=== PATIENT | female | born 1955 | race Two or more races ===

== ENCOUNTER 2021-06-13 10:00 | Outpatient (REF) | payer MEDICARE, MEDICAID, SELFPAY ==
--- NOTE | 2021-06-19 13:30 | MHC.AU.HAS ---
Hearing Aid Evaluation Date of Visit: 06/13/21 Missile Inspector Preflight Used: Declined by Patient Historical Information: Description of Hearing: Borderline normal hearing thresholds at 250 Hz, dropping to a severe high frequency sensorineural hearing loss bilaterally. Current personal amplification information, if applicable: None Summary: Patient is scheduled for a Hearing Aid Evaluation and comes today with an audiogram and medical clearance from [facility]. Discussed the need for consistent every day use and realistic expectations for hearing aids. Patient would like to trial. Discussed appropriate styles of hearing aids and patient wants to try binaural MESFIN style hearing aids. Due to arthritis, patient would like rechargeable hearing aids. Hearing Aid Prescription: Based on the individual?s shared listening needs, communication environments, dexterity, desire for connectivity, and personal preferences, the following prescription for amplification has been made: Right ear: Job Service Consultant: Phonak Model: [place] P 70-R Battery Size: Rechargeable Color: Champagne Rehabilitation Physician: #2 M Type of Dome: Open Left ear:Left ear prescription to be same as Right Hearing Aid above: Job Service Consultant: Phonak Model: [place] P 70-R Battery Size: Rechargeable Color: Champagne Rehabilitation Physician: #2 M Type of Dome: Open Plan of Care: Patient wishes to purchase hearing aids as prescribed Action Taken/Action Needed: Hearing Instrument Fitting to be scheduled when materials arrive Primary Diagnosis: H90.3 Bilateral Sensorineural Hearing Loss Signature:Provider: Adelfo Ennis, CCC-A
== END 2021-06-13 10:01 | disposition home or self-care (01) ==
LOC: HO.HAP 10:00
PROVIDERS: Visit Provider Otolaryngology
DX: Z46.1 Encounter for fitting and adjustment of hearing aid (principal); H90.3 Sensorineural hearing loss, bilateral
CPT/HCPCS: 92591

== ENCOUNTER 2021-07-11 10:04 | Outpatient (REF) | payer MEDICARE, MEDICAID, SELFPAY | END 2021-07-11 10:05 | disposition home or self-care (01) | LOC: HO.HAP 10:04 | PROVIDERS: Visit Provider Otolaryngology | DX: Z46.1 Encounter for fitting and adjustment of hearing aid (principal); H90.3 Sensorineural hearing loss, bilateral | CPT/HCPCS: V5011; V5020; V5160; V5261 ==

== ENCOUNTER 2022-08-21 09:41 | Observation (INO) | payer MEDICARE, MEDICAID, SELFPAY ==
[2022-08-21] VITALS (9 sets, daily range): BP systolic 101–149; BP diastolic 51–88; PULSE 61–95; RESP 14–18; TEMP 36.7–37.3; O2SAT 96–100; BMI 30.4
--- NOTE | ~2022-08-21 | XR_ITS ---
EXAMINATION: XR chest 2V CLINICAL INFORMATION: Reason for Exam dizziness, r/o pna COMPARISON: No prior chest x-ray available in our system for comparison at the time of this dictation. TECHNIQUE: XR chest 2V Limited lateral view overexposed. Lungs and Aleena: No radiographic evidence of acute infiltrates or failure. Pleura: Normal. Costophrenic angles are sharp. No pneumothorax. Heart: The heart is normal in size. Mediastinum: The mediastinum is within normal limits.. Bones: Skeletal structures included are normal for patient's age. XR/XR chest 2V IMPRESSION: No radiographic evidence of acute cardiopulmonary disease.
--- NOTE | ~2022-08-21 | CT_ITS ---
EXAMINATION: CT HEAD WITHOUT CONTRAST CLINICAL INFORMATION: Dizziness COMPARISON: None available. TECHNIQUE: Contiguous axial imaging was performed from the skull base to vertex without intravenous administration of contrast. This CT examination was performed using dose optimization techniques as appropriate, variously including the following: *Automated exposure control *Adjustment of mA and/or kV according to patient size (this includes techniques or standardized protocols for targeted exams where dose is matched to indication/reason for exam; i.e. extremities or head) *Use of iterative reconstruction technique DLP: 608 mGy-cm FINDINGS: There is no evidence of an extra-axial collection. There is no evidence of intra or extra-axial hemorrhage. Ventricles and extra-axial CSF spaces are slightly prominent suggestive of mild generalized atrophy. Alvarado-white matter differentiation is normal. No mass, mass effect or infarct. Small polyp or cyst in the right maxillary sinus. Paranasal sinuses, mastoid air cells and middle ears are otherwise clear. CT/CT head/brain wo IV con IMPRESSION: No acute findings.
--- NOTE | 2022-08-21 10:49 | ED_ITS ---
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 States she feels as though the room is spinning. Denies worse with head movement. Denies feeling lightheaded, denies syncope. Denies headache. Denies blurred vision but states that she has difficulty concentrating on what she is looking at due to dizziness. States last night around 8pm she sat on the couch to eat some vegetables and became diaphoretic. States she has had similar symptoms in the past for which she has seen her PCP. States she was prescribed a medication for her dizziness, but is unsure the name. She took this for her current symptoms without improvement. Denies tinnitus. Reports difficulty with ambulation due to dizziness. She denies any chest pain or dyspnea. Denies fevers. Denies any abdominal pain. She does report nausea, but denies any vomiting. Denies diarrhea or constipation, reports some dark stools the past f ew days. Denies dysuria, hematuria, or other urinary symptoms. Denies back or flank pain. MD complaint: dizziness Onset (ago): day(s) Pain Consistency: constant Relieving factors: none Exacerbating factors: none Associated symptoms: nausea/vomiting (reports nausea, denies vomiting) Related Data Allergies Allergy/AdvReac Type Severity Reaction Status Date / Time No Known Allergies Allergy Verified 08/21/22 09:54 Review of Systems Review of Systems: As per HPI. Yes all other systems are reviewed and are negative Constitutional: Constitutional: Reports as per HPI Neurologic: Denies Abnormal speech present [facility] Social History Social History Advance Directives: No Advance Directives Information Provided: Yes Physical Exam ED Vital Signs: Vital Signs - 24 hr 08/21/22 09:56 08/21/22 12:20 08/21/22 14:10 Temperature 99.1 F 98.1 F Pulse Rate 65 61 64 Respiratory Rate 15 14 Blood Pressure 118/66 132/68 133/66 Pulse Oximetry 98 99 Oxygen Delivery Method Room Air Room Air 08/21/22 14:14 08/21/22 14:23 08/21/22 14:13 Temperature 98.9 F Pulse Rate 70 62 68 Respiratory Rate 18 Blood Pressure 149/79 H 149/79 H 149/79 H Pulse Oximetry 100 Oxygen Delivery Method Room Air BMI result Body Mass Index 30.0 Vital signs have been reviewed and appear to be correct. Blood pressure normal. Heart rate normal. Respiratory rate normal. Temperature normal. Oxygen saturation normal. Const General: cooperative, no acute distress and awake Orientation/consciousness: oriented to person, oriented to place, oriented to time and patient oriented x3 Limitations: no limitations HENMT Head: Yes normocephalic and Yes atraumatic Ears: external ears normal General nose exam: Normal external nose present Face and sinus: Yes face symmetric Mouth: oropharynx normal and moist mucous membranes Teeth and gingiva: edentulous Throat: Yes uvula midline Eyes Visual Cochran: normal visual cochran by confrontation Pupils: Equal, round and reactive pupils present EOM: EOMs intact bilaterally and No Nystagmus present Neck Neck: Yes normal visual inspection and Yes supple Resp Effort & Inspection: normal respiratory effort and able to speak in complete sentences Auscultation: clear to auscultation bilaterally Cardio Rate: regular rate Rhythm: regular rhythm Heart sounds: S1 normal heart sound present and S2 normal heart sound present GI Other: Rectal exam chaperoned by BEA Guthrie. Inspection: Yes normal to inspection Palpation (GI): Soft to palpation and nontender Auscultation: normoactive bowel sounds Rectal Exam - Female: normal sphincter tone and External hemorrhoid(s) present General: Yes no CVA tenderness Back/Spine/Pelvis Back: no CVA tenderness Skin General skin exam: elasticity normal and turgor normal Neuro General: oriented to person, oriented to place, oriented to time, patient oriented x3, tone normal, moves all extremities, no focal motor deficits, CN's II-XI intact bilaterally and deep tendon reflexes 2+ bilaterally Cranial nerves: Yes Equal, round and reactive pupils present and No Nystagmus present Cognition (Neuro): normal cognition Speech: No Abnormal speech present Motor exam (neuro): Pronator motor function not present, no tremor noted, Normal motor muscle tone present throughout and Abnormal motor strength present bila teral lower extremity flexion 4 / 5 and extension 4 / 5 Coordination: [id number] test normal and [id number] test normal Extrem General: Yes full ROM, Yes no pedal edema and Yes no calf tenderness Psych Mental Status: mental status grossly normal Affect: normal affect Thought process: Normal thought process present NIH Stroke Scale Internal: Initial- Upon Arrival Time: 11:14 Level of Consciousness: Alert Level of Consciousness Questions: Answers both questions correctly Level of Consciousness Commands: Performs both tasks correctly Best Gaze: Normal Visual: No visual loss Facial Palsy: Normal Motor Arm (Right): No drift Motor Arm (Left): No drift Motor Leg (Right): No drift Motor Leg (Left): No drift Limb Ataxia: Absent Sensory: Normal Best Language: No aphasia Dysarthia: Normal Extinction and Inattention: No abnormality Score: 0 Course Course Course Narrative: 13:40 UA positive for 2+ leukocytes, (+) nitrites, 6-10 WBCs. Ordered cephalexin. No evidence of sepsis at this time. No leukocytosis, H&H normal, lactic WNL. No acute findings on CXR or CT head. Awaiting remaining labs. 14:00 Mild elevation of LFTs, likely from dehydration. Patient denies any parisi ge in dizziness since meclizine, cannot rule out posterior stroke. Patient's daughter now at bedside, reports history of diet controlled DM, does not take any medications for this, anxiety, and depression. Normally goes to [facility]. Patient and daughter updated on all results and are agreeable with plan. [place] Text to Dr. Holloway for admission. Medications Administered Discontinued Medications Generic Name Dose Route Start Last Admin Trade Name Freq PRN Reason Stop Dose Admin Acetaminophen 650 mg 08/21/22 14:04 08/21/22 14:25 Acetaminophen 325 Mg Tablet PO 08/21/22 14:05 650 mg ONCE ONE Administration Cephalexin HCl 500 mg 08/21/22 13:54 08/21/22 14:26 Cephalexin 500 Mg Capsule PO 08/21/22 13:55 500 mg ONCE ONE Administration Meclizine HCl 25 mg 08/21/22 11:08 08/21/22 11:38 Meclizine Hcl 25 Mg Tablet PO 08/21/22 11:09 25 mg ONCE ONE Administration Medical Decision Making Medical Decision Making [facility] Narrative: Patient is a 67-year-old female, unable to report past medical history presenting to the emergency department with 2-3 days of constant dizziness and nausea. On exam patient is awake, A+Ox3, VS WNL, normal neurological exam without focal deficits, NIHSS 0, unable to assess Rhomberg/gait as patient states she is unable, LS CTA, abdomen is soft and nontender. Concern for ICH/posterior CVA, ACS, anemia, GI bleed, electrolyte abnormality, infection such as UTI or pneumonia, dehydration, BPPV. Unlikely carotid artery dissection. Do not suspect sepsis at this time but will obtain blood cultures and lactic. Plan: EKG, labs including blood cultures, CXR, CT head, UA, medicate with meclizine Please refer to course for remaining clinical decision making. Differential Diagnosis Differential Diagnoses: The differential diagnosis associated with the presentation includes As above. Admission/Observation Consideration of admission/observation: Escalation of care including admission/observation considered Lab Data MDM Lab Attestation statement: I reviewed the patient's lab results. 08/21/22 13:05 08/21/22 13:05 Labs: Lab Results 08/21/22 08/21/22 08/21/22 Range/Units 11:42 11:42 13:05 WBC 5.7 (4.8-10.8) X10*3/uL RBC 4.02 L (4.20-5.50) X10*6/uL Hgb 12.0 (12.0-16.0) g/dl Hct 37.4 (37.0-47.0) % MCV 93.0 (80.0-98.0) fL MCH 29.9 (27.0-33.0) pg MCHC 32.1 (31.0-35.0) g/dl RDW 13.0 (11.0-16.0) % Plt Count 224 (160-400) X10*3/uL MPV 10.5 (9.4-12.3) fL Immature Gran % (Auto) 0.2 (0.0-0.4) % Neut % (Auto) 53.8 (45-73) % Lymph % (Auto) 29.9 (20-40) % [place] % (Auto) 7.2 (2-11) % Eos % (Auto) 7.5 H (0-4) % Baso % (Auto) 1.4 (0-2) % Lymph # (Auto) 1.7 (1.2-4.9) X10*3/uL [place] # (Auto) 0.4 (0.1-1.2) X10*3/uL Eos # (Auto) 0.4 (0.0-0.4) X10*3/uL Baso # (Auto) 0.1 (0.0-0.2) X10*3/uL Abs Immat Gran (auto) 0.01 (0.00-0.03) X10*3/uL Absolute Neuts (auto) 3.1 (2.0-8.3) x10*3/uL Absolute Nucleated RBC 0.000 (0.0-0.012) X10*3/uL Nucleated RBC % (auto) 0.0 (0.0-0.2) /100WBC PT (10.0-13.1) SEC INR (0.9-1.1) Sodium (135-145) mmol/L Potassium (3.3-5.1) mmol/L Chloride (96-108) mmol/L Carbon Dioxide (22-29) mmol/L Anion Gap (12-20) BUN (9-16) mg/dL Creatinine (0.5-1.4) mg/dL Estim Creat Clear Calc Estimated GFR Random Glucose (60-115) mg/dL Lactic Acid (0.5-2.0) mmol/L Calcium (8.4-10.2) mg/dL Total Bilirubin (0.0-1.0) mg/dL AST (5-31) U/L ALT (0-31) U/L Alkaline Phosphatase (39-117) U/L Troponin I High Sens (<3.5-17.0) ng/L Total Protein (6.5-8.0) g/dL Albumin (3.5-5.0) g/dL Lipase (8-78) U/L Urine Color Yellow Urine Appearance Clear Urine pH 8.5 (5.0-9.0) Ur Specific [place] 1.010 (1.005-1.025) Urine Protein Negative (Neg-Trace) mg/dL Urine Glucose (UA) Negative (Negative) mg/dL Urine Ketones Negative (Negative) mg/dL Urine Blood Negative (Negative) Urine Nitrite Positive H (Negative) Ur Leukocyte Esterase Moderate (2+) H (Negative) Urine RBC 0-2 (0-2) /HPF Urine WBC 6-10 H (0-5) /HPF Ur Squamous Epith Cells 3-5 (0-2) /HPF Urine Bacteria Trace (None Seen) Hyaline Casts 0-2 (0-2) /LPF Stool Occult Blood NEGATIVE (NEGATIVE) Blood Type Antibody Screen 08/21/22 08/21/22 08/21/22 Range/Units 13:05 13:05 13:05 WBC (4.8-10.8) X10*3/uL RBC (4.20-5.50) X10*6/uL Hgb (12.0-16.0) g/dl Hct (37.0-47.0) % MCV (80.0-98.0) fL MCH (27.0-33.0) pg MCHC (31.0-35.0) g/dl RDW (11.0-16.0) % Plt Count (160-400) X10*3/uL MPV (9.4-12.3) fL Immature Gran % (Auto) (0.0-0.4) % Neut % (Auto) (45-73) % Lymph % (Auto) (20-40) % [place] % (Auto) (2-11) % Eos % (Auto) (0-4) % Baso % (Auto) (0-2) % Lymph # (Auto) (1.2-4.9) X10*3/uL [place] # (Auto) (0.1-1.2) X10*3/uL Eos # (Auto) (0.0-0.4) X10*3/uL Baso # (Auto) (0.0-0.2) X10*3/uL Abs Immat Gran (auto) (0.00-0.03) X10*3/uL Absolute Neuts (auto) (2.0-8.3) x10*3/uL Absolute Nucleated RBC (0.0-0.012) X10*3/uL Nucleated RBC % (auto) (0.0-0.2) /100WBC PT (10.0-13.1) SEC INR (0.9-1.1) Sodium 143 (135-145) mmol/L Potassium 3.8 (3.3-5.1) mmol/L Chloride 109 H (96-108) mmol/L Carbon Dioxide 25 (22-29) mmol/L Anion Gap 13 (12-20) BUN 18 H (9-16) mg/dL Creatinine 0.98 (0.5-1.4) mg/dL Estim Creat Clear Calc 49.8 Estimated GFR 56 Random Glucose 79 (60-115) mg/dL Lactic Acid 0.9 (0.5-2.0) mmol/L Calcium 9.7 (8.4-10.2) mg/dL Total Bilirubin 0.7 (0.0-1.0) mg/dL AST 56 H (5-31) U/L ALT 47 H (0-31) U/L Alkaline Phosphatase 111 (39-117) U/L Troponin I High Sens < 2.7 (<3.5-17.0) ng/L Total Protein 6.8 (6.5-8.0) g/dL Albumin 3.8 (3.5-5.0) g/dL Lipase 51 (8-78) U/L Urine Color Urine Appearance Urine pH (5.0-9.0) Ur Specific [place] (1.005-1.025) Urine Protein (Neg-Trace) mg/dL Urine Glucose (UA) (Negative) mg/dL Urine Ketones (Negative) mg/dL Urine Blood (Negative) Urine Nitrite (Negative) Ur Leukocyte Esterase (Negative) Urine RBC (0-2) /HPF Urine WBC (0-5) /HPF Ur Squamous Epith Cells (0-2) /HPF Urine Bacteria (None Seen) Hyaline Casts (0-2) /LPF Stool Occult Blood (NEGATIVE) Blood Type Antibody Screen 08/21/22 08/21/22 Range/Units 13:05 13:05 WBC (4.8-10.8) X10*3/uL RBC (4.20-5.50) X10*6/uL Hgb (12.0-16.0) g/dl Hct (37.0-47.0) % MCV (80.0-98.0) fL MCH (27.0-33.0) pg MCHC (31.0-35.0) g/dl RDW (11.0-16.0) % Plt Count (160-400) X10*3/uL MPV (9.4-12.3) fL Immature Gran % (Auto) (0.0-0.4) % Neut % (Auto) (45-73) % Lymph % (Auto) (20-40) % [place] % (Auto) (2-11) % Eos % (Auto) (0-4) % Baso % (Auto) (0-2) % Lymph # (Auto) (1.2-4.9) X10*3/uL [place] # (Auto) (0.1-1.2) X10*3/uL Eos # (Auto) (0.0-0.4) X10*3/uL Baso # (Auto) (0.0-0.2) X10*3/uL Abs Immat Gran (auto) (0.00-0.03) X10*3/uL Absolute Neuts (auto) (2.0-8.3) x10*3/uL Absolute Nucleated RBC (0.0-0.012) X10*3/uL Nucleated RBC % (auto) (0.0-0.2) /100WBC PT 12.0 (10.0-13.1) SEC INR 1.0 (0.9-1.1) Sodium (135-145) mmol/L Potassium (3.3-5.1) mmol/L Chloride (96-108) mmol/L Carbon Dioxide (22-29) mmol/L Anion Gap (12-20) BUN (9-16) mg/dL Creatinine (0.5-1.4) mg/dL Estim Creat Clear Calc Estimated GFR Random Glucose (60-115) mg/dL Lactic Acid (0.5-2.0) mmol/L Calcium (8.4-10.2) mg/dL Total Bilirubin (0.0-1.0) mg/dL AST (5-31) U/L ALT (0-31) U/L Alkaline Phosphatase (39-117) U/L Troponin I High Sens (<3.5-17.0) ng/L Total Protein (6.5-8.0) g/dL Albumin (3.5-5.0) g/dL Lipase (8-78) U/L Urine Color Urine Appearance Urine pH (5.0-9.0) Ur Specific [place] (1.005-1.025) Urine Protein (Neg-Trace) mg/dL Urine Glucose (UA) (Negative) mg/dL Urine Ketones (Negative) mg/dL Urine Blood (Negative) Urine Nitrite (Negative) Ur Leukocyte Esterase (Negative) Urine RBC (0-2) /HPF Urine WBC (0-5) /HPF Ur Squamous Epith Cells (0-2) /HPF Urine Bacteria (None Seen) Hyaline Casts (0-2) /LPF Stool Occult Blood (NEGATIVE) Blood Type O Positive Antibody Screen NEGATIVE Independent Interpretation I performed an independent interpretation of an: EKG and Plain X-Ray Interpretation: EKG: sinus bradycardia, rate 59, normal IL interval, no evidence of STEMI I independently reviewed the x-ray and CT scan and agree with the radiologist's interpretation. Radiology Impression Discussion of test interpretation with radiology: I have reviewed the radiologist's reading. Radiologist Impression: XR/XR chest 2V IMPRESSION: No radiographic evidence of acute cardiopulmonary disease. CT/CT head/brain wo IV con IMPRESSION: No acute findings. External Record Review External record reviewed: Inpatient record, Office record and Outpatient record Discharge Plan Discharge Clinical Impression: Dizziness Patient Disposition: Admitted As Inpatient
--- NOTE | 2022-08-21 10:52 | ECG_ITS ---
Test Reason : DIZZY Blood Pressure : / mmHG Vent. Rate : 059 BPM Atrial Rate : 059 BPM P-R Int : 192 ms QRS Dur : 090 ms QT Int : 436 ms P-R-T Axes : 028 001 045 degrees QTc Int : 431 ms Sinus bradycardia Otherwise normal ECG When compared with ECG of 13-AUG-2001 14:15, Vent. rate has decreased BY 34 BPM QRS voltage has decreased Referred By: Marcie Mancilla Electronically Signed By:ZHOU OLIVIER
[2022-08-21] MEDS: Meclizine HCl 25 MG TABLET PO (11:38)
--- NOTE | 2022-08-21 11:40 | PC.NURSE ---
pt to CT scan. reports dizziness. otherwise, pt is aox4. talking w/o issue. no respiratory distress.
[2022-08-21 11:56] LABS: OBS Int Ctl Valid YES; OBS1 NEGATIVE (NEGATIVE)
[2022-08-21 12:01] LABS: Appearance Urine Clear; Color Urine Yellow; Glucose Urine UA Negative (Negative); Leukocyte Esterase Urine Moderate (2+) (Negative); Nitrite Urine Positive (Negative); PH 8.5 (5.0-9.0); UMIC TRIGGER UACC YES; Urine Blood Negative (Negative); Urine Ketones Negative (Negative); Urine Protein Negative (Neg-Trace)
[2022-08-21 12:08] LABS: Bacteria Urine Trace (None Seen); Hyaline Casts Urine 0-2 /LPF (0-2); RBC Urine 0-2 /HPF (0-2); UACC Culture Trigger YES
--- NOTE | 2022-08-21 12:11 | PC.NURSE ---
diet therapist paged for continued pt assessment and education of plan of care.
--- NOTE | 2022-08-21 12:25 | PC.NURSE ---
w/bill cutter and pt jacque at bedside. aox4. reports dizziness/headache since prior to arrival. vss at this time. no resp distress. JAVIER equally. no facial droop. denies numb/tingling. denies cp.
[2022-08-21 13:14] LABS: MANUAL DIFF FLAG NO
[2022-08-21 13:16] LABS: Basophils Absolute Auto 0.1 X10*3/uL (0.0-0.2); Basophils Percent Auto 1.4 % (0-2); Eosinophils Absolute Auto 0.4 X10*3/uL (0.0-0.4); Eosinophils Percent Auto 7.5 % (0-4); Hematocrit 37.4 % (37.0-47.0); Imm Gran Abs Auto 0.01 X10*3/uL (0.00-0.03); Imm Gran Pct Auto 0.2 % (0.0-0.4); Lymphocytes Absolute Auto 1.7 X10*3/uL (1.2-4.9); Lymphocytes Percent Auto 29.9 % (20-40); Mean Corpuscular HGB Conc 32.1 g/dl (31.0-35.0); Mean Corpuscular Hemoglobin 29.9 pg (27.0-33.0); Mean Platelet Volume 10.5 fL (9.4-12.3); Monocytes Absolute Auto 0.4 X10*3/uL (0.1-1.2); Monocytes Percent Auto 7.2 % (2-11); Neutrophils Absolute Auto 3.1 x10*3/uL (2.0-8.3); Neutrophils Percent Auto 53.8 % (45-73); Platelet Count 224 X10*3/uL (160-400); Red Blood Count 4.02 X10*6/uL (4.20-5.50); White Blood Count 5.7 X10*3/uL (4.8-10.8)
[2022-08-21 13:44] LABS: Lactic Acid 0.9 mmol/L (0.5-2.0)
[2022-08-21 13:51] LABS: Alanine Aminotransferase 47 U/L (0-31); Albumin Level 3.8 g/dL (3.5-5.0); Alkaline Phosphatase 111 U/L (39-117); Anion Gap 13 (12-20); Aspartate Amino Transferase 56 U/L (5-31); Bilirubin Total 0.7 mg/dL (0.0-1.0); Blood Urea Nitrogen 18 mg/dL (9-16); Calcium 9.7 mg/dL (8.4-10.2); Carbon Dioxide 25 mmol/L (22-29); Chloride 109 mmol/L (96-108); Creatinine Clr Calc Pharmacy 49.8; Estimated Glomerular Filt Rate 56; Glucose Random 79 mg/dL (60-115); Lipase 51 U/L (8-78); Potassium 3.8 mmol/L (3.3-5.1); Sodium 143 mmol/L (135-145); Total Protein 6.8 g/dL (6.5-8.0); Troponin-I High Sensitivity < 2.7 ng/L (<3.5-17.0)
[2022-08-21] MEDS: Acetaminophen 325 MG TABLET 650 MG PO (14:25)
[2022-08-21] MEDS: cephALEXin 500 MG CAPSULE PO (14:26)
--- NOTE | 2022-08-21 15:19 | P.HPHOSP_ITS ---
History of Present Illness Date of Service: 08/21/22 Chief Complaint: dizziness ?67-year-old female, unable to report past medical history presenting to the emergency department with 2-3 days of constant dizziness.? States she feels as though the room is spinning.? Denies worse with head movement.? Denies feeling lightheaded, denies syncope.? Denies headache.? Denies blurred vision but states that she has difficulty concentrating on what she is looking at due to dizziness.? States last night around 8pm she sat on the couch to eat some vegetables and became diaphoretic.? States she has had similar symptoms in the past for which she has seen her PCP.? States she was prescribed a medication for her dizziness, but is unsure the name.? She took this for her current symptoms without improvement.? Denies tinnitus.? Reports difficulty with ambulation due to dizziness.? She denies any chest pain or dyspnea.?Unable to walk with max assist per ER. 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; Denies chest pain Denies shortness of breath Admits nausea denies vomiting diarrhea Denies fever chills PMFSH Social History Patient Tobacco Use Status: Never used Tobacco Meds Allergies Allergy/AdvReac Type Severity Reaction Status Date / Time No Known Allergies Allergy Verified 08/21/22 09:54 Active Medications: Current Medications Enoxaparin Sodium (Enoxaparin Sodium 40 Mg/0.4 Ml Syringe) 40 mg SUBCUT Q24H [facility] Lactated Ringer's (Lr) 1,000 mls @ 100 mls/hr IVCONT .Q10H [facility] Pharmacy Consult (Consult Rx Perform Med Rec) 1 each MISCELLANE ONCE PRN PRN Reason: Consult order Sodium Chloride (0.9 % Sodium Chloride Flush 3 Ml Syringe) 3 ml IVFLUSH QSHIFT [facility] Home Medications Medication Instructions Recorded Confirmed Last Taken Type atorvastatin 20 mg tablet 20 mg PO DAILY 08/21/22 08/21/22 Unknown History bupropion HCl 200 mg tablet,12 hr 200 mg PO QAM 08/21/22 08/21/22 Unknown History sustained-release buspirone 5 mg tablet 5 mg PO QAM 08/21/22 08/21/22 Unknown History clonazepam 0.5 mg tablet 0.5 mg PO BID PRN Anxiety 08/21/22 08/21/22 Unknown History famotidine 20 mg tablet 20 mg PO DAILY 08/21/22 08/21/22 Unknown History meclizine 25 mg tablet 25 mg PO BID PRN Dizziness 08/21/22 08/21/22 Unknown History meloxicam 7.5 mg tablet 15 mg PO DAILY 08/21/22 08/21/22 Unknown History ondansetron 4 mg disintegrating 2 mg PO Q6-8H PRN Nausea 08/21/22 08/21/22 Unknown History tablet quetiapine 100 mg tablet 100 mg PO BEDTIME 08/21/22 08/21/22 Unknown History quetiapine 50 mg tablet 50 mg PO BEDTIME 08/21/22 Unknown History trazodone 100 mg tablet 200 mg PO BEDTIME 08/21/22 08/21/22 Unknown History Physical Exam Vital Signs and Narrative: Vital Signs: Last Vital Signs Temp 98.9 F 08/21/22 14:23 Pulse 62 08/21/22 14:23 Resp 18 08/21/22 14:23 BP 149/79 H 08/21/22 14:23 Pulse Ox 100 08/21/22 14:23 O2 Del Method Room Air 08/21/22 14:23 BMI result Body Mass Index 30.0 Const: Other: Awake alert no acute distress Resp: Other: Clear to auscultation bilaterally no rales rhonchi or wheezes Cardio: Other: No S4; positive S1-S2; no S3 murmurs rubs or gallops GI: Other: Soft nontender nondistended normoactive bowel sounds Neuro: Other: Cranial nerves 2 through 12 grossly intact as tested. No observe nystagmus. Motor 5/5 as tested in bed sensation intact Extrem: Other: No edema Results Labs 08/21/22 13:05 08/21/22 13:05 Labs: Laboratory Results - last 24 hr 08/21/22 08/21/22 08/21/22 11:42 11:42 13:05 MCV 93.0 MCH 29.9 MCHC 32.1 RDW 13.0 Plt Count 224 MPV 10.5 Immature Gran % (Auto) 0.2 Neut % (Auto) 53.8 Lymph % (Auto) 29.9 Keith % (Auto) 7.2 Eos % (Auto) 7.5 H Baso % (Auto) 1.4 Lymph # (Auto) 1.7 Keith # (Auto) 0.4 Eos # (Auto) 0.4 Baso # (Auto) 0.1 Abs Immat Gran (auto) 0.01 Absolute Neuts (auto) 3.1 Absolute Nucleated RBC 0.000 Nucleated RBC % (auto) 0.0 PT INR Anion Gap Estim Creat Clear Calc Estimated GFR Random Glucose Lactic Acid Calcium Total Bilirubin AST ALT Alkaline Phosphatase Troponin I High Sens Total Protein Albumin Lipase Urine Color Yellow Urine Appearance Clear Urine pH 8.5 Ur Specific Childress 1.010 Urine Protein Negative Urine Glucose (UA) Negative Urine Ketones Negative Urine Blood Negative Urine Nitrite Positive H Ur Leukocyte Esterase Moderate (2+) H Urine RBC 0-2 Urine WBC 6-10 H Ur Squamous Epith Cells 3-5 Urine Bacteria Trace Hyaline Casts 0-2 Stool Occult Blood NEGATIVE Blood Type Antibody Screen 08/21/22 08/21/22 08/21/22 13:05 13:05 13:05 MCV MCH MCHC RDW Plt Count MPV Immature Gran % (Auto) Neut % (Auto) Lymph % (Auto) Keith % (Auto) Eos % (Auto) Baso % (Auto) Lymph # (Auto) Keith # (Auto) Eos # (Auto) Baso # (Auto) Abs Immat Gran (auto) Absolute Neuts (auto) Absolute Nucleated RBC Nucleated RBC % (auto) PT INR Anion Gap 13 Estim Creat Clear Calc 49.8 Estimated GFR 56 Random Glucose 79 Lactic Acid 0.9 Calcium 9.7 Total Bilirubin 0.7 AST 56 H ALT 47 H Alkaline Phosphatase 111 Troponin I High Sens < 2.7 Total Protein 6.8 Albumin 3.8 Lipase 51 Urine Color Urine Appearance Urine pH Ur Specific Childress Urine Protein Urine Glucose (UA) Urine Ketones Urine Blood Urine Nitrite Ur Leukocyte Esterase Urine RBC Urine WBC Ur Squamous Epith Cells Urine Bacteria Hyaline Casts Stool Occult Blood Blood Type Antibody Screen 08/21/22 08/21/22 13:05 13:05 MCV MCH MCHC RDW Plt Count MPV Immature Gran % (Auto) Neut % (Auto) Lymph % (Auto) Keith % (Auto) Eos % (Auto) Baso % (Auto) Lymph # (Auto) Keith # (Auto) Eos # (Auto) Baso # (Auto) Abs Immat Gran (auto) Absolute Neuts (auto) Absolute Nucleated RBC Nucleated RBC % (auto) PT 12.0 INR 1.0 Anion Gap Estim Creat Clear Calc Estimated GFR Random Glucose Lactic Acid Calcium Total Bilirubin AST ALT Alkaline Phosphatase Troponin I High Sens Total Protein Albumin Lipase Urine Color Urine Appearance Urine pH Ur Specific Childress Urine Protein Urine Glucose (UA) Urine Ketones Urine Blood Urine Nitrite Ur Leukocyte Esterase Urine RBC Urine WBC Ur Squamous Epith Cells Urine Bacteria Hyaline Casts Stool Occult Blood Blood Type O Positive Antibody Screen NEGATIVE Imaging Radiologist's Impressions: Impressions Head CT 08/21/22 11:56 IMPRESSION: No acute findings. Chest X-Ray 08/21/22 12:03 IMPRESSION: No radiographic evidence of acute cardiopulmonary disease. Comment: 59-year-old female with abrupt onset of what she describes as dizziness the and turbid her. She states she was eating on the couch in developed vision changes and then dizziness which is worse when she moves her head. She denies nausea vomiting fever chills. In the emergency room workup including chest x-ray head CT and labs failed to demonstrate any acute issues to explain symptoms. Per ER MD, when attempted ambulation required to assist and was very unsteady. We be admitted for workup of the same 1. Dizziness -observe on telemetry -volume repletion -neuro consult (will hold on MRI pending this consult) Patient's daughter states all care at [facility]. [facility] records reviewed .....no data over last 5 years 2. Mood disorder -continue outpatient therapies Patient will require overnight inpatient stay to complete workup for dizziness and receive neuro consult. Assessment and Plan (1) Dizziness: Status: Acute Time Spent With Patient Time: Total time managing care of this patient today ____ minutes. Quality Stroke Does the patient have a stroke diagnosis?: No VTE Prior VTE?: No VTE Risk Level:: Medical - moderate - high VTE Device Contraindication: Treatment Not Indicated VTE Drug Contraindication: N/A - Med Ordered
--- NOTE | 2022-08-21 15:33 | PHA.MEDREC ---
Pharmacy Consult ? Medication Reconciliation Pharmacy has completed the medication reconciliation. Spoke with daughter over the phone. She was able to confirm most of her medications. The buspirone and famotidine are both prescribed as BID according to claim history, however the daughter claims she takes them once daily. She also said she takes quetiapine 100mg at bedtime but claim history shows she also picks up 50mg with the 100mg.
[2022-08-21] MEDS: Enoxaparin Sodium 40 MG/0.4 ML SYRINGE SUBCUT (16:43)
[2022-08-21] MEDS: Lactated Ringers 1,000 ML 100 ML IVCONT (16:44)
[2022-08-21] MEDS: 0.9 % Sodium Chloride Flush 3 ML SYRINGE IVFLUSH ×2 (16:45→21:41)
--- NOTE | 2022-08-21 18:19 | PC.NURSE ---
RN-RN report called into [facility]. Transport notified.
[2022-08-21] MEDS: clonazePAM 0.5 MG TABLET PO (20:51)
[2022-08-21] MEDS: traZODone HCL 100 MG TABLET 200 MG PO (20:51)
[2022-08-21] MEDS: QUEtiapine Fumarate 100 MG TABLET PO (20:51)
[2022-08-21] MEDS: NaPROXEN 250 MG TABLET PO (21:39)
[2022-08-22] MEDS: Lactated Ringers 1,000 ML 100 ML IVCONT (01:24)
[2022-08-22 03:14] VITALS: BP 114/56; PULSE 66; RESP 14; TEMP 36.1; O2SAT 98
[2022-08-22 06:11] LABS: MANUAL DIFF FLAG NO
[2022-08-22 06:18] LABS: Basophils Absolute Auto 0.1 X10*3/uL (0.0-0.2); Basophils Percent Auto 1.7 % (0-2); Eosinophils Absolute Auto 0.5 X10*3/uL (0.0-0.4); Eosinophils Percent Auto 11.2 % (0-4); Hematocrit 33.9 % (37.0-47.0); Hemoglobin 10.9 g/dl (12.0-16.0); Imm Gran Abs Auto 0.01 X10*3/uL (0.00-0.03); Imm Gran Pct Auto 0.2 % (0.0-0.4); Lymphocytes Absolute Auto 1.2 X10*3/uL (1.2-4.9); Lymphocytes Percent Auto 25.6 % (20-40); Mean Corpuscular HGB Conc 32.2 g/dl (31.0-35.0); Mean Corpuscular Hemoglobin 30.6 pg (27.0-33.0); Mean Corpuscular Volume 95.2 fL (80.0-98.0); Mean Platelet Volume 10.6 fL (9.4-12.3); Monocytes Absolute Auto 0.4 X10*3/uL (0.1-1.2); Monocytes Percent Auto 7.7 % (2-11); Neutrophils Absolute Auto 2.5 x10*3/uL (2.0-8.3); Neutrophils Percent Auto 53.6 % (45-73); Platelet Count 201 X10*3/uL (160-400); Red Blood Count 3.56 X10*6/uL (4.20-5.50); Red Cell Distribution Width 13.2 % (11.0-16.0); White Blood Count 4.7 X10*3/uL (4.8-10.8)
--- NOTE | 2022-08-22 06:37 | PC.NURSE ---
Pt c/o of pain in left arm. Left arm infiltrated with LR. LR stopped, IV removed with catheter tip intact. notified. Pt refused replacement IV to be put in. Cold compress on left arm.
[2022-08-22 06:38] LABS: Alanine Aminotransferase 37 U/L (0-31); Albumin Level 3.2 g/dL (3.5-5.0); Alkaline Phosphatase 90 U/L (39-117); Anion Gap 10 (12-20); Aspartate Amino Transferase 46 U/L (5-31); Bilirubin Total 0.6 mg/dL (0.0-1.0); Blood Urea Nitrogen 18 mg/dL (9-16); Calcium 8.9 mg/dL (8.4-10.2); Carbon Dioxide 25 mmol/L (22-29); Chloride 110 mmol/L (96-108); Creatinine Clr Calc Pharmacy 58.6; Estimated Glomerular Filt Rate > 60; Glucose Fasting 82 mg/dL (60-99); Potassium 3.9 mmol/L (3.3-5.1); Sodium 141 mmol/L (135-145); Total Protein 5.6 g/dL (6.5-8.0)
[2022-08-22 07:29] VITALS: BP 127/73; PULSE 56; RESP 16; TEMP 36.4; O2SAT 99
[2022-08-22] MEDS: Famotidine 20 MG TABLET PO (08:51)
[2022-08-22] MEDS: NaPROXEN 250 MG TABLET PO (08:51)
[2022-08-22] MEDS: buPROPion HCl XL 150 MG TAB.ER.24H PO (08:51)
[2022-08-22] MEDS: Atorvastatin Calcium 20 MG TABLET PO (08:51)
[2022-08-22] MEDS: busPIRone HCl 5 MG TABLET PO (08:52)
[2022-08-22 11:26] VITALS: BP 140/81; PULSE 61; RESP 16; TEMP 36.2; O2SAT 97
--- NOTE | 2022-08-22 11:40 | MHC.CM.PN ---
KRISTIE 08/22. Pt on observation with dizziness. Pt lives at home with her daughter who is also her MIRROR FINISHING MACHINE OPERATOR and HCP (copy requested), pt uses a walker. Daughter Nicky Cassidy [phone]. D/C plan to return home when medically cleared, pts daughter will transport. PCP: Saurabh Agosto
--- NOTE | 2022-08-22 11:46 | P.CNNE_ITS ---
History of Present Illness Data of Consult Service Date: 08/22/22 Primary Care Provider: ADIEL Amaya Reason for consult: Dizziness 67 years old woman with episodic dizziness for few months to years. There was no obvious trigger other than moving her head. Episodes of dizziness were brief lasting for few seconds and mostly involve just spinning sensation with no alteration of consciousness no ear symptom no pain or nausea. Sometime she felt unsteady and uncomfortable. Review of Systems Review of Systems: No cold or flu-like illness no headaches PMFSH Social History Social History Patient Tobacco Use Status: Never used Tobacco service: No Meds Allergies Allergy/AdvReac Type Severity Reaction Status Date / Time No Known Allergies Allergy Verified 08/21/22 09:54 Active Medications: Current Medications Atorvastatin Calcium (Atorvastatin Calcium 20 Mg Tablet) 20 mg PO DAILY [facility] Last Admin: 08/22/22 08:51 Dose: 20 mg Bupropion HCl (Bupropion Hcl Xl 150 Mg Tab.Er.24h) 150 mg PO DAILY [facility] Last Admin: 08/22/22 08:51 Dose: 150 mg Buspirone HCl (Buspirone Hcl 5 Mg Tablet) 5 mg PO DAILY [facility] Last Admin: 08/22/22 08:52 Dose: 5 mg Cefuroxime Axetil (Cefuroxime Axetil 500 Mg Tablet) 500 mg PO Q12H [facility] Last Admin: 08/22/22 08:51 Dose: 500 mg Clonazepam (Clonazepam 0.5 Mg Tablet) 0.5 mg PO BID PRN PRN Reason: Anxiety Last Admin: 08/21/22 20:51 Dose: 0.5 mg Enoxaparin Sodium (Enoxaparin Sodium 40 Mg/0.4 Ml Syringe) 40 mg SUBCUT Q24H [facility] Last Admin: 08/21/22 16:43 Dose: 40 mg Famotidine (Famotidine 20 Mg Tablet) 20 mg PO DAILY [facility] Last Admin: 08/22/22 08:51 Dose: 20 mg Ceftriaxone Sodium 1 gm/ (Sodium Chloride) 50 mls @ 100 mls/hr IV Q24H [facility] Meclizine HCl (Meclizine Hcl 25 Mg Tablet) 25 mg PO BID PRN PRN Reason: Dizziness Naproxen (Naproxen 250 Mg Tablet) 250 mg PO BID [facility] Last Admin: 08/22/22 08:51 Dose: 250 mg Pharmacy Consult (Consult Rx Perform Med Rec) 1 each MISCELLANE ONCE PRN PRN Reason: Consult order Quetiapine Fumarate (Quetiapine Fumarate 100 Mg Tablet) 100 mg PO BEDTIME [facility] Last Admin: 08/21/22 20:51 Dose: 100 mg Sodium Chloride (0.9 % Sodium Chloride Flush 3 Ml Syringe) 3 ml IVFLUSH QSHIFT [facility] Last Admin: 08/22/22 08:54 Dose: Not Given Trazodone HCl (Trazodone Hcl 100 Mg Tablet) 200 mg PO BEDTIME [facility] Last Admin: 08/21/22 20:51 Dose: 200 mg Home Medications Medication Instructions Recorded Confirmed Last Taken Type atorvastatin 20 mg tablet 20 mg PO DAILY 08/21/22 08/21/22 Unknown History bupropion HCl 200 mg tablet,12 hr 200 mg PO DAILY 08/21/22 08/21/22 Unknown History sustained-release buspirone 5 mg tablet 5 mg PO DAILY 08/21/22 08/21/22 Unknown History clonazepam 0.5 mg tablet 0.5 mg PO BID PRN Anxiety 08/21/22 08/21/22 Unknown History famotidine 20 mg tablet 20 mg PO DAILY 08/21/22 08/21/22 Unknown History meclizine 25 mg tablet 25 mg PO BID PRN Dizziness 08/21/22 08/21/22 Unknown History meloxicam 7.5 mg tablet 15 mg PO DAILY 08/21/22 08/21/22 Unknown History ondansetron 4 mg disintegrating 2 mg PO Q6-8H PRN Nausea 08/21/22 08/21/22 Unknown History tablet quetiapine 100 mg tablet 100 mg PO BEDTIME 08/21/22 08/21/22 Unknown History trazodone 100 mg tablet 200 mg PO BEDTIME 08/21/22 08/21/22 Unknown History Physical Exam Vital Signs: Vital Signs: Last Vital Signs Temp 97.1 F 08/22/22 11:26 Pulse 61 08/22/22 11:26 Resp 16 08/22/22 11:26 BP 140/81 H 08/22/22 11:26 Pulse Ox 97 08/22/22 11:26 O2 Del Method Room Air 08/22/22 11:26 BMI result Body Mass Index 30.4 Neuro: Other: Alert and awake with normal spontaneity of speech fluency comprehension and affect. Pupils were equal and reactive to light. Extraocular muscles were intact. Visual tran are full. Face was symmetrical. Deep tendon reflexes were absent. [id number] testing was normal. Speech was normal. Results Labs 08/22/22 05:58 08/22/22 05:58 Labs: Short CBC 08/21/22 08/22/22 Range/Units 13:05 05:58 WBC 5.7 4.7 L (4.8-10.8) X10*3/uL Hgb 12.0 10.9 L (12.0-16.0) g/dl Hct 37.4 33.9 L (37.0-47.0) % Plt Count 224 201 (160-400) X10*3/uL BMP 08/21/22 08/22/22 13:05 05:58 Sodium 143 141 Potassium 3.8 3.9 Chloride 109 H 110 H Carbon Dioxide 25 25 BUN 18 H 18 H Creatinine 0.98 0.84 Calcium 9.7 8.9 D Liver Function 08/21/22 08/22/22 Range/Units 13:05 05:58 Total Bilirubin 0.7 0.6 (0.0-1.0) mg/dL AST 56 H 46 H (5-31) U/L ALT 47 H 37 H (0-31) U/L Alkaline Phosphatase 111 90 (39-117) U/L Albumin 3.8 3.2 L (3.5-5.0) g/dL Urine 08/21/22 Range/Units 11:42 Urine Color Yellow Urine Appearance Clear Urine pH 8.5 (5.0-9.0) Ur Specific Lebeau 1.010 (1.005-1.025) Urine Protein Negative (Neg-Trace) mg/dL Urine Glucose (UA) Negative (Negative) mg/dL Moderate diffuse cortical cerebral atrophy Assessment and Plan (1) Benign positional vertigo: Status: Acute 67 years old woman with benign paroxysmal positional vertigo. With help of her daughter, she was educated about this condition. Mainstay of management is understanding and taking common sense precautions especially in this age group. I do not recommend any medicine or any therapy as she would not be able to follow through with those instructions. (2) FH: Alzheimers disease: Status: Acute Dementia makes overall management and understanding of this type of condition difficult. Time Spent With Patient Time: Total time managing care of this patient today ____ minutes. Procedures Date of Service Date of Service: 08/22/22
--- NOTE | 2022-08-22 15:08 | P.DS_ITS ---
DS: Providers Provider Date of Service: 08/22/22 Date of admission: 08/21/22 15:12 Date of discharge: 08/22/22 Primary care physician: ADIEL Amaya Consults: 08/21/22 15:15 Consult to Neurology Routine Consulting Provider: [facility] Reason for consultation: dizziness Has provider been notified: No DS: Diagnosis Discharge Diagnosis (1) Benign positional vertigo: Status: Acute (2) FH: Alzheimers disease: Status: Acute DS: Summary Hospital Course Hospital Course: 67-year-old female unable to give significant past medical history presents with 2-3 days of dizziness. She states this is worse with her head turning. She denies blurred vision but has difficulty concentrating on which he is looking at due to dizziness. She states this started abruptly. Initial workup in the ER including CT of head was all negative. She was admitted to telemetry overnight where monitor failed to demonstrate any acute dysrhythmias. She was seen in consultation by Neurology who felt this was a benign positional vertigo and normal workup was needed. Neurology educated patient and daughter at this point in time she is medically acceptable for discharge Time Spent with Patient Time attestation: Total time managing care of this patient today ____ minutes. Discharge coordination time: Greater than 30 minutes Quality: Safe Use of Opioids Does Pt have an Active Cancer Diagnosis on the Problem List?: No Quality: Stroke Does the patient have a stroke diagnosis?: No Physical Exam Vital Signs: Vital Signs: Last Vital Signs Temp 97.1 F 08/22/22 11:26 Pulse 61 08/22/22 11:26 Resp 16 08/22/22 11:26 BP 140/81 H 08/22/22 11:26 Pulse Ox 97 08/22/22 11:26 O2 Del Method Room Air 08/22/22 11:26 BMI result Body Mass Index 30.4 Const: Other: Awake alert no acute distress Resp: Other: Clear to auscultation bilaterally no rales rhonchi or wheezes Cardio: Other: No S4; positive S1-S2; no S3 murmurs rubs or gallops GI: Other: Soft nontender nondistended normoactive bowel sounds Neuro: Other: Cranial nerves 2 through 12 grossly intact as tested. No observe nystagmus. Motor 5/5 as tested in bed sensation intact Extrem: Other: No edema DS: Data Data Completed and Pending Labs on day of discharge: Laboratory Results - last 24 hr 08/22/22 08/22/22 05:58 05:58 WBC 4.7 L RBC 3.56 L Hgb 10.9 L Hct 33.9 L MCV 95.2 MCH 30.6 MCHC 32.2 RDW 13.2 Plt Count 201 MPV 10.6 Immature Gran % (Auto) 0.2 Neut % (Auto) 53.6 Lymph % (Auto) 25.6 [place] % (Auto) 7.7 Eos % (Auto) 11.2 H Baso % (Auto) 1.7 Lymph # (Auto) 1.2 [place] # (Auto) 0.4 Eos # (Auto) 0.5 H Baso # (Auto) 0.1 Abs Immat Gran (auto) 0.01 Absolute Neuts (auto) 2.5 Absolute Nucleated RBC 0.000 Nucleated RBC % (auto) 0.0 Sodium 141 Potassium 3.9 Chloride 110 H Carbon Dioxide 25 Anion Gap 10 L BUN 18 H Creatinine 0.84 Estim Creat Clear Calc 58.6 Estimated GFR > 60 Fasting Glucose 82 Calcium 8.9 D Total Bilirubin 0.6 AST 46 H ALT 37 H Alkaline Phosphatase 90 Total Protein 5.6 L Albumin 3.2 L Preliminary micro results at discharge 08/21/22 Unknown Urine Culture - Preliminary Urine clean catch - Urine cornelius top Culture in progress. Discharge Plan Discharge Anticipated Discharge Date/Time: 08/22/22 15:01 Patient Disposition: Home, Self-Care Discharge Diagnosis: Benign positional vertigo Referrals: Saurabh Rodriguez PA [Primary Care Provider] - 1 Week Discharge Medications: New cefuroxime axetil 500 mg Tablet 500 mg PO Q12H Qty: 60 0RF Continued buspirone 5 mg tablet 5 mg PO DAILY atorvastatin 20 mg tablet 20 mg PO DAILY quetiapine 100 mg tablet 100 mg PO BEDTIME meloxicam 7.5 mg tablet 15 mg PO DAILY famotidine 20 mg tablet 20 mg PO DAILY trazodone 100 mg tablet 200 mg PO BEDTIME meclizine 25 mg tablet 25 mg PO BID PRN (Reason: Dizziness) ondansetron 4 mg tablet,disintegrating 2 mg PO Q6-8H PRN (Reason: Nausea) bupropion HCl 200 mg tablet sustained-release 12 hr 200 mg PO DAILY clonazepam 0.5 mg tablet 0.5 mg PO BID PRN (Reason: Anxiety) Discharge Orders: Discharge Order (Routine); Ordered 08/22/22 Ordered By: Julian Holloway Diet: Advance to usual diet Activity on Discharge: As tolerated Stand Alone Forms: Patient Portal Discharge page Care Plan Goals: Resume all previous meds as taken before the hospitalization Health Concerns: Complete course of Ceftin 500 mg twice daily for 7 days Plan of Treatment: Follow-up with PCP in 2-3 weeks Assessment: See discharge summary
== END 2022-08-22 15:14 | disposition home or self-care (01) ==
LOC: HO.ED 14:33 → HO.EDOVER 15:19 → HO.IMC 17:43
PROVIDERS: Registered Nurse Emergency; Admitting Provider Hospitalist; Emergency Provider Emergency Medicine; PCP Physician Assistant; Visit Provider Hospitalist
DX: H81.10 Benign paroxysmal vertigo, unspecified ear (principal); R82.90 Unspecified abnormal findings in urine; R11.0 Nausea; R61 Generalized hyperhidrosis
CPT/HCPCS: 36415; 70450; 71046; 80053; 81001; 81003; 82272; 83605; 83690; 84484; 85025; 85610; 86850; 86900; 86901; 87040; 87086; 93005; 96360; 96361; 96372; 99222; 99285; J1650

== ENCOUNTER 2023-08-03 19:56 | Inpatient (IN) | payer MEDICARE, MEDICAID, SELFPAY ==
--- NOTE | 2023-08-03 | ECG_ITS ---
Test Reason : ALTERED MENTAL Blood Pressure : / mmHG Vent. Rate : 084 BPM Atrial Rate : 084 BPM P-R Int : 184 ms QRS Dur : 104 ms QT Int : 416 ms P-R-T Axes : 031 006 048 degrees QTc Int : 491 ms Normal sinus rhythm Prolonged QT Abnormal ECG When compared with ECG of 21-AUG-2022 11:45, QT has lengthened Referred By: Generic ED Physician Electronically Signed By:KAYLA SCHAFFER MD
[2023-08-03 19:59] VITALS: BP 123/78; PULSE 102; O2SAT 97
[2023-08-03 20:09] VITALS: BP 122/73; PULSE 94; RESP 16; O2SAT 99; BMI 24.8
[2023-08-03 21:32] LABS: MANUAL DIFF FLAG NO
[2023-08-03 21:34] LABS: Basophils Percent Auto 0.7 % (0-2); Eosinophils Absolute Auto 0.2 X10*3/uL (0.0-0.4); Eosinophils Percent Auto 3.8 % (0-4); Hematocrit 31.9 % (37.0-47.0); Hemoglobin 10.9 g/dl (12.0-16.0); Imm Gran Abs Auto 0.01 X10*3/uL (0.00-0.03); Imm Gran Pct Auto 0.2 % (0.0-0.4); Lymphocytes Absolute Auto 1.4 X10*3/uL (1.2-4.9); Mean Corpuscular HGB Conc 34.2 g/dl (31.0-35.0); Mean Corpuscular Hemoglobin 31.4 pg (27.0-33.0); Mean Corpuscular Volume 91.9 fL (80.0-98.0); Mean Platelet Volume 10.4 fL (9.4-12.3); Monocytes Absolute Auto 0.3 X10*3/uL (0.1-1.2); Monocytes Percent Auto 5.9 % (2-11); Neutrophils Absolute Auto 3.6 x10*3/uL (2.0-8.3); Neutrophils Percent Auto 64.4 % (45-73); Platelet Count 254 X10*3/uL (160-400); Red Blood Count 3.47 X10*6/uL (4.20-5.50); Red Cell Distribution Width 13.9 % (11.0-16.0); White Blood Count 5.6 X10*3/uL (4.8-10.8)
[2023-08-03 22:04] LABS: Anion Gap 19 (12-20); Blood Urea Nitrogen 54 mg/dL (9-16); Calcium 9.4 mg/dL (8.4-10.2); Carbon Dioxide 18 mmol/L (22-29); Chloride 103 mmol/L (96-108); Creatinine Clr Calc Pharmacy 13.5; Estimated Glomerular Filt Rate 13; Ethanol < 10 mg/dL; Glucose Random 87 mg/dL (60-115); Potassium 3.2 mmol/L (3.3-5.1); Sodium 137 mmol/L (135-145)
[2023-08-03 22:34] LABS: Appearance Urine Clear; Color Urine Yellow; Glucose Urine UA Negative (Negative); Leukocyte Esterase Urine Small (1+) (Negative); Nitrite Urine Negative (Negative); PH 5.5 (5.0-9.0); UMIC TRIGGER UACC YES; Urine Blood Negative (Negative); Urine Ketones Negative (Negative); Urine Protein Negative (Neg-Trace)
[2023-08-03 22:40] LABS: Bacteria Urine None Seen (None Seen); Hyaline Casts Urine 0-2 /LPF (0-2); RBC Urine 0-2 /HPF (0-2); UACC Culture Trigger YES
[2023-08-03 23:02] VITALS: BP 113/58; PULSE 82; RESP 20; TEMP 36.6; O2SAT 96
--- NOTE | 2023-08-03 23:06 | ED_ITS ---
HPI - Altered Mental Status General Chief Complaint: Altered Mental Status Stated Complaint: AMS, confused, not making sense per family Time Seen by Provider: 08/03/23 21:04 Source: patient, family and EMS Mode of arrival: EMS Limitations: altered mental status History of Present Illness ED Provider: Dr. Josie Cox HPI narrative: Patient comes to the emergency room from home via ambulance. According to EMS, patient lives by herself. The family reported that they have been trying to get in touch with her all day long, patient not answering the phone. Finally, they were able to get to patient's house and broke and. Patient found an empty bottle of Zquil. Patient states that she has been having trouble sleeping. Patient states that the whole bottle was full, drank the whole bottle. Patient denies SI or HI, patient was trying to sleep and rest. Patient denies any recent illnesses, no trauma, no falls. Related Data Home Medications ?Medication ?Instructions ?Recorded ?Confirmed atorvastatin 20 mg tablet 20 mg PO DAILY 08/21/22 08/21/22 bupropion HCl 200 mg tablet,12 hr 200 mg PO DAILY 08/21/22 08/21/22 sustained-release buspirone 5 mg tablet 5 mg PO DAILY 08/21/22 08/21/22 clonazepam 0.5 mg tablet 0.5 mg PO BID PRN Anxiety 08/21/22 08/21/22 famotidine 20 mg tablet 20 mg PO DAILY 08/21/22 08/21/22 meclizine 25 mg tablet 25 mg PO BID PRN Dizziness 08/21/22 08/21/22 meloxicam 7.5 mg tablet 15 mg PO DAILY 08/21/22 08/21/22 ondansetron 4 mg disintegrating 2 mg PO Q6-8H PRN Nausea 08/21/22 08/21/22 tablet quetiapine 100 mg tablet 100 mg PO BEDTIME 08/21/22 08/21/22 trazodone 100 mg tablet 200 mg PO BEDTIME 08/21/22 08/21/22 Previous Rx's ?Medication ?Instructions ?Recorded cefuroxime axetil 500 mg tablet 500 mg PO Q12H #60 tabs 08/22/22 Allergies Allergy/AdvReac Type Severity Reaction Status Date / Time No Known Allergies Allergy Verified 08/03/23 20:12 Review of Systems 2 Review of Systems: Constitutional : No Weight loss, No Fever, No Chills, No Night Sweats, No Fatigue, No Malaise, family reports altered mental status. Patient states she feels a bit tired but otherwise has no complaints ENT/Mouth : No Hearing loss, No Ear Pain, No Nasal Congestion, No Sinus Pain, No Hoarseness, No sore throat, No Rhinorrhea, No Swallowing Difficulty Eyes: No Eye Pain, No Swelling, No Redness, No Foreign Body, No Discharge, No Vision Changes Cardiovascular : No Chest Pain, No SOB, No Dyspnea on Exertion, No Orthopnea, No Edema, No Palpitations Respiratory : No Cough, No Sputum, No Wheezing, No Smoke Exposure, No Dyspnea Gastrointestinal : No Nausea, No Vomiting, No Diarrhea, No Constipation, No abdominal Pain, No Hematochezia, No Melena Genitourinary : no irregular bleeding, No Dysuria, No Urinary Frequency, No Hematuria, No Urinary Incontinence, No Urgency, No Flank Pain, No Urinary Flow Changes, No Hesitancy Musculoskeletal : No joint pain, No Myalgias, No Joint Swelling Skin : No Skin Lesions, No rash Neuro : No Weakness, No Numbness, No Paresthesias, No Loss of Consciousness, No Dizziness, No Headache Psych : No Anxiety/Panic, No Depression, No SI/HI/AH/VH, No Social Issues, Heme/Lymph: No Bruising, No Bleeding,No Lymphadenopathy Endocrine : No Polyuria, No Polydipsia, No Temperature Intolerance [facility] Past Medical History Medical History FH: Alzheimers disease Social History Social History (System 01/14/23 @ 13:00 by Mary Barnett) Patient Tobacco Use Status: Never used Tobacco Smoked in Last 30 Days: No Use of substances other than those prescribed or required for medical reasons: No Advance Directives: No Advance Directives Information Provided: No Do you have a plan to hurt others: No Plan service: No Physical Exam ED Vital Signs: Vital Signs - 24 hr 08/03/23 20:09 08/03/23 23:02 Temperature 97.8 F Pulse Rate 94 82 Respiratory Rate 16 20 Blood Pressure 122/73 113/58 L Pulse Oximetry 99 96 Oxygen Delivery Method Room Air Room Air BMI result Body Mass Index 24.8 Const Other: Appearance: Alert. Oriented X3. No acute distress. Eyes: Pupils equal, round and reactive to light. ENT: Pharynx normal. Neck: Normal inspection. Neck supple. No lymph nodes noted. No crepitus CVS: Normal heart rate and rhythm. Pulses normal. Normal S1 and S2 Respiratory: No respiratory distress. Breath sounds normal. No Wheezing. No rales Abdomen: Soft and nontender. No rigidity. No distention. Skin: Skin warm and dry. Normal skin color. Normal skin turgor. Extremities: No lower extremity edema. No Lacerations. No Rash Neuro: Oriented X 3. No motor deficit. No sensory deficit. Moving all extremities. No slurred speech. CN 2 through 12 grossly intact Psych: calm, cooperative, normal affect Medications Administered Discontinued Medications Generic Name Dose Route Start Last Admin Trade Name Freq PRN Reason Stop Dose Admin Cefuroxime Axetil 250 mg 08/03/23 23:16 08/03/23 23:45 Cefuroxime Axetil 250 Mg Tablet PO 08/03/23 23:17 250 mg ONCE ONE Administration Sodium Chloride 2,000 mls @ 999 mls/hr 08/03/23 23:05 08/03/23 23:44 Ns IVCONT 08/04/23 01:05 999 mls/hr .Q2H1M ONE Administration Potassium Chloride 40 meq 08/03/23 23:18 08/03/23 23:45 Potassium Chloride Packet 20 Meq Packet PO 08/03/23 23:19 40 meq ONCE ONE Administration Medical Decision Making Medical Decision Making [facility] Narrative: -my interpretation of EKG: Sinus rhythm, heart rate 84, no ST segment depression or elevation, no T-wave inversion, QTC 491 -my interpretation of labs: Hematology at baseline, BUN 54, creatinine 3.53. Patient's creatinine baseline is less than 1.0 -patient receiving IV fluids, we will recheck creatinine. Patient states that she is starting to feel a bit better. -discussed with the patient and her family that if the creatinine does not improve after IV hydration, patient may need to stay in the ED, all agreeable with plan. -after IV fluids, patient's creatinine did improve but not as much as expected. Patient will benefit from admission for hydration. Differential Diagnosis Differential Diagnoses: The differential diagnosis associated with the presentation includes (MELINA, dehydration) Admission/Observation Consideration of admission/observation: Escalation of care including admission/observation considered Consult Healthcare Provider Management of the patient was discussed with: Hospitalist Lab Data MDM Lab Attestation statement: I reviewed the patient's lab results. 08/03/23 21:27 08/04/23 01:41 Labs: Lab Results 08/03/23 08/03/23 08/04/23 Range/Units 21:27 22:26 00:05 WBC 5.6 (4.8-10.8) X10*3/uL RBC 3.47 L (4.20-5.50) X10*6/uL Hgb 10.9 L (12.0-16.0) g/dl Hct 31.9 L (37.0-47.0) % MCV 91.9 (80.0-98.0) fL MCH 31.4 (27.0-33.0) pg MCHC 34.2 (31.0-35.0) g/dl RDW 13.9 (11.0-16.0) % Plt Count 254 D (160-400) X10*3/uL MPV 10.4 (9.4-12.3) fL Immature Gran % (Auto) 0.2 (0.0-0.4) % Neut % (Auto) 64.4 (45-73) % Lymph % (Auto) 25.0 (20-40) % [place] % (Auto) 5.9 (2-11) % Eos % (Auto) 3.8 (0-4) % Baso % (Auto) 0.7 (0-2) % Lymph # (Auto) 1.4 (1.2-4.9) X10*3/uL [place] # (Auto) 0.3 (0.1-1.2) X10*3/uL Eos # (Auto) 0.2 (0.0-0.4) X10*3/uL Baso # (Auto) 0.0 (0.0-0.2) X10*3/uL Abs Immat Gran (auto) 0.01 (0.00-0.03) X10*3/uL Absolute Neuts (auto) 3.6 (2.0-8.3) x10*3/uL Absolute Nucleated RBC 0.000 (0.0-0.012) X10*3/uL Nucleated RBC % (auto) 0.0 (0.0-0.2) /100WBC Sodium 137 (135-145) mmol/L Potassium 3.2 L (3.3-5.1) mmol/L Chloride 103 (96-108) mmol/L Carbon Dioxide 18 L (22-29) mmol/L Anion Gap 19 (12-20) BUN 54 H (9-16) mg/dL Creatinine 3.53 H (0.5-1.4) mg/dL Estim Creat Clear Calc 13.5 Estimated GFR 13 Random Glucose 87 (60-115) mg/dL Calcium 9.4 (8.4-10.2) mg/dL Total Bilirubin (0.0-1.0) mg/dL AST (5-31) U/L ALT (0-31) U/L Alkaline Phosphatase (39-117) U/L Total Protein (6.5-8.0) g/dL Albumin (3.5-5.0) g/dL Urine Color Yellow Urine Appearance Clear Urine pH 5.5 (5.0-9.0) Ur Specific [place] 1.010 (1.005-1.025) Urine Protein Negative (Neg-Trace) mg/dL Urine Glucose (UA) Negative (Negative) mg/dL Urine Ketones Negative (Negative) mg/dL Urine Blood Negative (Negative) Urine Nitrite Negative (Negative) Ur Leukocyte Esterase Small (1+) H (Negative) Urine RBC 0-2 (0-2) /HPF Urine WBC 11-20 H (0-5) /HPF Ur Squamous Epith Cells 3-5 (0-2) /HPF Urine Bacteria None Seen (None Seen) Hyaline Casts 0-2 (0-2) /LPF Salicylates < 5.0 L (15-30) mg/dL Acetaminophen < 3 (<30) mcg/mL Ethyl Alcohol < 10 mg/dL 08/04/23 Range/Units 01:41 WBC (4.8-10.8) X10*3/uL RBC (4.20-5.50) X10*6/uL Hgb (12.0-16.0) g/dl Hct (37.0-47.0) % MCV (80.0-98.0) fL MCH (27.0-33.0) pg MCHC (31.0-35.0) g/dl RDW (11.0-16.0) % Plt Count (160-400) X10*3/uL MPV (9.4-12.3) fL Immature Gran % (Auto) (0.0-0.4) % Neut % (Auto) (45-73) % Lymph % (Auto) (20-40) % [place] % (Auto) (2-11) % Eos % (Auto) (0-4) % Baso % (Auto) (0-2) % Lymph # (Auto) (1.2-4.9) X10*3/uL [place] # (Auto) (0.1-1.2) X10*3/uL Eos # (Auto) (0.0-0.4) X10*3/uL Baso # (Auto) (0.0-0.2) X10*3/uL Abs Immat Gran (auto) (0.00-0.03) X10*3/uL Absolute Neuts (auto) (2.0-8.3) x10*3/uL Absolute Nucleated RBC (0.0-0.012) X10*3/uL Nucleated RBC % (auto) (0.0-0.2) /100WBC Sodium 137 (135-145) mmol/L Potassium 4.1 D (3.3-5.1) mmol/L Chloride 109 H (96-108) mmol/L Carbon Dioxide 19 L (22-29) mmol/L Anion Gap 13 (12-20) BUN 49 H (9-16) mg/dL Creatinine 2.93 H (0.5-1.4) mg/dL Estim Creat Clear Calc 16.2 Estimated GFR 16 Random Glucose 95 (60-115) mg/dL Calcium 8.4 D (8.4-10.2) mg/dL Total Bilirubin 0.3 (0.0-1.0) mg/dL AST 34 H (5-31) U/L ALT 23 (0-31) U/L Alkaline Phosphatase 109 (39-117) U/L Total Protein 6.0 L (6.5-8.0) g/dL Albumin 3.5 (3.5-5.0) g/dL Urine Color Urine Appearance Urine pH (5.0-9.0) Ur Specific [place] (1.005-1.025) Urine Protein (Neg-Trace) mg/dL Urine Glucose (UA) (Negative) mg/dL Urine Ketones (Negative) mg/dL Urine Blood (Negative) Urine Nitrite (Negative) Ur Leukocyte Esterase (Negative) Urine RBC (0-2) /HPF Urine WBC (0-5) /HPF Ur Squamous Epith Cells (0-2) /HPF Urine Bacteria (None Seen) Hyaline Casts (0-2) /LPF Salicylates < 5.0 L (15-30) mg/dL Acetaminophen < 3 (<30) mcg/mL Ethyl Alcohol mg/dL Critical Care Time Critical Care Time Critical Care Time: Yes Total Critical Care Time: 60 Attestation: I have personally provided critical care time. Time includes review of lab data, radiology results, discussion with consultants, and monitoring for potential decompensation. Intervention performed as documented. Discharge Plan Discharge Clinical Impression: MELINA (acute kidney injury) Patient Disposition: Admitted As Inpatient Prescriptions: No Action buspirone 5 mg tablet 5 mg PO DAILY atorvastatin 20 mg tablet 20 mg PO DAILY quetiapine 100 mg tablet 100 mg PO BEDTIME meloxicam 7.5 mg tablet 15 mg PO DAILY famotidine 20 mg tablet 20 mg PO DAILY trazodone 100 mg tablet 200 mg PO BEDTIME meclizine 25 mg tablet 25 mg PO BID PRN (Reason: Dizziness) ondansetron 4 mg tablet,disintegrating 2 mg PO Q6-8H PRN (Reason: Nausea) bupropion HCl 200 mg tablet sustained-release 12 hr 200 mg PO DAILY clonazepam 0.5 mg tablet 0.5 mg PO BID PRN (Reason: Anxiety) cefuroxime axetil 500 mg Tablet 500 mg PO Q12H Qty: 60 0RF Print Language: Divehi
[2023-08-03] MEDS: 0.9 % Sodium Chloride 2,000 ML 999 ML IVCONT (23:44)
[2023-08-03] MEDS: Potassium Chloride Packet 20 MEQ PACKET 40 MEQ PO (23:45)
[2023-08-03] MEDS: cefuroxime axetiL 250 MG TABLET PO (23:45)
[2023-08-04] VITALS (12 sets, daily range): BP systolic 86–106; BP diastolic 44–62; PULSE 55–75; RESP 14–20; TEMP 36.8–37.1; O2SAT 93–100; BMI 23.9
[2023-08-04 00:31] LABS: Acetaminophen LAB < 3 mcg/mL (<30); Salicylate < 5.0 mg/dL (15-30)
[2023-08-04 02:05] LABS: Acetaminophen LAB < 3 mcg/mL (<30); Alanine Aminotransferase 23 U/L (0-31); Albumin Level 3.5 g/dL (3.5-5.0); Alkaline Phosphatase 109 U/L (39-117); Anion Gap 13 (12-20); Aspartate Amino Transferase 34 U/L (5-31); Bilirubin Total 0.3 mg/dL (0.0-1.0); Blood Urea Nitrogen 49 mg/dL (9-16); Calcium 8.4 mg/dL (8.4-10.2); Carbon Dioxide 19 mmol/L (22-29); Chloride 109 mmol/L (96-108); Creatinine Clr Calc Pharmacy 16.2; Estimated Glomerular Filt Rate 16; Glucose Random 95 mg/dL (60-115); Potassium 4.1 mmol/L (3.3-5.1); Salicylate < 5.0 mg/dL (15-30); Sodium 137 mmol/L (135-145)
[2023-08-04] MEDS: clonazePAM 0.5 MG TABLET PO (02:37)
[2023-08-04] MEDS: 0.9 % Sodium Chloride 1,000 ML 100 ML IVCONT ×3 (05:26→23:31)
--- NOTE | 2023-08-04 05:36 | P.HPHOSP_ITS ---
History of Present Illness Date of Service: 08/04/23 Attending physician on admission: Dashawn Sheehan Chief Complaint: Somnolence HPI provided by patient's daughter over the phone. Dayan Fontanez is a 68 years old woman with past medical history significant for essential hypertension, depression, anxiety and multiple psychiatric medications including clonazepam, trazodone, buspirone and Seroquel was brought to the emergency department by EMS from home after her family was unable to contact her yesterday during the morning. The patient lives alone. Family gain access to her home and noted that the patient was very confused and somnolent. It was noted that pt an empty bottle of Zzzquil. Patient's daughter mentioned that the patient has been having trouble sleeping and she did not intentionally drank it to herself. Last Friday, the patient was evaluated by her primary doctor and was found to have low blood pressure (daughter thinks was around 90/60) and her lisinopril/HCTZ was discontinued and changed to lisinopril alone 20 mg PO daily. Patient also take meloxicam daily. Patient is now alert and able to answer simple questions. She was not very specific as to why a Zzzquil bottle was found empty next to her and is not sure why she has in the hospital. Patient denied any headache, chest pain, shortness on breath, abdominal pain, nausea, vomiting or diarrhea. In the ED, she was found to have stable vital signs. Blood workup showed no leukocytosis. Hemoglobin is 10.9 which is at baseline. Platelets are normal. Creatinine initially came back to 3.53 and most recent was dropped to 2.93. Her potassium was initially found to be low at 3.2, there is metabolic acidosis with a bicarb of 19. LFTs are essentially unremarkable. UA showed small leukocyte steroids and increased WBC 11-20. Salicylates less than 5 < 0.5 acetaminophen < 3 and alcohol level < 10. Head CT scan is negative. CXR showed no acute cardiopulmonary disease. ECG showed normal sinus rhythmm HR 84 bpm. QT is prolonged, 491 ms. ED tx: NS 2 L bolus, Ceftin 250 mg PO, Klor-Con 40 mEq PO and clonazepam 0.5 mg PO X1. Review of Systems 2 Review of Systems: Yes Unobtainable due to mental status [facility] Medical History (Updated 08/04/23 @ 07:08 by Dashawn Sheehan MD) Hyperlipidemia Essential hypertension Anxiety Depression FH: Alzheimers disease Social History (System 01/14/23 @ 13:00 by Mary Barnett) Patient Tobacco Use Status: Never used Tobacco Smoked in Last 30 Days: No Use of substances other than those prescribed or required for medical reasons: No Advance Directives: No Advance Directives Information Provided: No Do you have a plan to hurt others: No Plan service: No Meds Allergies Allergy/AdvReac Type Severity Reaction Status Date / Time No Known Allergies Allergy Verified 08/03/23 20:12 Active Medications: Current Medications Acetaminophen (Acetaminophen Supp 325 Mg Supp.Rect) 975 mg AL Q6H PRN PRN Reason: mild pain, headache or fever Heparin Sodium (Porcine) (Heparin Sodium,Porcine 5,000 Unit/Ml Vial) 5,000 unit SUBCUT Q8H TAE Sodium Chloride (Ns) 1,000 mls @ 100 mls/hr IVCONT .Q10H TAE Last Admin: 08/04/23 05:26 Dose: 100 mls/hr Sodium Chloride (0.9 % Sodium Chloride Flush 3 Ml Syringe) 3 ml IVFLUSH QSHIFT [facility] Home Medications ?Medication ?Instructions ?Recorded ?Confirmed ?Last Taken ?Type atorvastatin 20 mg tablet 20 mg PO DAILY 08/21/22 08/21/22 Unknown History bupropion HCl 200 mg tablet,12 hr 200 mg PO DAILY 08/21/22 08/21/22 Unknown History sustained-release buspirone 5 mg tablet 5 mg PO DAILY 08/21/22 08/21/22 Unknown History clonazepam 0.5 mg tablet 0.5 mg PO BID PRN Anxiety 08/21/22 08/21/22 Unknown History famotidine 20 mg tablet 20 mg PO DAILY 08/21/22 08/21/22 Unknown History meclizine 25 mg tablet 25 mg PO BID PRN Dizziness 08/21/22 08/21/22 Unknown History meloxicam 7.5 mg tablet 15 mg PO DAILY 08/21/22 08/21/22 Unknown History ondansetron 4 mg disintegrating 2 mg PO Q6-8H PRN Nausea 08/21/22 08/21/22 Unknown History tablet quetiapine 100 mg tablet 100 mg PO BEDTIME 08/21/22 08/21/22 Unknown History trazodone 100 mg tablet 200 mg PO BEDTIME 08/21/22 08/21/22 Unknown History Physical Exam 2 Vital Signs and Narrative: Vital Signs: Last Vital Signs Temp 98.2 F 08/04/23 03:26 Pulse 69 08/04/23 03:26 Resp 16 08/04/23 03:26 BP 101/58 L 08/04/23 03:26 Pulse Ox 97 08/04/23 03:26 O2 Del Method Room Air 08/03/23 23:02 BMI result Body Mass Index 24.8 Constitutional - Awake and Alert, No apparent distress. Confused at time. Afebrile. HEENT- Pupils equally round. Normal sclerae. Dry oral mucosa. Heart - S1S2, RRR. Lungs - Normal lung expansion, Normal respiratory effort, No respiratory distress, CTA bilaterally Abdomen - NT / ND; +BS; No rebound or guarding Extremities - no calf tenderness bilaterally, no swelling Musculoskeletal - Normal inspection, normal ROM Skin - Warm/Dry Neurological - Alert & oriented only to person and place. No facial droop. Confused. No focal weakness grossly noted. Normal speech. No agitation. Psychological - Appropriate affect Results Labs 08/03/23 21:27 08/04/23 01:41 Labs: Laboratory Results - last 24 hr 08/03/23 08/03/23 08/04/23 21:27 22:26 00:05 MCV 91.9 MCH 31.4 MCHC 34.2 RDW 13.9 Plt Count 254 D MPV 10.4 Immature Gran % (Auto) 0.2 Neut % (Auto) 64.4 Lymph % (Auto) 25.0 [place] % (Auto) 5.9 Eos % (Auto) 3.8 Baso % (Auto) 0.7 Lymph # (Auto) 1.4 [place] # (Auto) 0.3 Eos # (Auto) 0.2 Baso # (Auto) 0.0 Abs Immat Gran (auto) 0.01 Absolute Neuts (auto) 3.6 Absolute Nucleated RBC 0.000 Nucleated RBC % (auto) 0.0 Anion Gap 19 Estim Creat Clear Calc 13.5 Estimated GFR 13 Random Glucose 87 Calcium 9.4 Total Bilirubin AST ALT Alkaline Phosphatase Total Protein Albumin Urine Color Yellow Urine Appearance Clear Urine pH 5.5 Ur Specific [place] 1.010 Urine Protein Negative Urine Glucose (UA) Negative Urine Ketones Negative Urine Blood Negative Urine Nitrite Negative Ur Leukocyte Esterase Small (1+) H Urine RBC 0-2 Urine WBC 11-20 H Ur Squamous Epith Cells 3-5 Urine Bacteria None Seen Hyaline Casts 0-2 Salicylates < 5.0 L Acetaminophen < 3 Ethyl Alcohol < 10 08/04/23 01:41 MCV MCH MCHC RDW Plt Count MPV Immature Gran % (Auto) Neut % (Auto) Lymph % (Auto) [place] % (Auto) Eos % (Auto) Baso % (Auto) Lymph # (Auto) [place] # (Auto) Eos # (Auto) Baso # (Auto) Abs Immat Gran (auto) Absolute Neuts (auto) Absolute Nucleated RBC Nucleated RBC % (auto) Anion Gap 13 Estim Creat Clear Calc 16.2 Estimated GFR 16 Random Glucose 95 Calcium 8.4 D Total Bilirubin 0.3 AST 34 H ALT 23 Alkaline Phosphatase 109 Total Protein 6.0 L Albumin 3.5 Urine Color Urine Appearance Urine pH Ur Specific [place] Urine Protein Urine Glucose (UA) Urine Ketones Urine Blood Urine Nitrite Ur Leukocyte Esterase Urine RBC Urine WBC Ur Squamous Epith Cells Urine Bacteria Hyaline Casts Salicylates < 5.0 L Acetaminophen < 3 Ethyl Alcohol Assessment and Plan (1) MELINA (acute kidney injury): Status: Acute Plan Dayan Fontanez is a 68 y/o woman admitted with: * Acute kidney injury associated with normal anion gap metabolic acidosis, likely related to hydrochlorothiazide, lisinopril and meloxicam use. Found to have hypotension last Friday (around 90/60, according to daughter) by her PCP three days ago. Admit to hospitalist service. Telemetry. Continue IV fluids. Hold hydrochlorothiazide, lisinopril and meloxicam. Continue to monitor renal function and bicarb. Nephrology consult. * Hypokalemia, likely secondary to acidosis, resolved. It was repleted in ED. Continue to monitor. * Acute encephalopathy likely secondary to multiple psych medications (clonazepam, trazodone and seroquel) + recent unintentional overdose of Zzzquil in the setting of MELINA; mental status is not completely back to baseline. Hold psych meds for now except clonazepam to avoid withdrawal symptoms. Fall and aspiration precautions. * Essential hypertension. Lisinopril on hold due to MELINA. Blood pressure is normal at this time. Continue to monitor. * ? Urinary tract infection. UC obtained -will follow results. * Hyperlipidemia. Continue statin. * GERD. Continue PPI. Medication reconciliation by pharmacy is still pending. Code status: Full DVT prophylaxis: Heparin Patient will need hospitalization for at least 2 midnights for MELINA and acute encephalopathy treatment with IV fluids, close monitoring of vital signs and blood workup. She will also need evaluation by subspecialty. Quality Stroke Does the patient have a stroke diagnosis?: No VTE Prior VTE?: No VTE Risk Level:: Medical - moderate - high VTE Device Contraindication: Treatment Not Indicated VTE Drug Contraindication: N/A - Med Ordered
--- NOTE | 2023-08-04 06:14 | PC.NURSE ---
Note compiled post-conversation: Poison Control contacted regarding ingestion of Z-Quil. Contact requested Aceta/Salyc levels, along with existing labs already ordered, with 3-hour repeat draws and mnitoring for agitation/other adverse affects. On return call from PC, this RN confirmed n adverse affects noted in pt.
--- NOTE | 2023-08-04 08:36 | PC.NURSE ---
pt BP consistently low x3 - 91/29, 96/34 and 86/54 - MD Humphrey made aware, awaiting orders
--- NOTE | 2023-08-04 08:58 | PC.NURSE ---
pt alert to self, place and time, pt pleasant yet altered.
[2023-08-04 09:25] LABS: MANUAL DIFF FLAG NO
[2023-08-04 09:26] LABS: Basophils Absolute Auto 0.1 X10*3/uL (0.0-0.2); Basophils Percent Auto 1.4 % (0-2); Eosinophils Absolute Auto 0.3 X10*3/uL (0.0-0.4); Eosinophils Percent Auto 4.6 % (0-4); Hematocrit 29.5 % (37.0-47.0); Hemoglobin 9.7 g/dl (12.0-16.0); Imm Gran Abs Auto 0.02 X10*3/uL (0.00-0.03); Imm Gran Pct Auto 0.3 % (0.0-0.4); Lymphocytes Absolute Auto 1.4 X10*3/uL (1.2-4.9); Lymphocytes Percent Auto 23.9 % (20-40); Mean Corpuscular HGB Conc 32.9 g/dl (31.0-35.0); Mean Corpuscular Hemoglobin 31.1 pg (27.0-33.0); Mean Corpuscular Volume 94.6 fL (80.0-98.0); Mean Platelet Volume 11.1 fL (9.4-12.3); Monocytes Absolute Auto 0.5 X10*3/uL (0.1-1.2); Monocytes Percent Auto 8.7 % (2-11); Neutrophils Absolute Auto 3.6 x10*3/uL (2.0-8.3); Neutrophils Percent Auto 61.1 % (45-73); Platelet Count 235 X10*3/uL (160-400); Red Blood Count 3.12 X10*6/uL (4.20-5.50); Red Cell Distribution Width 14.5 % (11.0-16.0); White Blood Count 5.9 X10*3/uL (4.8-10.8)
[2023-08-04] MEDS: Heparin Sodium,Porcine 5,000 UNIT/ML VIAL 5000 UNIT SUBCUT ×2 (09:27→17:29)
[2023-08-04] MEDS: Albumin Human 25 % 100 ML IV ×3 (09:27→21:43)
[2023-08-04 09:39] LABS: Anion Gap 12 (12-20); Blood Urea Nitrogen 40 mg/dL (9-16); Calcium 8.4 mg/dL (8.4-10.2); Carbon Dioxide 19 mmol/L (22-29); Chloride 113 mmol/L (96-108); Creatinine Clr Calc Pharmacy 21.4; Estimated Glomerular Filt Rate 22; Glucose Random 92 mg/dL (60-115); Magnesium 2.1 mg/dL (1.6-2.6); Potassium 4.3 mmol/L (3.3-5.1); Sodium 140 mmol/L (135-145)
--- NOTE | 2023-08-04 11:07 | PHA.MEDREC ---
Pharmacy Consult ? Medication Reconciliation Pharmacy has completed the medication reconciliation. spoke with patients daughter at bedside and confirmed patient medications. She confirmed she takes meclizine once daily and that she did start lisinopril 20mg daily (and stopped Lisinopril-HCTZ).
--- NOTE | 2023-08-04 11:46 | MHC.CM.PN ---
CM MET WITH DAUGHTER/CAREGIVER, MAGY [phone], AT BEDSIDE PT LIVES ALONE AND HAS 40 [employer] CUT[employer] HOURS PER WEEK, ALTHOUGH MAGY REPORTS SHE IS THERE MUCH MORE THAN THAT PT HAS A WALKER THAT SHE REFUSES TO USE MAGY SAYS PT HAS A HCP NAMING HER THE AGENT, COPY REQUESTED PCP: LITA SAXENA IMM DELIVERED DCP: HOME [employer] [employer] DAUGHTER TO TRANSPORT
--- NOTE | 2023-08-04 12:50 | PM.CNNEP ---
History of Present Illness Reason for Consult Consult date: 08/05/23 Reason for consult: MELINA Chief Complaint Chief complaint: Acute Kidney Injury History of Present Illness Narrative: 68 years old woman with a history significant for essential hypertension, depression, anxiety and multiple psychiatric medications including clonazepam, trazodone, buspirone and Seroquel was brought to the emergency department by EMS from home after her family was unable to contact her yesterday during the morning. The patient lives alone. Family gain access to her home and noted that the patient was very confused and somnolent. It was noted that pt an empty bottle of Zzzquil. Patient's daughter mentioned that the patient has been having trouble sleeping and she did not intentionally drank it to herself. Last Friday, the patient was evaluated by her primary doctor and was found to have low blood pressure (daughter thinks was around 90/60) and her lisinopril/HCTZ was discontinued and changed to lisinopril alone 20 mg PO daily. Patient also take meloxicam daily. Patient is now alert and able to answer simple questions. She was not very specific as to why a Nyquil bottle was found empty next to her and is not sure why she has in the hospital. Patient denied any headache, chest pain, shortness on breath, abdominal pain, nausea, vomiting or diarrhea. Daughter was at bedside Review of Systems Review of Systems Yes Unobtainable due to mental status PMFSH Past Medical History Medical History Hyperlipidemia Essential hypertension Anxiety Depression FH: Alzheimers disease Social History Social History Household Members: None Housing: Apartment Do you presently have visiting nurse or other home services: Yes Patient Tobacco Use Status: Never used Tobacco service: No Meds Allergies Allergy/AdvReac Type Severity Reaction Status Date / Time No Known Allergies Allergy Verified 08/03/23 20:12 Active Medications: Current Medications Acetaminophen (Acetaminophen Supp 325 Mg Supp.Rect) 975 mg NC Q6H PRN PRN Reason: mild pain, headache or fever Heparin Sodium (Porcine) (Heparin Sodium,Porcine 5,000 Unit/Ml Vial) 5,000 unit SUBCUT Q8H TAE Last Admin: 08/04/23 09:27 Dose: 5,000 unit Sodium Chloride (Ns) 1,000 mls @ 100 mls/hr IVCONT .Q10H [facility] Last Admin: 08/04/23 05:26 Dose: 100 mls/hr Albumin Human (Kedbumin 25 %) 100 mls @ 100 mls/hr IV Q6H [facility] Stop: 08/05/23 03:59 Last Infusion: 08/04/23 10:36 Dose: Infused Sodium Chloride (0.9 % Sodium Chloride Flush 3 Ml Syringe) 3 ml IVFLUSH QSHIFT [facility] Last Admin: 08/04/23 08:46 Dose: Not Given Home Medications ?Medication ?Instructions ?Recorded ?Confirmed ?Last Taken ?Type atorvastatin 20 mg tablet 20 mg PO DAILY 08/21/22 08/04/23 Unknown History bupropion HCl 200 mg tablet,12 hr 200 mg PO DAILY 08/21/22 08/04/23 Unknown History sustained-release buspirone 5 mg tablet 5 mg PO BID 08/21/22 08/04/23 Unknown History clonazepam 0.5 mg tablet 0.5 mg PO BID PRN Anxiety 08/21/22 08/04/23 Unknown History famotidine 20 mg tablet 20 mg PO BID 08/21/22 08/04/23 Unknown History meclizine 25 mg tablet 25 mg PO DAILY Dizziness 08/21/22 08/04/23 Unknown History meloxicam 7.5 mg tablet 7.5 mg PO DAILY 08/21/22 08/04/23 Unknown History trazodone 100 mg tablet 100 mg PO BEDTIME 08/21/22 08/04/23 Unknown History bismuth subsalicylate 262 mg 1 - 2 tab PO DAILY PRN Heartburn 08/04/23 08/04/23 Unknown History chewable tablet (Pepto-Bismol) omeprazole 20 mg capsule,delayed 20 mg PO DAILY 08/04/23 08/04/23 Unknown History release quetiapine 50 mg tablet 50 mg PO BEDTIME 08/04/23 08/04/23 Unknown History Physical Exam Vital Signs: Last Vital Signs Temp 98.7 F 08/04/23 08:52 Pulse 67 08/04/23 08:34 Resp 16 08/04/23 08:34 BP 94/54 L 08/04/23 09:34 Pulse Ox 100 08/04/23 08:34 O2 Del Method Room Air 08/04/23 08:34 BMI result Body Mass Index 24.8 Const General: ill appearing Neck Neck: Yes supple Resp Auscultation: clear to auscultation bilaterally Cardio Palpation: no palpable S3 Heart sounds: no rubs GI Palpation (GI): Soft to palpation Auscultation: normal bowel sounds Neuro Motor exam (neuro): no asterixis Results Lab Results 08/04/23 09:01 08/05/23 08:04 Lab results: Chemistry 08/03/23 08/04/23 08/04/23 21:27 01:41 09:01 Sodium 137 137 140 Potassium 3.2 L 4.1 D 4.3 Carbon Dioxide 18 L 19 L 19 L BUN 54 H 49 H 40 H Creatinine 3.53 H 2.93 H 2.23 H Calcium 9.4 8.4 D 8.4 Phosphorus 3.0 Hematology 08/03/23 08/04/23 21:27 09:01 WBC 5.6 5.9 Hgb 10.9 L 9.7 L Plt Count 254 D 235 Urinalysis 08/03/23 22:26 Urine Color Yellow Urine Appearance Clear Urine pH 5.5 Ur Specific [place] 1.010 Urine Protein Negative Urine Glucose (UA) Negative Urine Ketones Negative Urine Blood Negative Urine Nitrite Negative Ur Leukocyte Esterase Small (1+) H Urine RBC 0-2 Urine WBC 11-20 H Ur Squamous Epith Cells 3-5 Hyaline Casts 0-2 Assessment and Plan (1) MELINA (acute kidney injury): Status: Acute Plan 68-year-old woman with MELINA. MELINA is most likely due to hypoperfusion from the combination for medications. No evidence of obstruction. No reason to believe she is any active glomerulonephritis. Recommendation Check urine for protein creatinine ratio Avoid hypotensive agents. Hold lisinopril. Discontinue NSAIDs Keep intake more than output Agree with IV hydration. Monitor urine output. Renal function is improving. No indication for dialysis she will follow along with the team. Procedures Date of Service Date of Service: 08/05/23
--- NOTE | 2023-08-04 18:04 | PM.EVENT ---
Event Note Date of Service: 08/04/23 Event Note: This patient is seen and examined. Seems like patient came to the hospital because of MELINA, borderline blood pressure. Please see details in H and P report. Physical exam-unchanged from H&P. and assessment and plan coordinated in APCs note, Agree with the plan in addition: As per H and P: Hold blood pressure medications, MELINA improving, continue hydration, mental status improving significantly UA: Has pyuria, patient denies any symptoms, urine culture pending. Will defer antibiotic until urine culture available Time Spent With Patient Time: Total time managing care of this patient today ____ minutes.
[2023-08-04] MEDS: busPIRone HCl 5 MG TABLET PO (21:43)
[2023-08-04] MEDS: Famotidine 20 MG TABLET PO (21:43)
[2023-08-04] MEDS: traZODone HCL 100 MG TABLET PO (21:43)
[2023-08-04] MEDS: QUEtiapine Fumarate 50 MG TABLET PO (21:43)
[2023-08-04] MEDS: Acetaminophen 325 MG TABLET 650 MG PO (23:24)
[2023-08-05] MEDS: Heparin Sodium,Porcine 5,000 UNIT/ML VIAL 5000 UNIT SUBCUT ×2 (02:00→08:46)
[2023-08-05 03:49] VITALS: BP 93/55; PULSE 64; RESP 20; TEMP 36.6; O2SAT 100
[2023-08-05] MEDS: Albumin Human 25 % 100 ML IV (03:52)
[2023-08-05] MEDS: Omeprazole 20 MG CAPSULE.DR PO (06:28)
[2023-08-05 07:59] VITALS: BP 106/60; PULSE 64; RESP 20; TEMP 36.7
[2023-08-05] MEDS: Atorvastatin Calcium 20 MG TABLET PO (08:46)
[2023-08-05] MEDS: Meclizine HCl 25 MG TABLET PO (08:46)
[2023-08-05] MEDS: Famotidine 20 MG TABLET PO (08:46)
[2023-08-05] MEDS: buPROPion HCl XL 150 MG TAB.ER.24H PO (08:46)
[2023-08-05] MEDS: busPIRone HCl 5 MG TABLET PO (08:46)
[2023-08-05 08:54] LABS: Anion Gap 15 (12-20); Blood Urea Nitrogen 26 mg/dL (9-16); Calcium 8.6 mg/dL (8.4-10.2); Carbon Dioxide 18 mmol/L (22-29); Chloride 116 mmol/L (96-108); Creatinine Clr Calc Pharmacy 37.3; Estimated Glomerular Filt Rate 41; Glucose Random 79 mg/dL (60-115); Potassium 4.4 mmol/L (3.3-5.1); Sodium 145 mmol/L (135-145)
[2023-08-05] MEDS: 0.9 % Sodium Chloride 1,000 ML 100 ML IVCONT (10:32)
--- NOTE | 2023-08-05 10:43 | PM.DS ---
DS: Providers Provider Date of Service: 08/05/23 Date of admission: 08/04/23 04:50 Primary care physician: ADIEL Amaya Consults: 08/04/23 06:45 Consult to Nephrology Routine Consulting Provider: [facility] Reason for consultation: MELINA, metabolic acidosis Has provider been notified: No DS: Diagnosis Discharge Diagnosis (1) MELINA (acute kidney injury): Status: Acute DS: Summary Hospital Course Hospital Course: History and physical as per admitting provider. Dayan Fontanez is a 68 years old woman with past medical history significant for essential hypertension, depression, anxiety and multiple psychiatric medications including clonazepam, trazodone, buspirone and Seroquel was brought to the emergency department by EMS from home after her family was unable to contact her yesterday during the morning. The patient lives alone. Family gain access to her home and noted that the patient was very confused and somnolent. It was noted that pt an empty bottle of Zzzquil. Patient's daughter mentioned that the patient has been having trouble sleeping and she did not intentionally drank it to herself. Last Friday, the patient was evaluated by her primary doctor and was found to have low blood pressure (daughter thinks was around 90/60) and her lisinopril/HCTZ was discontinued and changed to lisinopril alone 20 mg PO daily. Patient also take meloxicam daily. Patient is now alert and able to answer simple questions. She was not very specific as to why a Zzzquil bottle was found empty next to her and is not sure why she has in the hospital. Patient denied any headache, chest pain, shortness on breath, abdominal pain, nausea, vomiting or diarrhea.In the ED, she was found to have stable vital signs. Blood workup showed no leukocytosis. Hemoglobin is 10.9 which is at baseline. Platelets are normal. Creatinine initially came back to 3.53 and most recent was dropped to 2.93. Her potassium was initially found to be low at 3.2, there is metabolic acidosis with a bicarb of 19. LFTs are essentially unremarkable. UA showed small leukocyte steroids and increased WBC 11-20. Salicylates less than 5 < 0.5 acetaminophen < 3 and alcohol level < 10. Head CT scan is negative. CXR showed no acute cardiopulmonary disease. ECG showed normal sinus rhythmm HR 84 bpm. QT is prolonged, 491 ms. ED tx: NS 2 L bolus, Ceftin 250 mg PO, Klor-Con 40 mEq PO and clonazepam 0.5 mg PO X1. 68-year-old woman treated for acute encephalopathy secondary to accidental overdose of ZzzQuil. She has a baseline history of some confusion but no dementia. Her daughter is her GRATING MACHINE OPERATOR and helps her with her medications. Patient at this time is at her baseline mental status according to her daughter. She was also treated for MELINA which was likely secondary to antihypertensive medications including lisinopril which was stopped due to hypotension. MELINA has resolved after IV fluids. In terms of her blood pressure, lisinopril has been stopped and patient should not resume it unless at some point she requires it after seeing her primary care provider. There was a question of urinary tract infection but urine culture was negative. Discussed everything with patient's daughter and plan will be to discharge home, her if the patient are in agreement. GERD. Continue PPI Hyperlipidemia. Continue statin Time Attestation Discharge Coordination Time (in mins): 40 Quality: Safe Use of Opioids Does Pt have an Active Cancer Diagnosis on the Problem List?: No Quality: Stroke Does the patient have a stroke diagnosis?: No Physical Exam Vital Signs: Vital Signs: Last Vital Signs Temp 98.0 F 08/05/23 07:59 Pulse 64 08/05/23 07:59 Resp 20 08/05/23 07:59 BP 106/60 08/05/23 07:59 Pulse Ox 100 08/05/23 03:49 O2 Del Method Room Air 08/05/23 07:59 BMI result Body Mass Index 23.9 Appearing in no acute distress head is normocephalic atraumatic eyes pupils are PERRLA sclera is anicteric mouth throat mucous membranes are intact and moist neck is supple no lymphadenopathy, no JVD noted lung sounds are clear to auscultation heart regular rate rhythm, clear S1, S2 positive bowel sounds, abdomen is soft, nontender neuro patient is alert x3, no focal deficits DS: Data Data Completed and Pending Labs on day of discharge: Laboratory Results - last 24 hr 08/05/23 08:04 Sodium 145 Potassium 4.4 Chloride 116 H Carbon Dioxide 18 L Anion Gap 15 BUN 26 H Creatinine 1.28 Estim Creat Clear Calc 37.3 Estimated GFR 41 Random Glucose 79 Calcium 8.6 Discharge Plan Discharge Anticipated Discharge Date/Time: 08/05/23 10:29 Patient Disposition: Home, Self-Care Discharge Diagnosis: Toxic metabolic encephalopathy Accidental ingestion of sleep aid Acute kidney injury Hypokalemia Referrals: Saurabh Rodriguez PA [Primary Care Provider] - 1 Week Discharge Medications: Continued buspirone 5 mg tablet 5 mg PO BID atorvastatin 20 mg tablet 20 mg PO DAILY meloxicam 7.5 mg tablet 7.5 mg PO DAILY famotidine 20 mg tablet 20 mg PO BID trazodone 100 mg tablet 100 mg PO BEDTIME meclizine 25 mg tablet 25 mg PO DAILY bupropion HCl 200 mg tablet sustained-release 12 hr 200 mg PO DAILY clonazepam 0.5 mg tablet 0.5 mg PO BID PRN (Reason: Anxiety) bismuth subsalicylate [Pepto-Bismol] 262 mg Tablet,Chewable 1 - 2 tab PO DAILY PRN (Reason: Heartburn) Rx Instructions: do not exceed 16 tabs per 24 hrs omeprazole 20 mg capsule,delayed release(DR/EC) 20 mg PO DAILY quetiapine 50 mg tablet 50 mg PO BEDTIME Discontinued lisinopril 20 mg tablet 20 mg PO DAILY Discharge Orders: Discharge Order (Routine); Ordered 08/05/23 Ordered By: Jacqueline Han Diet: Advance to usual diet Activity on Discharge: As tolerated Stand Alone Forms: Patient Portal Discharge page Print Language: [place] Care Plan Goals: lisinopril has been stopped, can monitor blood pressures at home and report to primary care provider Health Concerns: Toxic metabolic encephalopathy Accidental ingestion of sleep aid Acute kidney injury Hypokalemia Plan of Treatment: Follow-up with primary care provider as needed Take all medications as prescribed Assessment: See discharge summary Discharge Date/Time: 08/05/23 13:30
[2023-08-05 11:24] VITALS: BP 129/60; PULSE 55; RESP 20; TEMP 36.7; O2SAT 100
--- NOTE | 2023-08-05 13:01 | P.PNNP_ITS ---
Subjective Subjective Date of Service: 08/13/23 Interval history: Events noted. Much more alert today. Appears comfortable Physical Exam 2 Vital Signs: Vital Signs: Last Vital Signs Temp 98.1 F 08/05/23 11:24 Pulse 55 08/05/23 11:24 Resp 20 08/05/23 11:24 BP 129/60 08/05/23 11:24 Pulse Ox 100 08/05/23 11:24 O2 Del Method Room Air 08/05/23 11:24 BMI result Body Mass Index 23.9 Const: General: cooperative Neck: Neck: Yes supple Resp: Auscultation: clear to auscultation bilaterally Cardio: Palpation: no palpable S3 Heart sounds: no rubs GI: Palpation (GI): Soft to palpation Auscultation: normal bowel sounds Neuro: Motor exam (neuro): no asterixis Objective Data Labs 08/04/23 09:01 08/05/23 08:04 Labs: Laboratory Results - last 24 hr 08/05/23 08:04 Sodium 145 Potassium 4.4 Chloride 116 H Carbon Dioxide 18 L Anion Gap 15 BUN 26 H Creatinine 1.28 Estim Creat Clear Calc 37.3 Estimated GFR 41 Random Glucose 79 Calcium 8.6 Microbiology Microbiology Results: Microbiology 08/04/23 00:05 Urine clean catch - Urine cornelius top Urine Culture - Final No growth. Procedures Date of Service Date of Service: 08/13/23 Assessment & Plan Assessment and plan (1) MELINA (acute kidney injury): Status: Resolved Plan 68-year-old woman with MELINA. MELINA is most likely due to hypoperfusion from the combination for medications. No evidence of obstruction. No reason to believe she is any active glomerulonephritis. Renal function is improving. Still with mild metabolic acidosis. Recommendation Keep intake more than the out Avoid hypotensive agents. Hold lisinopril. Discontinue NSAIDs Keep intake more than output Monitor urine output. Renal function is improving. Add oral sodium bicarbonate 650 mg p.o. b.i.d. for 2 days Time Spent With Patient Time: Total time managing care of this patient today ____ minutes. Progress Note: Quality Stroke Does the patient have a stroke diagnosis?: No
--- NOTE | 2023-08-05 13:28 | MHC.CM.PN ---
Pt is medically cleared for discharge home self-care, pts daughter to transport her home.
== END 2023-08-05 13:30 | disposition home or self-care (01) | DRG 917 ==
LOC: HO.ED 08-04 02:15 → HO.EDOVER 08-04 04:57 → HO.IMC 08-04 20:47
PROVIDERS: Admitting Provider Internal Medicine; Emergency Provider Emergency Medicine; PCP Physician Assistant; Visit Provider Nurse Practitioner Acute Care
DX: T45.0X1A Poisoning by antiallergic and antiemetic drugs, accidental (unintentional), initial encounter (principal); G92.8 Other toxic encephalopathy; N17.9 Acute kidney failure, unspecified; N39.0 Urinary tract infection, site not specified; E87.6 Hypokalemia; I10 Essential (primary) hypertension; E78.5 Hyperlipidemia, unspecified; K21.9 Gastro-esophageal reflux disease without esophagitis; F32.A Depression, unspecified; F41.9 Anxiety disorder, unspecified; T50.915A Adverse effect of multiple unspecified drugs, medicaments and biological substances, initial encounter; Z79.899 Other long term (current) drug therapy
CPT/HCPCS: 36415; 80048; 80053; 80143; 80179; 80307; 81001; 83735; 84100; 85025; 87086; 93005; 99285; J1644; P9047

== ENCOUNTER → 2023-08-03 20:55 | Outpatient (BNV) | payer MEDICARE, MEDICAID, SELFPAY | PROVIDERS: Admitting Provider Internal Medicine; Emergency Provider Emergency Medicine; Visit Provider Internal Medicine Cardiovascular Disease | DX: R94.31 Abnormal electrocardiogram [ECG] [EKG] (principal) | CPT/HCPCS: 93010 ==

== ENCOUNTER → 2023-08-04 04:50 | Outpatient (BNV) | payer MEDICARE, MEDICAID, SELFPAY | PROVIDERS: Admitting Provider Internal Medicine; Emergency Provider Emergency Medicine; PCP Physician Assistant; Visit Provider Internal Medicine Hypertension Specialist | DX: N17.9 Acute kidney failure, unspecified (principal) | CPT/HCPCS: 99222; 99232 ==

== ENCOUNTER → 2023-08-04 04:50 | Outpatient (BNV) | payer MEDICARE, MEDICAID, SELFPAY | PROVIDERS: Admitting Provider Internal Medicine; Emergency Provider Emergency Medicine; Visit Provider Internal Medicine | DX: N17.9 Acute kidney failure, unspecified (principal) | CPT/HCPCS: 99223; 99239; 99499 ==

== ENCOUNTER 2023-09-14 16:13 | Inpatient (IN) | payer MEDICARE, MEDICAID, SELFPAY ==
--- NOTE | 2023-09-14 | ECG_ITS ---
Test Reason : PROLONGED QT? Blood Pressure : / mmHG Vent. Rate : 075 BPM Atrial Rate : 075 BPM P-R Int : 164 ms QRS Dur : 092 ms QT Int : 424 ms P-R-T Axes : 027 005 024 degrees QTc Int : 473 ms Normal sinus rhythm Nonspecific T wave abnormality Prolonged QT Abnormal ECG When compared with ECG of 03-AUG-2023 20:55, Nonspecific T wave abnormality now evident in Anterior leads Referred By: Ramiro Cordero Electronically Signed By:KAYLA SCHAFFER MD
--- NOTE | ~2023-09-14 | CT_ITS ---
EXAMINATION: CT HEAD WITHOUT CONTRAST CLINICAL INFORMATION: Altered mental status COMPARISON: Head CT on 08/21/22 TECHNIQUE: Contiguous axial imaging was performed from the skull base to vertex without intravenous administration of contrast. This CT examination was performed using dose optimization techniques as appropriate, variously including the following: *Automated exposure control *Adjustment of mA and/or kV according to patient size (this includes techniques or standardized protocols for targeted exams where dose is matched to indication/reason for exam; i.e. extremities or head) *Use of iterative reconstruction technique DLP: 589 mGy-cm FINDINGS: There is no evidence of acute intracranial hemorrhage, acute large vessel infarct, midline shift or mass effect. The cornelius-white differentiation is preserved. There are patchy periventricular and subcortical white matter changes, which are nonspecific, but likely represent chronic microangiopathic change in a patient of this age. The ventricles and sulci are within normal limits in size and configuration. There is no evidence of hydrocephalus. There are no extraaxial collections. Osseous structures are intact. Paranasal sinuses and mastoid air cells are well aerated. CT/CT head/brain wo IV con IMPRESSION: No acute intracranial pathology.
[2023-09-14 16:35] VITALS: BP 131/60; PULSE 83; RESP 16; TEMP 37.2; O2SAT 99
[2023-09-14 17:11] VITALS: BP 131/60; PULSE 70; RESP 17; TEMP 36.6; O2SAT 98; BMI 26.5
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
--- NOTE | 2023-09-14 18:08 | ED_ITS ---
HPI - General Adult General Chief complaint: Psychiatric Symptoms Stated complaint: Crisis Time Seen by Provider: 09/14/23 17:17 Source: patient, RN notes reviewed, old records reviewed and bilingual interpreter Mode of arrival: ambulatory Limitations: language barrier History of Present Illness ED Provider: Gil HPI narrative: 68-year-old female presents for evaluation of agitation Patient interview using full time staff interpreter Patient states that she does not know why she was brought here She states that her daughter told her that she was going to the park and then brought her to the hospital instead The patient's daughter spoke to nursing staff and told him that the patient is showing signs of dementia with memory loss, general confusion, irritability and sometimes combativeness. Sometimes he is crying episodes last all day. The patient told nursing staff that she wants to kill herself She does not tell me this specifically but does not say no when I asked her directly The patient states that she does not want any visitors and does not want me talking to her daughter's She feels that her daughters are hurting her medications on her The patient denies any medical complaints and states ?I am healthy you will find nothing. ? She reports that she was at another hospital, [facility] less than 1 month ago for similar episodes Related Data Home Medications ?Medication ?Instructions ?Recorded ?Confirmed clonazepam 0.5 mg tablet 0.5 mg PO BID PRN Anxiety 08/21/22 09/14/23 amlodipine 5 mg tablet 5 mg PO DAILY 09/14/23 09/14/23 atorvastatin 20 mg tablet 20 mg PO DAILY 09/14/23 09/14/23 bupropion HCl 200 mg tablet,12 hr 200 mg PO QAM 09/14/23 09/14/23 sustained-release buspirone 5 mg tablet 5 mg PO BID 09/14/23 09/14/23 meclizine 25 mg tablet 25 mg PO BID PRN dizziness 09/14/23 09/14/23 omeprazole 20 mg capsule,delayed 20 mg PO DAILY 09/14/23 09/14/23 release quetiapine 50 mg tablet 50 mg PO BEDTIME 09/14/23 09/14/23 Allergies Allergy/AdvReac Type Severity Reaction Status Date / Time No Known Allergies Allergy Verified 09/14/23 17:49 Review of Systems 2 Constitutional: Constitutional: Denies body ache(s), Denies chills, Denies fever(s) and Denies headache(s) Eyes: Eyes: Denies blurry vision ENT: Denies vertigo, Denies dizziness, Denies dry mouth and Denies headache(s) Cardiovascular: Cardiovascular: Denies chest pain and Denies dyspnea Respiratory: Respiratory: Denies cough and Denies dyspnea Gastrointestinal: Gastrointestinal: Denies abdominal pain, Denies nausea and Denies vomiting Musculoskeletal: Musculoskeletal: Denies back pain Integumentary/Breasts: Skin/Breast: Denies rash Neurologic: Denies vertigo, Denies dizziness, Denies headache(s) and Reports memory loss Psychiatric: Psychiatric: Reports anxiety, Reports depression, Reports irritability, Reports anhedonia, Reports memory loss, Reports mood swings, Reports panic attacks, Reports paranoia and Reports suicidal ideation [facility] Past Medical History Medical History (Updated 09/14/23 @ 18:21 by Ramiro Cordero) Hyperlipidemia Essential hypertension Anxiety Depression FH: Alzheimers disease Social History Social History Household Members: None Housing: Apartment Do you presently have visiting nurse or other home services: Yes Patient Tobacco Use Status: Never used Tobacco Advance Directives: No Advance Directives Information Provided: No Do you have a plan to hurt others: No Plan service: No Physical Exam ED Vital Signs: Vital Signs - 24 hr 09/14/23 16:35 09/14/23 17:11 09/14/23 20:32 Temperature 98.9 F 97.8 F 98.1 F Pulse Rate 83 70 75 Respiratory Rate 16 17 18 Blood Pressure 131/60 131/60 122/60 Pulse Oximetry 99 98 100 Oxygen Delivery Method Room Air Room Air 09/15/23 05:46 09/15/23 14:11 Temperature 98.0 F 97.8 F Pulse Rate 75 74 Respiratory Rate 16 14 Blood Pressure 151/63 H 138/86 Pulse Oximetry 99 96 Oxygen Delivery Method Room Air Room Air BMI result Body Mass Index 26.5 Const General: healthy appearing, comfortable, alert and awake Nutritional Appearance: well nourished Orientation/consciousness: patient oriented x3 HENMT Head: Yes normocephalic and Yes atraumatic Eyes Eyelids: Yes eyelids normal Conjunctivae: conjunctivae normal Sclerae: sclerae normal Corneas: corneas normal Pupils: Equal, round and reactive pupils present EOM: EOMs intact bilaterally Neck Neck: Yes full ROM Resp Effort & Inspection: normal respiratory effort, able to speak in complete sentences and not labored Cardio Rate: regular rate Rhythm: regular rhythm GI Inspection: No distended Palpation (GI): Soft to palpation, not firm, nontender, no guarding and not rigid Skin General skin exam: elasticity normal Neuro General: patient oriented x3 Cranial nerves: Yes Equal, round and reactive pupils present and Yes Bilaterally intact EOM present Cognition (Neuro): normal cognition Extrem Other: Moving all extremities well without any obvious deformities Psych Appearance: grossly normal Speech and movement: Pressured speech present, Psychomotor agitation in speech present and Restless speech present Affect: Labile affect present and Sad affect present Attitude: cooperative Thought process: Racing thoughts present Thought content: Suicidality present and Depressive thoughts present Insight: Limited insight present (Psych) Judgement: Limited judgement present (Psych) Medications Administered Generic Name Dose Route Start Last Admin Trade Name Freq PRN Reason Stop Dose Admin Amlodipine Besylate 5 mg 09/15/23 09:00 09/15/23 08:25 Amlodipine Besylate 5 Mg Tablet PO 5 mg DAILY TAE Administration Protocol Atorvastatin Calcium 20 mg 09/15/23 09:00 09/15/23 08:24 Atorvastatin Calcium 20 Mg Tablet PO 20 mg DAILY TAE Administration Bupropion HCl 150 mg 09/15/23 09:00 09/15/23 08:25 Bupropion Hcl Xl 150 Mg Tab.Er.24h PO 150 mg DAILY TAE Administration Buspirone HCl 5 mg 09/14/23 21:00 09/15/23 08:25 Buspirone Hcl 5 Mg Tablet PO 5 mg BID TAE Administration Clonazepam 0.5 mg 09/14/23 20:16 09/15/23 08:25 Clonazepam 0.5 Mg Tablet PO 0.5 mg BID PRN Administration Anxiety Omeprazole 20 mg 09/15/23 06:30 09/15/23 05:52 Omeprazole 20 Mg Capsule.Dr PO 20 mg DAILY@0630 TAE Administration Quetiapine Fumarate 50 mg 09/14/23 21:00 09/14/23 20:55 Quetiapine Fumarate 50 Mg Tablet PO 50 mg BEDTIME TAE Administration Discontinued Medications Generic Name Dose Route Start Last Admin Trade Name Freq PRN Reason Stop Dose Admin Acetaminophen 975 mg 09/14/23 19:01 09/14/23 19:09 Acetaminophen 325 Mg Tablet PO 09/14/23 19:02 975 mg ONCE ONE Administration Lorazepam 2 mg 09/14/23 17:48 09/14/23 19:10 Lorazepam 1 Mg Tablet PO 09/14/23 17:49 2 mg ONCE ONE Administration Potassium Chloride 40 meq 09/14/23 19:38 09/14/23 20:07 Potassium Chloride Er 20 Meq Tab.Er.Prt PO 09/14/23 19:39 40 meq ONCE ONE Administration Medical Decision Making Medical Decision Making [facility] Narrative: 68-year-old female presents for evaluation of agitation. The patient denies any somatic complaints. She may be experiencing symptoms related to dementia but she does have some paranoia, agitation, anxiety restlessness. She also expressed suicidal thoughts. Plan for medical workup including labs, UA, CT scan in care team evaluation once cleared Patient is medically cleared EKG without any acute ischemic changes Differential Diagnosis Differential Diagnoses: The differential diagnosis associated with the presentation includes Depression Anxiety Dementia UTI Delirium Intracranial mass Lab Data [facility] Lab Attestation statement: I reviewed the patient's lab results. 09/14/23 18:14 09/15/23 14:06 Labs: Lab Results 09/14/23 09/15/23 09/15/23 Range/Units 18:14 12:00 14:06 WBC 7.1 (4.8-10.8) X10*3/uL RBC 3.79 L D (4.20-5.50) X10*6/uL Hgb 11.9 L D (12.0-16.0) g/dl Hct 36.2 L D (37.0-47.0) % MCV 95.5 (80.0-98.0) fL MCH 31.4 (27.0-33.0) pg MCHC 32.9 (31.0-35.0) g/dl RDW 14.1 (11.0-16.0) % Plt Count 206 (160-400) X10*3/uL MPV 11.3 (9.4-12.3) fL Immature Gran % (Auto) 0.4 (0.0-0.4) % Neut % (Auto) 69.1 (45-73) % Lymph % (Auto) 17.8 L (20-40) % Rich % (Auto) 9.3 (2-11) % Eos % (Auto) 2.1 (0-4) % Baso % (Auto) 1.3 (0-2) % Lymph # (Auto) 1.3 (1.2-4.9) X10*3/uL Rich # (Auto) 0.7 (0.1-1.2) X10*3/uL Eos # (Auto) 0.2 (0.0-0.4) X10*3/uL Baso # (Auto) 0.1 (0.0-0.2) X10*3/uL Abs Immat Gran (auto) 0.03 (0.00-0.03) X10*3/uL Absolute Neuts (auto) 4.9 (2.0-8.3) x10*3/uL Absolute Nucleated RBC 0.000 (0.0-0.012) X10*3/uL Nucleated RBC % (auto) 0.0 (0.0-0.2) /100WBC Sodium 144 144 (135-145) mmol/L Potassium 2.8 L* D 3.4 D (3.3-5.1) mmol/L Chloride 112 H 113 H (96-108) mmol/L Carbon Dioxide 18 L 19 L (22-29) mmol/L Anion Gap 17 15 (12-20) BUN 15 15 (9-16) mg/dL Creatinine 0.93 0.89 (0.5-1.4) mg/dL Estim Creat Clear Calc 50.7 53.0 Estimated GFR 60 > 60 Random Glucose 98 94 (60-115) mg/dL Calcium 9.4 D 8.9 (8.4-10.2) mg/dL Total Bilirubin 0.9 (0.0-1.0) mg/dL AST 39 H (5-31) U/L ALT 18 (0-31) U/L Alkaline Phosphatase 105 (39-117) U/L Total Protein 6.6 (6.5-8.0) g/dL Albumin 4.0 (3.5-5.0) g/dL Urine Color Yellow Urine Appearance Clear Urine pH 6.0 (5.0-9.0) Ur Specific [place] 1.010 (1.005-1.025) Urine Protein Negative (Neg-Trace) mg/dL Urine Glucose (UA) Negative (Negative) mg/dL Urine Ketones 15 (Negative) mg/dL Urine Blood Negative (Negative) Urine Nitrite Negative (Negative) Ur Leukocyte Esterase Moderate (2+) H (Negative) Urine RBC 0-2 (0-2) /HPF Urine WBC 6-10 H (0-5) /HPF Ur Squamous Epith Cells 6-10 (0-2) /HPF Urine Bacteria None Seen (None Seen) Hyaline Casts 0-2 (0-2) /LPF Salicylates < 5.0 L (15-30) mg/dL Urine Opiates Screen Not Detected (Not Detect) Ur Buprenorphine Scrn Not Detected (Not Detect) ng/mL Ur Oxycodone Screen Not Detected (Not Detect) ng/mL Urine Methadone Screen Not Detected (Not Detect) ng/mL Urine Fentanyl Screen Not Detected (Not Detect) Ur Barbiturates Screen Not Detected (Not Detect) Ur Phencyclidine Scrn Not Detected (Not Detect) Ur Amphetamines Screen Not Detected (Not Detect) U Benzodiazepines Scrn Not Detected (Not Detect) Urine Cocaine Screen Not Detected (Not Detect) U Marijuana (THC) Screen POSITIVE H (Not Detect) Ethyl Alcohol < 10 mg/dL Independent Interpretation I performed an independent interpretation of an: EKG Interpretation: Normal sinus rhythm heart rate prolonged QTC 473 milliseconds which is same as in the past nonspecific ST T wave changes no acute ischemia Discharge Plan Discharge Clinical Impression: Depression Patient Disposition: Still a Patient Prescriptions: No Action buspirone 5 mg tablet 5 mg PO BID amlodipine 5 mg tablet 5 mg PO DAILY meclizine 25 mg tablet 25 mg PO BID PRN (Reason: dizziness) quetiapine 50 mg tablet 50 mg PO BEDTIME atorvastatin 20 mg tablet 20 mg PO DAILY omeprazole 20 mg capsule,delayed release(DR/EC) 20 mg PO DAILY bupropion HCl 200 mg tablet sustained-release 12 hr 200 mg PO QAM clonazepam 0.5 mg tablet 0.5 mg PO BID PRN (Reason: Anxiety) Interventions: [place]-Suicide Risk Severity Scale Last Done: 09/14/23 17:52 Print Language: Grenadian
[2023-09-14 18:20] LABS: MANUAL DIFF FLAG NO
[2023-09-14 18:21] LABS: Basophils Absolute Auto 0.1 X10*3/uL (0.0-0.2); Basophils Percent Auto 1.3 % (0-2); Eosinophils Absolute Auto 0.2 X10*3/uL (0.0-0.4); Eosinophils Percent Auto 2.1 % (0-4); Hematocrit 36.2 % (37.0-47.0); Hemoglobin 11.9 g/dl (12.0-16.0); Imm Gran Abs Auto 0.03 X10*3/uL (0.00-0.03); Imm Gran Pct Auto 0.4 % (0.0-0.4); Lymphocytes Absolute Auto 1.3 X10*3/uL (1.2-4.9); Lymphocytes Percent Auto 17.8 % (20-40); Mean Corpuscular HGB Conc 32.9 g/dl (31.0-35.0); Mean Corpuscular Hemoglobin 31.4 pg (27.0-33.0); Mean Corpuscular Volume 95.5 fL (80.0-98.0); Mean Platelet Volume 11.3 fL (9.4-12.3); Monocytes Absolute Auto 0.7 X10*3/uL (0.1-1.2); Monocytes Percent Auto 9.3 % (2-11); Neutrophils Absolute Auto 4.9 x10*3/uL (2.0-8.3); Neutrophils Percent Auto 69.1 % (45-73); Platelet Count 206 X10*3/uL (160-400); Red Blood Count 3.79 X10*6/uL (4.20-5.50); Red Cell Distribution Width 14.1 % (11.0-16.0); White Blood Count 7.1 X10*3/uL (4.8-10.8)
[2023-09-14] MEDS: Acetaminophen 325 MG TABLET 975 MG PO (19:09)
[2023-09-14] MEDS: LORazepam 1 MG TABLET 2 MG PO (19:10)
[2023-09-14 19:28] LABS: Salicylate < 5.0 mg/dL (15-30)
[2023-09-14 19:38] LABS: Alanine Aminotransferase 18 U/L (0-31); Alkaline Phosphatase 105 U/L (39-117); Anion Gap 17 (12-20); Aspartate Amino Transferase 39 U/L (5-31); Bilirubin Total 0.9 mg/dL (0.0-1.0); Blood Urea Nitrogen 15 mg/dL (9-16); Calcium 9.4 mg/dL (8.4-10.2); Carbon Dioxide 18 mmol/L (22-29); Chloride 112 mmol/L (96-108); Creatinine Clr Calc Pharmacy 50.7; Estimated Glomerular Filt Rate 60; Glucose Random 98 mg/dL (60-115); Potassium 2.8 mmol/L (3.3-5.1); Sodium 144 mmol/L (135-145); Total Protein 6.6 g/dL (6.5-8.0)
[2023-09-14] MEDS: Potassium Chloride ER 20 MEQ TAB.ER.PRT 40 MEQ PO (20:07)
[2023-09-14 20:32] VITALS: BP 122/60; PULSE 75; RESP 18; TEMP 36.7; O2SAT 100
[2023-09-14] MEDS: busPIRone HCl 5 MG TABLET PO (20:55)
[2023-09-14] MEDS: QUEtiapine Fumarate 50 MG TABLET PO (20:55)
[2023-09-14 23:03] LABS: Ethanol < 10 mg/dL
[2023-09-15 05:46] VITALS: BP 151/63; PULSE 75; RESP 16; TEMP 36.7; O2SAT 99
[2023-09-15] MEDS: Omeprazole 20 MG CAPSULE.DR PO (05:52)
--- NOTE | 2023-09-15 06:59 | PC.NURSE ---
Patient slept through the night, no distress observed/reported, tearful and mad at her sisters for sending her here, med rec completed/medication compliant, patient was assessed by care team/disposition pending psych consult, no behavior and safety concerns, will continue to monitor
[2023-09-15] MEDS: Atorvastatin Calcium 20 MG TABLET PO (08:24)
[2023-09-15] MEDS: busPIRone HCl 5 MG TABLET PO ×2 (08:25→19:51)
[2023-09-15] MEDS: amLODIPine Besylate 5 MG TABLET PO (08:25)
[2023-09-15] MEDS: buPROPion HCl XL 150 MG TAB.ER.24H PO (08:25)
[2023-09-15] MEDS: clonazePAM 0.5 MG TABLET PO (08:25)
--- NOTE | 2023-09-15 08:31 | PC.NURSE ---
Assumed care of patient at 0645, patient is very tearful this am, reports that she is very upset with her family and that she is supposed to see a doctor today. patient medicated with Clonazepam for anxiety as well as her other morning medications Continue plan of care for psych consult
--- NOTE | 2023-09-15 10:21 | MHC.CARE ---
CASE reviewed - plan for referral for [facility] admission prior to pysch consult.
[2023-09-15 12:14] LABS: Appearance Urine Clear; Color Urine Yellow; Glucose Urine UA Negative (Negative); Leukocyte Esterase Urine Moderate (2+) (Negative); Nitrite Urine Negative (Negative); UMIC TRIGGER UA YES; Urine Blood Negative (Negative); Urine Ketones 15 mg/dL (Negative); Urine Protein Negative (Neg-Trace)
[2023-09-15 12:17] LABS: Bacteria Urine None Seen (None Seen); Hyaline Casts Urine 0-2 /LPF (0-2); RBC Urine 0-2 /HPF (0-2)
[2023-09-15 12:24] LABS: Amphetamine Screen Urine Not Detected (Not Detect); Barbiturates, Urine Not Detected (Not Detect); Benzodiazepines Screen Urine Not Detected (Not Detect); Buprenorphine Scr Not Detected (Not Detect); Cannabinoid Screen Urine POSITIVE (Not Detect); Cocaine Screen Urine Not Detected (Not Detect); Fentanyl, urine Not Detected (Not Detect); Methadone Screen, Urine Not Detected (Not Detect); Opiate Screen Urine Not Detected (Not Detect); Oxycodone Screen Urine Not Detected (Not Detect); Phencyclidine Screen Urine Not Detected (Not Detect)
[2023-09-15 14:11] VITALS: BP 138/86; PULSE 74; RESP 14; TEMP 36.6; O2SAT 96
[2023-09-15 14:26] LABS: Anion Gap 15 (12-20); Blood Urea Nitrogen 15 mg/dL (9-16); Calcium 8.9 mg/dL (8.4-10.2); Carbon Dioxide 19 mmol/L (22-29); Chloride 113 mmol/L (96-108); Estimated Glomerular Filt Rate > 60; Glucose Random 94 mg/dL (60-115); Sodium 144 mmol/L (135-145)
[2023-09-15 14:36] LABS: Potassium 3.4 mmol/L (3.3-5.1)
[2023-09-15] MEDS: LORazepam 1 MG TABLET 2 MG PO (15:20)
--- NOTE | 2023-09-15 18:07 | PC.NURSE ---
Dayan was presented to the emergency dept with her daughters who report she is experiencing increased agitation and confusion with increased memory loss and occasional combativeness. Dayan was admitted to from the POD on a CV at 1620. Calm and cooperative with the admission process. Skin assessment WNL. Emt/Paramedic used for paperwork and legal forms. Dayan is tearful at times and disclosed her daughters told her she was going to the beach and then brought her to the emergency room. Per their report she is endorsing SI and has inadvertently OD'd on medication in the past. Dayan currently lives alone with her daughter acting as her DIRECTOR OF HEALTH CARE MARKETING. Eye contact on assessment is intermittent and Dayan was given a tour of the unit. She indicates she is unsure about sharing a room with someone and has reported several times that her roommate get's up a lot . Dayan was reassured that is was still daytime and she can come to staff if that is happening during the night. Dayan is on 5 minute checks for her first 24 hours for safety. She has a slow and steady gait and ambulates independently. Dayan is able to perform her ADL's independently as well. Potassium level on 09/14/23 was 2.8 which was critically low. 40Meq of Potassium given and on recheck today her potassium level was 3.4. Toxicology was positive for marijuana only. Her daughters told the CARE team they stopped giving her HS trazodone as she seemed groggy. aDyan has declined to sign releases for her daughters but reports she may tomorrow.
[2023-09-15] MEDS: traZODone HCL 50 MG TABLET PO (19:50)
[2023-09-15] MEDS: QUEtiapine Fumarate 50 MG TABLET PO (19:51)
[2023-09-15 20:00] VITALS: BP 147/65; PULSE 82; RESP 18; TEMP 36.2; O2SAT 100
[2023-09-16] MEDS: Omeprazole 20 MG CAPSULE.DR PO (06:23)
[2023-09-16] MEDS: Atorvastatin Calcium 20 MG TABLET PO (08:23)
[2023-09-16] MEDS: buPROPion HCl XL 150 MG TAB.ER.24H PO (08:23)
[2023-09-16] MEDS: busPIRone HCl 5 MG TABLET PO ×2 (08:24→20:38)
[2023-09-16 08:25] VITALS: BP 122/64; PULSE 80; RESP 20; TEMP 36.3; O2SAT 100
[2023-09-16] MEDS: Milk of Magnesia 30 ML ORAL.SUSP PO (08:27)
[2023-09-16] MEDS: clonazePAM 0.5 MG TABLET PO ×2 (08:27→22:39)
[2023-09-16 08:28] VITALS: BP 122/64
[2023-09-16] MEDS: amLODIPine Besylate 5 MG TABLET PO (08:28)
[2023-09-16] MEDS: Acetaminophen 325 MG TABLET 650 MG PO (14:20)
[2023-09-16 19:42] VITALS: BP 133/59; PULSE 56; RESP 16; TEMP 36.4; O2SAT 100
[2023-09-16] MEDS: QUEtiapine Fumarate 50 MG TABLET PO (20:38)
[2023-09-16] MEDS: traZODone HCL 50 MG TABLET PO (20:38)
--- NOTE | 2023-09-16 21:57 | HO.PSYADMNOT ---
HPI Date of Service: 09/16/23 Chief Complaint: depression si instability HPI Narrative: pt is 68 yo [place] BIB family to ED for showing signs of dementia with memory loss, general confusion, irritability, and sometimes combativeness. per family, pt has h/o impulsively taking too much medication in attempt to sleep or control anxiety. pt reported to CARE team staff that she got into a verbal altercation with her daughters bcse her daughters have been telling her she is confused and aggressive. she feels they are telling her what to do and are demanding, which upsets her. she reports increased anxiety and exacerbated insomnia as a result. she asked for meds to help her sleep. she reported stomach pain after eating solid foods, which has affected her appetite. per daughter Mabel, who is her OCCUPATIONAL THERAPIST HOME BASED, pt has been unstable and threatening to take her life. she describes her mother as increasingly agitated and irritable, hitting and throwing objects in the house, expressing delusional ideas, not sleeping, and confusing family members. mabel reported pt has h/o unintentional overdose on medications. she states that when she attempts to give pt her medications, pt accuses her of trying to poison her and screams and yells. on interview with pt is calm and cooperative. she states she is having severe difficulty sleeping and asks for medication to help with sleep. in addition she c/o anxiety and depression and requests medication for those problems. MD agrees to such prescriptions, to start with remeron at HS tonight for sleep. also due to c/o ongoing reflux discomfort, will increase omeprazole dosing. she minimizes any substance abuse, only acknowledging having tried cannabis for insomnia in the not too distant past, over the course of a month. she cannot recall how long ago that was (utox cannabis POS). some of her answers contradict information she reported to CARE team or that her daughter reported as part of her history, elevating concern for cognitive disorder. Past Psychiatric History: hosp: per CARE team eval, once as a teen, unintentional overdose. per daughter, has 2-3, once at [facility] recently. SA: denies SIB: denies outpt: none presently Medical Evaluation Reviewed: Yes [facility] Medical History (Updated 09/17/23 @ 16:36 by Mike Yu MD) Hyperlipidemia Essential hypertension Anxiety Depression FH: Alzheimers disease Family History: Alzheimer's dementia. pt denies any FH of mental illness or substance use disorder. Social History: from [place], came to [facility] at 16 yo. 4 daughters, 2 sons. was for 32 years. lives in her own apartment. on SSI. in school until about 16 yo, did not graduate HS. 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 youngest daughter acts as OCCUPATIONAL THERAPIST HOME BASED. Substance History: tobacco - denies use. remote h/o use. alcohol - denies use cannabis - tried for a time for anxiety. used < 1 month. can't recall how long ago that was. utox cannabis POS. benzos - prescribed klonopin. taking once daily, at HS, per pt. denies use of cocaine, opioids, pills, stimulants. Trauma History: denies h/o childhood abuse, DV, sexual assault, other trauma Hx to MD at admission. per CARE team vignesh, pt endorsed trauma Hx but did not elaborate. Diagnostics Vital Signs (24Hr): Vital Signs - 24 hr 09/16/23 08:25 09/16/23 08:28 09/16/23 19:42 Temperature 97.4 F 97.6 F Pulse Rate 80 56 Respiratory Rate 20 16 Blood Pressure 122/64 122/64 133/59 L Pulse Oximetry 100 100 Oxygen Delivery Method Room Air Room Air BMI result Body Mass Index 26.5 Labs 09/14/23 18:14 09/15/23 14:06 Labs: Laboratory Results - last 48 hr 09/14/23 09/15/23 09/15/23 18:14 12:00 14:06 Sodium 144 Potassium 3.4 D Chloride 113 H Carbon Dioxide 19 L Anion Gap 15 BUN 15 Creatinine 0.89 Estim Creat Clear Calc 53.0 Estimated GFR > 60 Random Glucose 94 Calcium 8.9 Urine Color Yellow Urine Appearance Clear Urine pH 6.0 Ur Specific [place] 1.010 Urine Protein Negative Urine Glucose (UA) Negative Urine Ketones 15 Urine Blood Negative Urine Nitrite Negative Ur Leukocyte Esterase Moderate (2+) H Urine RBC 0-2 Urine WBC 6-10 H Ur Squamous Epith Cells 6-10 Urine Bacteria None Seen Hyaline Casts 0-2 Urine Opiates Screen Not Detected Ur Buprenorphine Scrn Not Detected Ur Oxycodone Screen Not Detected Urine Methadone Screen Not Detected Urine Fentanyl Screen Not Detected Ur Barbiturates Screen Not Detected Ur Phencyclidine Scrn Not Detected Ur Amphetamines Screen Not Detected U Benzodiazepines Scrn Not Detected Urine Cocaine Screen Not Detected U Marijuana (THC) Screen POSITIVE H Ethyl Alcohol < 10 Imaging Radiology Impressions: ITS Impressions Head CT 09/14/23 18:46 IMPRESSION: No acute intracranial pathology. Meds/Allergies Meds Home Medications ?Medication ?Instructions ?Recorded ?Confirmed ?Type clonazepam 0.5 mg tablet 0.5 mg PO BID PRN Anxiety 08/21/22 09/14/23 History amlodipine 5 mg tablet 5 mg PO DAILY 09/14/23 09/14/23 History atorvastatin 20 mg tablet 20 mg PO DAILY 09/14/23 09/14/23 History bupropion HCl 200 mg tablet,12 hr 200 mg PO QAM 09/14/23 09/14/23 History sustained-release buspirone 5 mg tablet 5 mg PO BID 09/14/23 09/14/23 History meclizine 25 mg tablet 25 mg PO BID PRN dizziness 09/14/23 09/14/23 History omeprazole 20 mg capsule,delayed 20 mg PO DAILY 09/14/23 09/14/23 History release quetiapine 50 mg tablet 50 mg PO BEDTIME 09/14/23 09/14/23 History Allergies Allergies Allergy/AdvReac Type Severity Reaction Status Date / Time No Known Allergies Allergy Verified 09/14/23 17:49 Mental Status Exam Mental Status Exam Narrative: adequately dressed and groomed. cooperative. no PMA/PMR. speech nml rate, amount, loudness, tone, latency. thoughts somewhat digressive but able to be linear. no delusions or paranoia evident. affect normo-intense, non-labile, constricted. mood bad, bad, bad. no SI/HI/AVH. Assessment & Plan Assessment & Plan (1) Anxiety disorder, unspecified: Status: Acute Code(s): F41.9 - Anxiety disorder, unspecified (2) Depression: Status: Acute Code(s): F32.A - Depression, unspecified (3) Cannabis abuse: Status: Acute Code(s): F12.10 - Cannabis abuse, uncomplicated (4) Cognitive disorder: Status: Acute Code(s): F09 - Unspecified mental disorder due to known physiological condition Plan start remeron 7.5 QHS with repeat PRN for insomnia. plan to start SSRI soon. increase omeprazole for GERD Sx. best plan would be to taper klonopin, but will need to get control over anxiety some other way first and establish rapport first. cannabis POS utox noted, pt reported having only tried cannabis over the period of one month sufficiently long ago that she cannot recall quite how long ago it was. work with family on dispo. Patient educated on: diagnosis and medication risk/benefits Reason for continued inpatient stay Substantial Risk for: inability to function and rapid decompensation Statement Statement: I have reviewed the history and physical and performed a pertinent examination on my patient. No changes have occurred unless specified. If the History and Physical was not performed prior to admission, the Hospitalist's service will be consulted for completing the admission physical. Time Spent With Patient Time: Total time managing care of this patient today __55__ minutes.
[2023-09-16] MEDS: Mirtazapine 7.5 MG TABLET PO (22:39)
[2023-09-17] MEDS: Omeprazole 20 MG CAPSULE.DR PO ×2 (06:05→15:30)
[2023-09-17 08:05] VITALS: BP 136/61; PULSE 63; RESP 20; TEMP 36.3; O2SAT 99
[2023-09-17] MEDS: busPIRone HCl 5 MG TABLET PO ×2 (08:05→20:31)
[2023-09-17] MEDS: buPROPion HCl XL 150 MG TAB.ER.24H PO (08:05)
[2023-09-17] MEDS: amLODIPine Besylate 5 MG TABLET PO (08:05)
[2023-09-17] MEDS: Atorvastatin Calcium 20 MG TABLET PO (08:06)
[2023-09-17] MEDS: clonazePAM 0.5 MG TABLET PO ×2 (08:52→20:32)
[2023-09-17] MEDS: polyethylene glycoL 3350 17 GM POWD.PACK PO (13:12)
[2023-09-17] MEDS: Sertraline HCL 50 MG TABLET PO (13:13)
[2023-09-17] MEDS: Magnesium Hydrox/Alum Hydrox 30 ML ORAL.SUSP PO (14:03)
--- NOTE | 2023-09-17 14:09 | P.PNPSI_ITS ---
Subjective Subjective Date of Service: 09/17/23 Reason For Visit: depression si instability Interim History: cooperative. irritable, negativistic. c/o anxiety, SHAW, constipation, restless roommate. offered miralax, SSRI, roommate switch. per staff, reporting dep/anx 7 today, down from 10 yesterday. Mental Status Exam Mental Status Exam Narrative: adequately dressed and groomed. cooperative. no PMA/PMR. speech nml rate, amount, loudness, tone, latency. thoughts somewhat digressive but able to be linear. no delusions or paranoia evident. affect normo-intense, non-labile, constricted. mood anxious. no SI/HI/AVH expressed. Diagnostics Vital Signs (24Hr): Vital Signs - 24 hr 09/16/23 19:42 09/17/23 08:05 09/17/23 08:05 Temperature 97.6 F 97.3 F Pulse Rate 56 63 Respiratory Rate 16 20 Blood Pressure 133/59 L 136/61 136/61 Pulse Oximetry 100 99 Oxygen Delivery Method Room Air Room Air BMI result Body Mass Index 26.5 Labs 09/14/23 18:14 09/15/23 14:06 Labs: Laboratory Results - last 48 hr 09/15/23 14:06 Sodium 144 Potassium 3.4 D Chloride 113 H Carbon Dioxide 19 L Anion Gap 15 BUN 15 Creatinine 0.89 Estim Creat Clear Calc 53.0 Estimated GFR > 60 Random Glucose 94 Calcium 8.9 Imaging Radiology Impressions: ITS Impressions Head CT 09/14/23 18:46 IMPRESSION: No acute intracranial pathology. Medications Medications Current Medications Acetaminophen (Acetaminophen 325 Mg Tablet) 650 mg PO Q6H PRN PRN Reason: Headache/Pain Mild Scale (1-3) Last Admin: 09/16/23 14:20 Dose: 650 mg Al Hydroxide/Mg Hydroxide (Magnesium Hydrox/Alum Hydrox 30 Ml Oral.Susp) 30 ml PO Q6H PRN PRN Reason: Heartburn/Nausea Last Admin: 09/17/23 14:03 Dose: 30 ml Amlodipine Besylate (Amlodipine Besylate 5 Mg Tablet) 5 mg PO DAILY [facility]; Protocol Last Admin: 09/17/23 08:05 Dose: 5 mg Atorvastatin Calcium (Atorvastatin Calcium 20 Mg Tablet) 20 mg PO DAILY [facility] Last Admin: 09/17/23 08:06 Dose: 20 mg Bupropion HCl (Bupropion Hcl Xl 150 Mg Tab.Er.24h) 150 mg PO DAILY [facility] Last Admin: 09/17/23 08:05 Dose: 150 mg Buspirone HCl (Buspirone Hcl 5 Mg Tablet) 5 mg PO BID [facility] Last Admin: 09/17/23 08:05 Dose: 5 mg Clonazepam (Clonazepam 0.5 Mg Tablet) 0.5 mg PO BID PRN PRN Reason: Anxiety Last Admin: 09/17/23 08:52 Dose: 0.5 mg Magnesium Hydroxide (Milk Of Magnesia 30 Ml Oral.Susp) 30 ml PO DAILY PRN PRN Reason: Constipation Last Admin: 09/16/23 08:27 Dose: 30 ml Meclizine HCl (Meclizine Hcl 25 Mg Tablet) 25 mg PO BID PRN PRN Reason: dizziness Mirtazapine (Mirtazapine 15 Mg Tablet) 15 mg PO BEDTIME [facility] Mirtazapine (Mirtazapine 15 Mg Tablet) 15 mg PO BEDTIME PRN PRN Reason: insomnia Omeprazole (Omeprazole 20 Mg Capsule.Dr) 20 mg PO BID@0630,1530 [facility] Polyethylene Glycol (Polyethylene Glycol 3350 17 Gm Powd.Pack) 17 gm PO DAILY PRN PRN Reason: Constipation Last Admin: 09/17/23 13:12 Dose: 17 gm Quetiapine Fumarate (Quetiapine Fumarate 50 Mg Tablet) 50 mg PO BEDTIME [facility] Last Admin: 09/16/23 20:38 Dose: 50 mg Sertraline HCl (Sertraline Hcl 50 Mg Tablet) 50 mg PO DAILY [facility] Last Admin: 09/17/23 13:13 Dose: 50 mg Allergies Allergies Allergy/AdvReac Type Severity Reaction Status Date / Time No Known Allergies Allergy Verified 09/14/23 17:49 Assessment & Plan Assessment & Plan (1) Depression: Status: Acute Code(s): F32.A - Depression, unspecified (2) Anxiety disorder, unspecified: Status: Acute Code(s): F41.9 - Anxiety disorder, unspecified Plan 09/16: add zoloft 50 mg daily for depression/anxiety. miralax PRN constipation. increase HS remeron to 15 mg. increase omep to 20 BID. otherwise continue current mgmt. Reason for continued inpatient stay Substantial Risk for: inability to function and rapid decompensation Time Spent With Patient Time: Total time managing care of this patient today __25__ minutes.
[2023-09-17 20:00] VITALS: BP 116/56; PULSE 73; RESP 16; TEMP 36.8; O2SAT 99
[2023-09-17] MEDS: QUEtiapine Fumarate 50 MG TABLET PO (20:32)
[2023-09-17] MEDS: Mirtazapine 15 MG TABLET PO ×2 (20:32)
[2023-09-18] MEDS: Omeprazole 20 MG CAPSULE.DR PO ×2 (06:50→15:07)
[2023-09-18 08:00] VITALS: BP 141/63; PULSE 67; RESP 16; TEMP 36.1; O2SAT 99
[2023-09-18] MEDS: Atorvastatin Calcium 20 MG TABLET PO (08:09)
[2023-09-18] MEDS: Sertraline HCL 50 MG TABLET PO (08:09)
[2023-09-18] MEDS: buPROPion HCl XL 150 MG TAB.ER.24H PO (08:09)
[2023-09-18] MEDS: busPIRone HCl 5 MG TABLET PO ×2 (08:09→20:03)
[2023-09-18] MEDS: amLODIPine Besylate 5 MG TABLET PO (08:09)
[2023-09-18] MEDS: Acetaminophen 325 MG TABLET 650 MG PO (13:02)
[2023-09-18 13:18] VITALS: BMI 23.3
[2023-09-18] MEDS: clonazePAM 0.5 MG TABLET PO (16:46)
--- NOTE | 2023-09-18 17:20 | HO.PSYCHPN ---
Subjective Subjective Date of Service: 09/18/23 Reason For Visit: depression si instability Interim History: reports she slept well with meds. no s/e or physical problems. c/o anxiety. per staff, slept well, no issues. Mental Status Exam Mental Status Exam Narrative: adequately dressed and groomed. cooperative. no PMA/PMR. speech nml rate, amount, loudness, tone, latency. thoughts somewhat digressive but able to be linear. no delusions or paranoia evident. affect normo-intense, non-labile, constricted. mood anxious. no SI/HI/AVH expressed. Diagnostics Vital Signs (24Hr): Vital Signs - 24 hr 09/17/23 20:00 09/18/23 08:00 Temperature 98.2 F 96.9 F Pulse Rate 73 67 Respiratory Rate 16 16 Blood Pressure 116/56 L 141/63 H Pulse Oximetry 99 99 Oxygen Delivery Method Room Air Room Air BMI result Body Mass Index 23.3 Labs 09/14/23 18:14 09/15/23 14:06 Imaging Radiology Impressions: ITS Impressions Head CT 09/14/23 18:46 IMPRESSION: No acute intracranial pathology. Medications Medications Current Medications Acetaminophen (Acetaminophen 325 Mg Tablet) 650 mg PO Q6H PRN PRN Reason: Headache/Pain Mild Scale (1-3) Last Admin: 09/18/23 13:02 Dose: 650 mg Al Hydroxide/Mg Hydroxide (Magnesium Hydrox/Alum Hydrox 30 Ml Oral.Susp) 30 ml PO Q6H PRN PRN Reason: Heartburn/Nausea Last Admin: 09/17/23 14:03 Dose: 30 ml Amlodipine Besylate (Amlodipine Besylate 5 Mg Tablet) 5 mg PO DAILY [facility]; Protocol Last Admin: 09/18/23 08:09 Dose: 5 mg Atorvastatin Calcium (Atorvastatin Calcium 20 Mg Tablet) 20 mg PO DAILY [facility] Last Admin: 09/18/23 08:09 Dose: 20 mg Bupropion HCl (Bupropion Hcl Xl 150 Mg Tab.Er.24h) 150 mg PO DAILY [facility] Last Admin: 09/18/23 08:09 Dose: 150 mg Buspirone HCl (Buspirone Hcl 5 Mg Tablet) 5 mg PO BID [facility] Last Admin: 09/18/23 08:09 Dose: 5 mg Clonazepam (Clonazepam 0.5 Mg Tablet) 0.5 mg PO BID PRN PRN Reason: Anxiety Last Admin: 09/18/23 16:46 Dose: 0.5 mg Magnesium Hydroxide (Milk Of Magnesia 30 Ml Oral.Susp) 30 ml PO DAILY PRN PRN Reason: Constipation Last Admin: 09/16/23 08:27 Dose: 30 ml Meclizine HCl (Meclizine Hcl 25 Mg Tablet) 25 mg PO BID PRN PRN Reason: dizziness Mirtazapine (Mirtazapine 15 Mg Tablet) 15 mg PO BEDTIME [facility] Last Admin: 09/17/23 20:32 Dose: 15 mg Mirtazapine (Mirtazapine 15 Mg Tablet) 15 mg PO BEDTIME PRN PRN Reason: insomnia Last Admin: 09/17/23 20:32 Dose: 15 mg Omeprazole (Omeprazole 20 Mg Capsule.Dr) 20 mg PO BID@0630,1530 [facility] Last Admin: 09/18/23 15:07 Dose: 20 mg Polyethylene Glycol (Polyethylene Glycol 3350 17 Gm Powd.Pack) 17 gm PO DAILY PRN PRN Reason: Constipation Last Admin: 09/17/23 13:12 Dose: 17 gm Quetiapine Fumarate (Quetiapine Fumarate 50 Mg Tablet) 50 mg PO BEDTIME [facility] Last Admin: 09/17/23 20:32 Dose: 50 mg Sertraline HCl (Sertraline Hcl 50 Mg Tablet) 50 mg PO DAILY [facility] Last Admin: 09/18/23 08:09 Dose: 50 mg Allergies Allergies Allergy/AdvReac Type Severity Reaction Status Date / Time No Known Allergies Allergy Verified 09/14/23 17:49 Assessment & Plan Assessment & Plan (1) Anxiety disorder, unspecified: Status: Acute Code(s): F41.9 - Anxiety disorder, unspecified (2) Depression: Status: Acute Code(s): F32.A - Depression, unspecified (3) Cannabis abuse: Status: Acute Code(s): F12.10 - Cannabis abuse, uncomplicated (4) Cognitive disorder: Status: Acute Code(s): F09 - Unspecified mental disorder due to known physiological condition Plan 09/15: start remeron 7.5 QHS with repeat PRN for insomnia. plan to start SSRI soon. increase omeprazole for GERD Sx. best plan would be to taper klonopin, but will need to get control over anxiety some other way first and establish rapport first. cannabis POS utox noted, pt reported having only tried cannabis over the period of one month sufficiently long ago that she cannot recall quite how long ago it was. work with family on dispo. 09/16: add zoloft 50 mg daily for depression/anxiety. miralax PRN constipation. increase HS remeron to 15 mg. increase omep to 20 BID. otherwise continue current mgmt. 09/17: slept well last night. continues to c/o anxiety. informed of timeframe to expect improvement from sertraline. continue current mgmt. eval cognitive performance. Reason for continued inpatient stay Substantial Risk for: inability to function Time Spent With Patient Time: Total time managing care of this patient today ____ minutes.
[2023-09-18 19:41] VITALS: BP 112/55; PULSE 62; RESP 16; TEMP 36.4; O2SAT 100
[2023-09-18] MEDS: QUEtiapine Fumarate 50 MG TABLET PO (20:03)
[2023-09-18] MEDS: Mirtazapine 15 MG TABLET PO (20:03)
[2023-09-19] MEDS: Omeprazole 20 MG CAPSULE.DR PO ×2 (06:13→15:40)
[2023-09-19 08:39] VITALS: BP 138/63; PULSE 67; RESP 16; TEMP 36.6; O2SAT 99
[2023-09-19] MEDS: Atorvastatin Calcium 20 MG TABLET PO (08:40)
[2023-09-19] MEDS: buPROPion HCl XL 150 MG TAB.ER.24H PO (08:40)
[2023-09-19] MEDS: busPIRone HCl 5 MG TABLET PO ×2 (08:40→20:34)
[2023-09-19] MEDS: amLODIPine Besylate 5 MG TABLET PO (08:40)
[2023-09-19] MEDS: Sertraline HCL 50 MG TABLET PO (08:40)
--- NOTE | 2023-09-19 17:13 | HO.PSYCHPN ---
Subjective Subjective Date of Service: 09/19/23 Reason For Visit: depression si instability Subjective Notes: Conditional Voluntary Interim History: The nursing staff reported the patient had being isolative at times but easily redirectable. 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 In the last weeks after the UTI she had been more confused. On interview the patient reports that she is feeling tired during the day since she has poor sleep. She agreed increase Seroquel up to 100 mg p.o. q.h.s.. According to her daughters the patient has a past history of over using NyQuil and other hypnotics. Mental Status Exam Mental Status Exam Patient Appearance: Appropriate Patient Orientation: Person and Situation Level of Consciousness: Awake Patient Behavior: Guarded and Passive Mood Description: Withdrawn Affect Description: Constricted Patient Cognition Impaired: Yes Ability to Follow Directions: Good Speech Pattern: Clear Hallucinations: None Delusions: Paranoid Ideation Thought Content: positive for [place] and positive for Poverty of Content Judgement: Poor Diagnostics Vital Signs (24Hr): Vital Signs - 24 hr 09/18/23 19:41 09/19/23 08:39 Temperature 97.6 F 98 F Pulse Rate 62 67 Respiratory Rate 16 16 Blood Pressure 112/55 L 138/63 Pulse Oximetry 100 99 Oxygen Delivery Method Room Air Room Air BMI result Body Mass Index 23.3 Labs 09/14/23 18:14 09/15/23 14:06 Imaging Radiology Impressions: ITS Impressions Head CT 09/14/23 18:46 IMPRESSION: No acute intracranial pathology. Medications Medications Current Medications Acetaminophen (Acetaminophen 325 Mg Tablet) 650 mg PO Q6H PRN PRN Reason: Headache/Pain Mild Scale (1-3) Last Admin: 09/18/23 13:02 Dose: 650 mg Al Hydroxide/Mg Hydroxide (Magnesium Hydrox/Alum Hydrox 30 Ml Oral.Susp) 30 ml PO Q6H PRN PRN Reason: Heartburn/Nausea Last Admin: 09/17/23 14:03 Dose: 30 ml Amlodipine Besylate (Amlodipine Besylate 5 Mg Tablet) 5 mg PO DAILY [facility]; Protocol Last Admin: 09/19/23 08:40 Dose: 5 mg Atorvastatin Calcium (Atorvastatin Calcium 20 Mg Tablet) 20 mg PO DAILY [facility] Last Admin: 09/19/23 08:40 Dose: 20 mg Bupropion HCl (Bupropion Hcl Xl 150 Mg Tab.Er.24h) 150 mg PO DAILY [facility] Last Admin: 09/19/23 08:40 Dose: 150 mg Buspirone HCl (Buspirone Hcl 5 Mg Tablet) 5 mg PO BID [facility] Last Admin: 09/19/23 08:40 Dose: 5 mg Clonazepam (Clonazepam 0.5 Mg Tablet) 0.5 mg PO BID PRN PRN Reason: Anxiety Last Admin: 09/18/23 16:46 Dose: 0.5 mg Magnesium Hydroxide (Milk Of Magnesia 30 Ml Oral.Susp) 30 ml PO DAILY PRN PRN Reason: Constipation Last Admin: 09/16/23 08:27 Dose: 30 ml Meclizine HCl (Meclizine Hcl 25 Mg Tablet) 25 mg PO BID PRN PRN Reason: dizziness Mirtazapine (Mirtazapine 15 Mg Tablet) 15 mg PO BEDTIME [facility] Last Admin: 09/18/23 20:03 Dose: 15 mg Mirtazapine (Mirtazapine 15 Mg Tablet) 15 mg PO BEDTIME PRN PRN Reason: insomnia Last Admin: 09/17/23 20:32 Dose: 15 mg Omeprazole (Omeprazole 20 Mg Capsule.Dr) 20 mg PO BID@0630,1530 [facility] Last Admin: 09/19/23 15:40 Dose: 20 mg Polyethylene Glycol (Polyethylene Glycol 3350 17 Gm Powd.Pack) 17 gm PO DAILY PRN PRN Reason: Constipation Last Admin: 09/17/23 13:12 Dose: 17 gm Quetiapine Fumarate (Quetiapine Fumarate 50 Mg Tablet) 50 mg PO BEDTIME [facility] Last Admin: 09/18/23 20:03 Dose: 50 mg Sertraline HCl (Sertraline Hcl 50 Mg Tablet) 50 mg PO DAILY [facility] Last Admin: 09/19/23 08:40 Dose: 50 mg Allergies Allergies Allergy/AdvReac Type Severity Reaction Status Date / Time No Known Allergies Allergy Verified 09/14/23 17:49 Assessment & Plan Assessment & Plan (1) Anxiety disorder, unspecified: Status: Acute Code(s): F41.9 - Anxiety disorder, unspecified (2) Depression: Status: Acute Code(s): F32.A - Depression, unspecified (3) Cannabis abuse: Status: Acute Code(s): F12.10 - Cannabis abuse, uncomplicated (4) Cognitive disorder: Status: Acute Code(s): F09 - Unspecified mental disorder due to known physiological condition Plan 09/15: start remeron 7.5 QHS with repeat PRN for insomnia. plan to start SSRI soon. increase omeprazole for GERD Sx. best plan would be to taper klonopin, but will need to get control over anxiety some other way first and establish rapport first. cannabis POS utox noted, pt reported having only tried cannabis over the period of one month sufficiently long ago that she cannot recall quite how long ago it was. work with family on dispo. 09/16: add zoloft 50 mg daily for depression/anxiety. miralax PRN constipation. increase HS remeron to 15 mg. increase omep to 20 BID. otherwise continue current mgmt. 09/17: slept well last night. continues to c/o anxiety. informed of timeframe to expect improvement from sertraline. continue current mgmt. eval cognitive performance. 09/18 increase Seroquel up to 100 mg p.o. q.h.s.. Reason for continued inpatient stay Substantial Risk for: inability to function, rapid decompensation and med/psych decompensation Time Spent With Patient Time: Total time managing care of this patient today __20__ minutes.
[2023-09-19 20:00] VITALS: BP 129/58; PULSE 62; RESP 16; TEMP 36.4; O2SAT 100
[2023-09-19] MEDS: Mirtazapine 15 MG TABLET PO (20:34)
[2023-09-19] MEDS: Acetaminophen 325 MG TABLET 650 MG PO (20:34)
[2023-09-19] MEDS: QUEtiapine Fumarate 100 MG TABLET PO (20:34)
[2023-09-20] MEDS: Mirtazapine 15 MG TABLET PO ×2 (01:48→20:38)
[2023-09-20] MEDS: clonazePAM 0.5 MG TABLET PO ×3 (01:48→20:38)
[2023-09-20] MEDS: Omeprazole 20 MG CAPSULE.DR PO ×2 (06:32→15:30)
[2023-09-20 08:42] VITALS: BP 141/68; PULSE 85; RESP 18; TEMP 36.3; O2SAT 97
[2023-09-20] MEDS: Atorvastatin Calcium 20 MG TABLET PO (08:45)
[2023-09-20] MEDS: buPROPion HCl XL 150 MG TAB.ER.24H PO (08:45)
[2023-09-20] MEDS: busPIRone HCl 5 MG TABLET PO ×2 (08:45→20:38)
[2023-09-20] MEDS: Sertraline HCL 50 MG TABLET PO (08:45)
[2023-09-20] MEDS: amLODIPine Besylate 5 MG TABLET PO (08:45)
--- NOTE | 2023-09-20 08:50 | HO.PSYCHPN ---
Subjective Subjective Date of Service: 09/20/23 Reason For Visit: depression si instability Interim History: Reviewed with team. Pt with depressive sx, poor sleep, anxiety, tearfulness. Poor appetite. Daughter visited which was helpful for pt, Klonopin prn also helpful. This was increased. Medication Compliance: Yes Review of Systems Acute medical concerns: No Medical Review of Systems: unchanged Review of Systems Review of Systems anxiety, poor appetite Mental Status Exam Mental Status Exam Patient Appearance: Appropriate Patient Orientation: Person and Situation Level of Consciousness: Awake Patient Behavior: Guarded and Passive Mood Description: Withdrawn Affect Description: Constricted Patient Cognition Impaired: Yes Ability to Follow Directions: Good Speech Pattern: Clear Hallucinations: None Delusions: Paranoid Ideation Thought Content: positive for [place] and positive for Poverty of Content Judgement: Poor Diagnostics Vital Signs (24Hr): Vital Signs - 24 hr 09/19/23 20:00 09/20/23 08:42 Temperature 97.5 F 97.3 F Pulse Rate 62 85 Respiratory Rate 16 18 Blood Pressure 129/58 L 141/68 H Pulse Oximetry 100 97 Oxygen Delivery Method Room Air Room Air BMI result Body Mass Index 23.3 Labs 09/14/23 18:14 09/15/23 14:06 Imaging Radiology Impressions: ITS Impressions Head CT 09/14/23 18:46 IMPRESSION: No acute intracranial pathology. Medications Medications Current Medications Acetaminophen (Acetaminophen 325 Mg Tablet) 650 mg PO Q6H PRN PRN Reason: Headache/Pain Mild Scale (1-3) Last Admin: 09/19/23 20:34 Dose: 650 mg Al Hydroxide/Mg Hydroxide (Magnesium Hydrox/Alum Hydrox 30 Ml Oral.Susp) 30 ml PO Q6H PRN PRN Reason: Heartburn/Nausea Last Admin: 09/17/23 14:03 Dose: 30 ml Amlodipine Besylate (Amlodipine Besylate 5 Mg Tablet) 5 mg PO DAILY [facility]; Protocol Last Admin: 09/20/23 08:45 Dose: 5 mg Atorvastatin Calcium (Atorvastatin Calcium 20 Mg Tablet) 20 mg PO DAILY [facility] Last Admin: 09/20/23 08:45 Dose: 20 mg Bupropion HCl (Bupropion Hcl Xl 150 Mg Tab.Er.24h) 150 mg PO DAILY [facility] Last Admin: 09/20/23 08:45 Dose: 150 mg Buspirone HCl (Buspirone Hcl 5 Mg Tablet) 5 mg PO BID [facility] Last Admin: 09/20/23 08:45 Dose: 5 mg Clonazepam (Clonazepam 0.5 Mg Tablet) 0.5 mg PO BID PRN PRN Reason: Anxiety Last Admin: 09/20/23 01:48 Dose: 0.5 mg Magnesium Hydroxide (Milk Of Magnesia 30 Ml Oral.Susp) 30 ml PO DAILY PRN PRN Reason: Constipation Last Admin: 09/16/23 08:27 Dose: 30 ml Meclizine HCl (Meclizine Hcl 25 Mg Tablet) 25 mg PO BID PRN PRN Reason: dizziness Mirtazapine (Mirtazapine 15 Mg Tablet) 15 mg PO BEDTIME [facility] Last Admin: 09/19/23 20:34 Dose: 15 mg Mirtazapine (Mirtazapine 15 Mg Tablet) 15 mg PO BEDTIME PRN PRN Reason: insomnia Last Admin: 09/20/23 01:48 Dose: 15 mg Omeprazole (Omeprazole 20 Mg Capsule.Dr) 20 mg PO BID@0630,1530 [facility] Last Admin: 09/20/23 06:32 Dose: 20 mg Polyethylene Glycol (Polyethylene Glycol 3350 17 Gm Powd.Pack) 17 gm PO DAILY PRN PRN Reason: Constipation Last Admin: 09/17/23 13:12 Dose: 17 gm Quetiapine Fumarate (Quetiapine Fumarate 100 Mg Tablet) 100 mg PO BEDTIME [facility] Last Admin: 09/19/23 20:34 Dose: 100 mg Sertraline HCl (Sertraline Hcl 50 Mg Tablet) 50 mg PO DAILY [facility] Last Admin: 09/20/23 08:45 Dose: 50 mg Allergies Allergies Allergy/AdvReac Type Severity Reaction Status Date / Time No Known Allergies Allergy Verified 09/14/23 17:49 Assessment & Plan Assessment & Plan (1) Anxiety disorder, unspecified: Status: Acute Code(s): F41.9 - Anxiety disorder, unspecified (2) Depression: Status: Acute Code(s): F32.A - Depression, unspecified (3) Cannabis abuse: Status: Acute Code(s): F12.10 - Cannabis abuse, uncomplicated (4) Cognitive disorder: Status: Acute Code(s): F09 - Unspecified mental disorder due to known physiological condition Plan 09/15: start remeron 7.5 QHS with repeat PRN for insomnia. plan to start SSRI soon. increase omeprazole for GERD Sx. best plan would be to taper klonopin, but will need to get control over anxiety some other way first and establish rapport first. cannabis POS utox noted, pt reported having only tried cannabis over the period of one month sufficiently long ago that she cannot recall quite how long ago it was. work with family on dispo. 09/16: add zoloft 50 mg daily for depression/anxiety. miralax PRN constipation. increase HS remeron to 15 mg. increase omep to 20 BID. otherwise continue current mgmt. 09/17: slept well last night. continues to c/o anxiety. informed of timeframe to expect improvement from sertraline. continue current mgmt. eval cognitive performance. 09/18 increase Seroquel up to 100 mg p.o. q.h.s.. 09/19 increase Klonopin to prn qid Reason for continued inpatient stay Substantial Risk for: rapid decompensation Time Spent With Patient Time: Total time managing care of this patient today ____ minutes.
[2023-09-20 20:00] VITALS: BP 113/54; PULSE 64; RESP 16; TEMP 36.3; O2SAT 100
[2023-09-20] MEDS: QUEtiapine Fumarate 100 MG TABLET PO (20:38)
[2023-09-21] MEDS: Omeprazole 20 MG CAPSULE.DR PO ×2 (06:21→15:58)
[2023-09-21 08:00] VITALS: BP 121/65; PULSE 73; RESP 16; TEMP 36.1; O2SAT 99
[2023-09-21] MEDS: Sertraline HCL 50 MG TABLET PO (08:13)
[2023-09-21] MEDS: amLODIPine Besylate 5 MG TABLET PO (08:14)
[2023-09-21] MEDS: Acetaminophen 325 MG TABLET 650 MG PO (08:14)
[2023-09-21] MEDS: busPIRone HCl 5 MG TABLET PO ×2 (08:14→20:54)
[2023-09-21] MEDS: buPROPion HCl XL 150 MG TAB.ER.24H PO (08:14)
[2023-09-21] MEDS: Atorvastatin Calcium 20 MG TABLET PO (08:14)
--- NOTE | 2023-09-21 12:44 | HO.PSYCHPN ---
Subjective Subjective Date of Service: 09/21/23 Reason For Visit: depression si instability Interim History: Reviewed with team. Pt appears calmer, more positive today. 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 Reports dizziness, tinnitus. Meclizine is ordered, however she has not tried this intervention yet.States she slept well, intake is good. knees hurt when she walks a lot, legs vibrate at night. Hopes to be able to socialize like my room-mate when her depressive symptoms are treated. Medication Compliance: Yes Side effects from medications: No Attending Groups: Intermittent Review of Systems Acute medical concerns: No Medical Review of Systems: unchanged Review of Systems Review of Systems dizziness, tinnitus Mental Status Exam Mental Status Exam Patient Appearance: Appropriate Patient Orientation: Person, Place and Situation Level of Consciousness: Awake Patient Behavior: Talkative and Good Eye Contact Mood Description: Depressed Affect Description: Flat Patient Cognition Impaired: Yes Ability to Follow Directions: Good Speech Pattern: Clear and Spontaneous Speech Hallucinations: None Thought Content: positive for [place] and positive for Circumstantial Depressive Symptoms: Isolating-Friends/Family Judgement: Fair Diagnostics Vital Signs (24Hr): Vital Signs - 24 hr 09/20/23 20:00 09/21/23 08:00 Temperature 97.4 F 96.9 F Pulse Rate 64 73 Respiratory Rate 16 16 Blood Pressure 113/54 L 121/65 Pulse Oximetry 100 99 Oxygen Delivery Method Room Air Room Air BMI result Body Mass Index 23.3 Labs 09/14/23 18:14 09/15/23 14:06 Imaging Radiology Impressions: [facility] Impressions Head CT 09/14/23 18:46 IMPRESSION: No acute intracranial pathology. Medications Medications Current Medications Acetaminophen (Acetaminophen 325 Mg Tablet) 650 mg PO Q6H PRN PRN Reason: Headache/Pain Mild Scale (1-3) Last Admin: 09/21/23 08:14 Dose: 650 mg Al Hydroxide/Mg Hydroxide (Magnesium Hydrox/Alum Hydrox 30 Ml Oral.Susp) 30 ml PO Q6H PRN PRN Reason: Heartburn/Nausea Last Admin: 09/17/23 14:03 Dose: 30 ml Amlodipine Besylate (Amlodipine Besylate 5 Mg Tablet) 5 mg PO DAILY [facility]; Protocol Last Admin: 09/21/23 08:14 Dose: 5 mg Atorvastatin Calcium (Atorvastatin Calcium 20 Mg Tablet) 20 mg PO DAILY [facility] Last Admin: 09/21/23 08:14 Dose: 20 mg Bupropion HCl (Bupropion Hcl Xl 150 Mg Tab.Er.24h) 150 mg PO DAILY [facility] Last Admin: 09/21/23 08:14 Dose: 150 mg Buspirone HCl (Buspirone Hcl 5 Mg Tablet) 5 mg PO BID [facility] Last Admin: 09/21/23 08:14 Dose: 5 mg Clonazepam (Clonazepam 0.5 Mg Tablet) 0.5 mg PO QID PRN PRN Reason: Anxiety Last Admin: 09/20/23 20:38 Dose: 0.5 mg Magnesium Hydroxide (Milk Of Magnesia 30 Ml Oral.Susp) 30 ml PO DAILY PRN PRN Reason: Constipation Last Admin: 09/16/23 08:27 Dose: 30 ml Meclizine HCl (Meclizine Hcl 25 Mg Tablet) 25 mg PO BID PRN PRN Reason: dizziness Mirtazapine (Mirtazapine 15 Mg Tablet) 15 mg PO BEDTIME [facility] Last Admin: 09/20/23 20:38 Dose: 15 mg Mirtazapine (Mirtazapine 15 Mg Tablet) 15 mg PO BEDTIME PRN PRN Reason: insomnia Last Admin: 09/20/23 01:48 Dose: 15 mg Omeprazole (Omeprazole 20 Mg Capsule.Dr) 20 mg PO BID@0630,1530 [facility] Last Admin: 09/21/23 06:21 Dose: 20 mg Polyethylene Glycol (Polyethylene Glycol 3350 17 Gm Powd.Pack) 17 gm PO DAILY PRN PRN Reason: Constipation Last Admin: 09/17/23 13:12 Dose: 17 gm Quetiapine Fumarate (Quetiapine Fumarate 100 Mg Tablet) 100 mg PO BEDTIME [facility] Last Admin: 09/20/23 20:38 Dose: 100 mg Sertraline HCl (Sertraline Hcl 50 Mg Tablet) 50 mg PO DAILY [facility] Last Admin: 09/21/23 08:13 Dose: 50 mg Allergies Allergies Allergy/AdvReac Type Severity Reaction Status Date / Time No Known Allergies Allergy Verified 09/14/23 17:49 Assessment & Plan Assessment & Plan (1) Anxiety disorder, unspecified: Status: Acute Code(s): F41.9 - Anxiety disorder, unspecified (2) Depression: Status: Acute Code(s): F32.A - Depression, unspecified (3) Cannabis abuse: Status: Acute Code(s): F12.10 - Cannabis abuse, uncomplicated (4) Cognitive disorder: Status: Acute Code(s): F09 - Unspecified mental disorder due to known physiological condition Plan 09/15: start remeron 7.5 QHS with repeat PRN for insomnia. plan to start SSRI soon. increase omeprazole for GERD Sx. best plan would be to taper klonopin, but will need to get control over anxiety some other way first and establish rapport first. cannabis POS utox noted, pt reported having only tried cannabis over the period of one month sufficiently long ago that she cannot recall quite how long ago it was. work with family on dispo. 09/16: add zoloft 50 mg daily for depression/anxiety. miralax PRN constipation. increase HS remeron to 15 mg. increase omep to 20 BID. otherwise continue current mgmt. 09/17: slept well last night. continues to c/o anxiety. informed of timeframe to expect improvement from sertraline. continue current mgmt. eval cognitive performance. 09/18 increase Seroquel up to 100 mg p.o. q.h.s.. 09/19 increase Klonopin to prn qid 09/20 Less anxious, with dizziness, tinnitus, decrease Klonopin to bid prn. Reason for continued inpatient stay Substantial Risk for: rapid decompensation Time Spent With Patient Time: Total time managing care of this patient today ____ minutes.
[2023-09-21 20:00] VITALS: BP 119/63; PULSE 62; RESP 18; TEMP 36; O2SAT 99
[2023-09-21] MEDS: Mirtazapine 15 MG TABLET PO ×2 (20:54→20:55)
[2023-09-21] MEDS: clonazePAM 0.5 MG TABLET PO (20:54)
[2023-09-21] MEDS: QUEtiapine Fumarate 100 MG TABLET PO (20:54)
[2023-09-22] MEDS: QUEtiapine Fumarate 50 MG TABLET PO (02:36)
[2023-09-22] MEDS: Omeprazole 20 MG CAPSULE.DR PO ×2 (06:13→15:19)
[2023-09-22 08:02] VITALS: BP 108/62; PULSE 94; RESP 18; TEMP 36.3; O2SAT 100
[2023-09-22 08:07] VITALS: BP 108/62
[2023-09-22] MEDS: Acetaminophen 325 MG TABLET 650 MG PO (08:07)
[2023-09-22] MEDS: Atorvastatin Calcium 20 MG TABLET PO (08:07)
[2023-09-22] MEDS: clonazePAM 0.5 MG TABLET PO ×2 (08:07→20:33)
[2023-09-22] MEDS: busPIRone HCl 5 MG TABLET PO ×2 (08:07→20:33)
[2023-09-22] MEDS: buPROPion HCl XL 150 MG TAB.ER.24H PO (08:07)
[2023-09-22] MEDS: amLODIPine Besylate 5 MG TABLET PO (08:07)
[2023-09-22] MEDS: Sertraline HCL 50 MG TABLET PO (08:07)
--- NOTE | 2023-09-22 15:37 | HO.PSYCHPN ---
Subjective Subjective Date of Service: 09/22/23 Reason For Visit: depression si instability Subjective Notes: Conditional Voluntary Interim History: The nursing staff reported the patient had been mostly the time depressed, slept 7 hours. On interview the patient reports that she feels depressed. She agreed and changes in her medication night Mental Status Exam Mental Status Exam Patient Appearance: Appropriate Patient Orientation: Person and Situation Level of Consciousness: Awake and Appropriate Patient Behavior: Guarded and Passive Mood Description: Withdrawn and Constricted Affect Description: Calm Patient Cognition Impaired: Yes Ability to Follow Directions: Good Speech Pattern: Clear Hallucinations: None Delusions: Not Present Thought Process: Distracted and Slowed Thinking Thought Content: positive for [place] and positive for Poverty of Content Judgement: Fair Diagnostics Vital Signs (24Hr): Vital Signs - 24 hr 09/21/23 20:00 09/22/23 08:02 09/22/23 08:07 Temperature 96.8 F 97.4 F Pulse Rate 62 94 Respiratory Rate 18 18 Blood Pressure 119/63 108/62 108/62 Pulse Oximetry 99 100 Oxygen Delivery Method Room Air Room Air BMI result Body Mass Index 23.3 Labs 09/14/23 18:14 09/15/23 14:06 Imaging Radiology Impressions: [facility] Impressions Head CT 09/14/23 18:46 IMPRESSION: No acute intracranial pathology. Medications Medications Current Medications Acetaminophen (Acetaminophen 325 Mg Tablet) 650 mg PO Q6H PRN PRN Reason: Headache/Pain Mild Scale (1-3) Last Admin: 09/22/23 08:07 Dose: 650 mg Al Hydroxide/Mg Hydroxide (Magnesium Hydrox/Alum Hydrox 30 Ml Oral.Susp) 30 ml PO Q6H PRN PRN Reason: Heartburn/Nausea Last Admin: 09/17/23 14:03 Dose: 30 ml Amlodipine Besylate (Amlodipine Besylate 5 Mg Tablet) 5 mg PO DAILY [facility]; Protocol Last Admin: 09/22/23 08:07 Dose: 5 mg Atorvastatin Calcium (Atorvastatin Calcium 20 Mg Tablet) 20 mg PO DAILY [facility] Last Admin: 09/22/23 08:07 Dose: 20 mg Bupropion HCl (Bupropion Hcl Xl 150 Mg Tab.Er.24h) 150 mg PO DAILY [facility] Last Admin: 09/22/23 08:07 Dose: 150 mg Buspirone HCl (Buspirone Hcl 5 Mg Tablet) 5 mg PO BID [facility] Last Admin: 09/22/23 08:07 Dose: 5 mg Clonazepam (Clonazepam 0.5 Mg Tablet) 0.5 mg PO BID PRN PRN Reason: Anxiety Last Admin: 09/22/23 08:07 Dose: 0.5 mg Magnesium Hydroxide (Milk Of Magnesia 30 Ml Oral.Susp) 30 ml PO DAILY PRN PRN Reason: Constipation Last Admin: 09/16/23 08:27 Dose: 30 ml Meclizine HCl (Meclizine Hcl 25 Mg Tablet) 25 mg PO BID PRN PRN Reason: dizziness Mirtazapine (Mirtazapine 15 Mg Tablet) 15 mg PO BEDTIME [facility] Last Admin: 09/21/23 20:54 Dose: 15 mg Mirtazapine (Mirtazapine 15 Mg Tablet) 15 mg PO BEDTIME PRN PRN Reason: insomnia Last Admin: 09/21/23 20:55 Dose: 15 mg Omeprazole (Omeprazole 20 Mg Capsule.Dr) 20 mg PO BID@0630,1530 [facility] Last Admin: 09/22/23 15:19 Dose: 20 mg Polyethylene Glycol (Polyethylene Glycol 3350 17 Gm Powd.Pack) 17 gm PO DAILY PRN PRN Reason: Constipation Last Admin: 09/17/23 13:12 Dose: 17 gm Sertraline HCl (Sertraline Hcl 50 Mg Tablet) 50 mg PO DAILY [facility] Last Admin: 09/22/23 08:07 Dose: 50 mg Allergies Allergies Allergy/AdvReac Type Severity Reaction Status Date / Time No Known Allergies Allergy Verified 09/14/23 17:49 Assessment & Plan Assessment & Plan (1) Anxiety disorder, unspecified: Status: Acute Code(s): F41.9 - Anxiety disorder, unspecified (2) Depression: Status: Acute Code(s): F32.A - Depression, unspecified (3) Cannabis abuse: Status: Acute Code(s): F12.10 - Cannabis abuse, uncomplicated (4) Cognitive disorder: Status: Acute Code(s): F09 - Unspecified mental disorder due to known physiological condition Plan 09/15: start remeron 7.5 QHS with repeat PRN for insomnia. plan to start SSRI soon. increase omeprazole for GERD Sx. best plan would be to taper klonopin, but will need to get control over anxiety some other way first and establish rapport first. cannabis POS utox noted, pt reported having only tried cannabis over the period of one month sufficiently long ago that she cannot recall quite how long ago it was. work with family on dispo. 09/16: add zoloft 50 mg daily for depression/anxiety. miralax PRN constipation. increase HS remeron to 15 mg. increase omep to 20 BID. otherwise continue current mgmt. 09/17: slept well last night. continues to c/o anxiety. informed of timeframe to expect improvement from sertraline. continue current mgmt. eval cognitive performance. 09/18 increase Seroquel up to 100 mg p.o. q.h.s.. 09/19 increase Klonopin to prn qid 09/20 Less anxious, with dizziness, tinnitus, decrease Klonopin to bid prn. 09/21 increase Seroquel up to 200 mg p.o. q.h.s. Reason for continued inpatient stay Substantial Risk for: inability to function, rapid decompensation and med/psych decompensation Time Spent With Patient Time: Total time managing care of this patient today __20__ minutes.
[2023-09-22 20:00] VITALS: BP 124/58; PULSE 59; RESP 20; TEMP 36.2; O2SAT 100
[2023-09-22] MEDS: Mirtazapine 15 MG TABLET PO ×2 (20:32→20:33)
[2023-09-22] MEDS: QUEtiapine Fumarate 200 MG TABLET PO (20:32)
[2023-09-23] MEDS: Omeprazole 20 MG CAPSULE.DR PO ×2 (06:02→15:43)
[2023-09-23 08:00] VITALS: BP 138/63; PULSE 72; RESP 18; TEMP 36.9; O2SAT 98
[2023-09-23] MEDS: amLODIPine Besylate 5 MG TABLET PO (08:24)
[2023-09-23] MEDS: Atorvastatin Calcium 20 MG TABLET PO (08:24)
[2023-09-23] MEDS: Sertraline HCL 50 MG TABLET PO (08:24)
[2023-09-23] MEDS: buPROPion HCl XL 150 MG TAB.ER.24H PO (08:24)
[2023-09-23] MEDS: busPIRone HCl 5 MG TABLET PO ×2 (08:24→21:01)
--- NOTE | 2023-09-23 13:54 | P.PNPSI_ITS ---
Subjective Subjective Date of Service: 09/23/23 Reason For Visit: depression si instability Subjective Notes: Conditional Voluntary Interim History: The nursing staff reported the patient had been anxious in the evening. She slept on and off. On interview the patient reports poor sleep, she felt a little dizzy in the morning since we increase Seroquel. We discussed options and she agreed to increase Remeron to target depression anxiety and insomnia. Mental Status Exam Mental Status Exam Patient Appearance: Appropriate Patient Orientation: Person and Situation Level of Consciousness: Awake and Appropriate Patient Behavior: Guarded and Passive Mood Description: Calm Affect Description: Constricted Patient Cognition Impaired: Yes Ability to Follow Directions: Good Speech Pattern: Clear Hallucinations: None Delusions: Not Present Thought Content: positive for [place] and positive for [place] Judgement: Fair Diagnostics Vital Signs (24Hr): Vital Signs - 24 hr 09/22/23 20:00 09/23/23 08:00 Temperature 97.2 F 98.4 F Pulse Rate 59 72 Respiratory Rate 20 18 Blood Pressure 124/58 L 138/63 Pulse Oximetry 100 98 Oxygen Delivery Method Room Air Room Air BMI result Body Mass Index 23.3 Labs 09/14/23 18:14 09/15/23 14:06 Imaging Radiology Impressions: [facility] Impressions Head CT 09/14/23 18:46 IMPRESSION: No acute intracranial pathology. Medications Medications Current Medications Acetaminophen (Acetaminophen 325 Mg Tablet) 650 mg PO Q6H PRN PRN Reason: Headache/Pain Mild Scale (1-3) Last Admin: 09/22/23 08:07 Dose: 650 mg Al Hydroxide/Mg Hydroxide (Magnesium Hydrox/Alum Hydrox 30 Ml Oral.Susp) 30 ml PO Q6H PRN PRN Reason: Heartburn/Nausea Last Admin: 09/17/23 14:03 Dose: 30 ml Amlodipine Besylate (Amlodipine Besylate 5 Mg Tablet) 5 mg PO DAILY [facility]; Protocol Last Admin: 09/23/23 08:24 Dose: 5 mg Atorvastatin Calcium (Atorvastatin Calcium 20 Mg Tablet) 20 mg PO DAILY [facility] Last Admin: 09/23/23 08:24 Dose: 20 mg Bupropion HCl (Bupropion Hcl Xl 150 Mg Tab.Er.24h) 150 mg PO DAILY [facility] Last Admin: 09/23/23 08:24 Dose: 150 mg Buspirone HCl (Buspirone Hcl 5 Mg Tablet) 5 mg PO BID [facility] Last Admin: 09/23/23 08:24 Dose: 5 mg Clonazepam (Clonazepam 0.5 Mg Tablet) 0.5 mg PO BID PRN PRN Reason: Anxiety Last Admin: 09/22/23 20:33 Dose: 0.5 mg Magnesium Hydroxide (Milk Of Magnesia 30 Ml Oral.Susp) 30 ml PO DAILY PRN PRN Reason: Constipation Last Admin: 09/16/23 08:27 Dose: 30 ml Meclizine HCl (Meclizine Hcl 25 Mg Tablet) 25 mg PO BID PRN PRN Reason: dizziness Mirtazapine (Mirtazapine 15 Mg Tablet) 15 mg PO BEDTIME PRN PRN Reason: insomnia Last Admin: 09/22/23 20:33 Dose: 15 mg Mirtazapine (Mirtazapine 30 Mg Tablet) 30 mg PO BEDTIME [facility] Omeprazole (Omeprazole 20 Mg Capsule.Dr) 20 mg PO BID@0630,1530 [facility] Last Admin: 09/23/23 06:02 Dose: 20 mg Polyethylene Glycol (Polyethylene Glycol 3350 17 Gm Powd.Pack) 17 gm PO DAILY PRN PRN Reason: Constipation Last Admin: 09/17/23 13:12 Dose: 17 gm Quetiapine Fumarate (Quetiapine Fumarate 200 Mg Tablet) 200 mg PO BEDTIME [facility] Last Admin: 09/22/23 20:32 Dose: 200 mg Sertraline HCl (Sertraline Hcl 50 Mg Tablet) 50 mg PO DAILY [facility] Last Admin: 09/23/23 08:24 Dose: 50 mg Allergies Allergies Allergy/AdvReac Type Severity Reaction Status Date / Time No Known Allergies Allergy Verified 09/14/23 17:49 Assessment & Plan Assessment & Plan (1) Anxiety disorder, unspecified: Status: Acute Code(s): F41.9 - Anxiety disorder, unspecified (2) Depression: Status: Acute Code(s): F32.A - Depression, unspecified (3) Cannabis abuse: Status: Acute Code(s): F12.10 - Cannabis abuse, uncomplicated (4) Cognitive disorder: Status: Acute Code(s): F09 - Unspecified mental disorder due to known physiological condition Plan 09/15: start remeron 7.5 QHS with repeat PRN for insomnia. plan to start SSRI soon. increase omeprazole for GERD Sx. best plan would be to taper klonopin, but will need to get control over anxiety some other way first and establish rapport first. cannabis POS utox noted, pt reported having only tried cannabis over the period of one month sufficiently long ago that she cannot recall quite how long ago it was. work with family on dispo. 09/16: add zoloft 50 mg daily for depression/anxiety. miralax PRN constipation. increase HS remeron to 15 mg. increase omep to 20 BID. otherwise continue current mgmt. 09/17: slept well last night. continues to c/o anxiety. informed of timeframe to expect improvement from sertraline. continue current mgmt. eval cognitive performance. 09/18 increase Seroquel up to 100 mg p.o. q.h.s.. 09/19 increase Klonopin to prn qid 09/20 Less anxious, with dizziness, tinnitus, decrease Klonopin to bid prn. 09/21 increase Seroquel up to 200 mg p.o. q.h.s. 09/21 increase Remeron up to 30 mg p.o. q.h.s. Reason for continued inpatient stay Substantial Risk for: inability to function, rapid decompensation and med/psych decompensation Time Spent With Patient Time: Total time managing care of this patient today __20__ minutes.
[2023-09-23] MEDS: Meclizine HCl 25 MG TABLET PO (16:03)
[2023-09-23 20:00] VITALS: BP 132/69; PULSE 64; RESP 16; TEMP 36.3; O2SAT 99
[2023-09-23] MEDS: Mirtazapine 30 MG TABLET PO (21:01)
[2023-09-23] MEDS: QUEtiapine Fumarate 200 MG TABLET PO (21:01)
[2023-09-23] MEDS: Mirtazapine 15 MG TABLET PO (23:30)
[2023-09-23] MEDS: clonazePAM 0.5 MG TABLET PO (23:30)
[2023-09-24] MEDS: Omeprazole 20 MG CAPSULE.DR PO ×2 (06:13→15:02)
[2023-09-24 07:55] VITALS: BP 158/79; PULSE 78; RESP 18; TEMP 36.6; O2SAT 100
[2023-09-24] MEDS: Atorvastatin Calcium 20 MG TABLET PO (08:25)
[2023-09-24] MEDS: Sertraline HCL 50 MG TABLET PO (08:25)
[2023-09-24] MEDS: busPIRone HCl 5 MG TABLET PO ×3 (08:25→20:46)
[2023-09-24] MEDS: Meclizine HCl 25 MG TABLET PO (08:25)
[2023-09-24] MEDS: amLODIPine Besylate 5 MG TABLET PO (08:25)
[2023-09-24] MEDS: buPROPion HCl XL 150 MG TAB.ER.24H PO (08:25)
--- NOTE | 2023-09-24 15:39 | HO.PSYCHPN ---
Subjective Subjective Date of Service: 09/24/23 Reason For Visit: depression si instability Subjective Notes: Conditional Voluntary Interim History: The nursing staff reported the patient had been tearful at times, she slept only 6 hours. She took meclizine p.r.n. for dizziness. On interview the patient reports that she can not sleep, she had been requesting Klonopin. We are going to add 1 dose at night. Mental Status Exam Mental Status Exam Patient Appearance: Appropriate Patient Orientation: Person and Situation Level of Consciousness: Awake and Appropriate Patient Behavior: Guarded and Passive Mood Description: Withdrawn Affect Description: Constricted Patient Cognition Impaired: Yes Ability to Follow Directions: Good Speech Pattern: Clear Hallucinations: None Delusions: Ideas of Reference Thought Process: Distracted and Slowed Thinking Thought Content: positive for [place] and positive for Poverty of Content Judgement: Poor Diagnostics Vital Signs (24Hr): Vital Signs - 24 hr 09/23/23 20:00 09/24/23 07:55 Temperature 97.4 F 97.9 F Pulse Rate 64 78 Respiratory Rate 16 18 Blood Pressure 132/69 158/79 H Pulse Oximetry 99 100 Oxygen Delivery Method Room Air Room Air BMI result Body Mass Index 23.3 Labs 09/14/23 18:14 09/15/23 14:06 Imaging Radiology Impressions: [facility] Impressions Head CT 09/14/23 18:46 IMPRESSION: No acute intracranial pathology. Medications Medications Current Medications Acetaminophen (Acetaminophen 325 Mg Tablet) 650 mg PO Q6H PRN PRN Reason: Headache/Pain Mild Scale (1-3) Last Admin: 09/22/23 08:07 Dose: 650 mg Al Hydroxide/Mg Hydroxide (Magnesium Hydrox/Alum Hydrox 30 Ml Oral.Susp) 30 ml PO Q6H PRN PRN Reason: Heartburn/Nausea Last Admin: 09/17/23 14:03 Dose: 30 ml Amlodipine Besylate (Amlodipine Besylate 5 Mg Tablet) 5 mg PO DAILY [facility]; Protocol Last Admin: 09/24/23 08:25 Dose: 5 mg Atorvastatin Calcium (Atorvastatin Calcium 20 Mg Tablet) 20 mg PO DAILY [facility] Last Admin: 09/24/23 08:25 Dose: 20 mg Bupropion HCl (Bupropion Hcl Xl 150 Mg Tab.Er.24h) 150 mg PO DAILY [facility] Last Admin: 09/24/23 08:25 Dose: 150 mg Buspirone HCl (Buspirone Hcl 5 Mg Tablet) 5 mg PO TID [facility] Last Admin: 09/24/23 15:03 Dose: 5 mg Clonazepam (Clonazepam 0.5 Mg Tablet) 0.5 mg PO BID PRN PRN Reason: Anxiety Last Admin: 09/23/23 23:30 Dose: 0.5 mg Magnesium Hydroxide (Milk Of Magnesia 30 Ml Oral.Susp) 30 ml PO DAILY PRN PRN Reason: Constipation Last Admin: 09/16/23 08:27 Dose: 30 ml Meclizine HCl (Meclizine Hcl 25 Mg Tablet) 25 mg PO BID PRN PRN Reason: dizziness Last Admin: 09/24/23 08:25 Dose: 25 mg Mirtazapine (Mirtazapine 15 Mg Tablet) 15 mg PO BEDTIME PRN PRN Reason: insomnia Last Admin: 09/23/23 23:30 Dose: 15 mg Mirtazapine (Mirtazapine 30 Mg Tablet) 30 mg PO BEDTIME [facility] Last Admin: 09/23/23 21:01 Dose: 30 mg Omeprazole (Omeprazole 20 Mg Capsule.Dr) 20 mg PO BID@0630,1530 [facility] Last Admin: 09/24/23 15:02 Dose: 20 mg Polyethylene Glycol (Polyethylene Glycol 3350 17 Gm Powd.Pack) 17 gm PO DAILY PRN PRN Reason: Constipation Last Admin: 09/17/23 13:12 Dose: 17 gm Quetiapine Fumarate (Quetiapine Fumarate 200 Mg Tablet) 200 mg PO BEDTIME [facility] Last Admin: 09/23/23 21:01 Dose: 200 mg Sertraline HCl (Sertraline Hcl 50 Mg Tablet) 50 mg PO DAILY [facility] Last Admin: 09/24/23 08:25 Dose: 50 mg Allergies Allergies Allergy/AdvReac Type Severity Reaction Status Date / Time No Known Allergies Allergy Verified 09/14/23 17:49 Assessment & Plan Assessment & Plan (1) Anxiety disorder, unspecified: Status: Acute Code(s): F41.9 - Anxiety disorder, unspecified (2) Depression: Status: Acute Code(s): F32.A - Depression, unspecified (3) Cannabis abuse: Status: Acute Code(s): F12.10 - Cannabis abuse, uncomplicated (4) Cognitive disorder: Status: Acute Code(s): F09 - Unspecified mental disorder due to known physiological condition Plan 09/15: start remeron 7.5 QHS with repeat PRN for insomnia. plan to start SSRI soon. increase omeprazole for GERD Sx. best plan would be to taper klonopin, but will need to get control over anxiety some other way first and establish rapport first. cannabis POS utox noted, pt reported having only tried cannabis over the period of one month sufficiently long ago that she cannot recall quite how long ago it was. work with family on dispo. 09/16: add zoloft 50 mg daily for depression/anxiety. miralax PRN constipation. increase HS remeron to 15 mg. increase omep to 20 BID. otherwise continue current mgmt. 09/17: slept well last night. continues to c/o anxiety. informed of timeframe to expect improvement from sertraline. continue current mgmt. eval cognitive performance. 09/18 increase Seroquel up to 100 mg p.o. q.h.s.. 09/19 increase Klonopin to prn qid 09/20 Less anxious, with dizziness, tinnitus, decrease Klonopin to bid prn. 09/21 increase Seroquel up to 200 mg p.o. q.h.s. 09/21 increase Remeron up to 30 mg p.o. q.h.s. 09/23 add Klonopin 0.5 at bedtime. Reason for continued inpatient stay Substantial Risk for: inability to function, rapid decompensation and med/psych decompensation Time Spent With Patient Time: Total time managing care of this patient today __20__ minutes.
[2023-09-24 20:00] VITALS: BP 134/90; PULSE 63; RESP 18; TEMP 36.8; O2SAT 100
[2023-09-24] MEDS: clonazePAM 0.5 MG TABLET PO (20:46)
[2023-09-24] MEDS: QUEtiapine Fumarate 200 MG TABLET PO (20:46)
[2023-09-24] MEDS: Mirtazapine 30 MG TABLET PO (20:46)
[2023-09-25] MEDS: Omeprazole 20 MG CAPSULE.DR PO ×2 (06:08→14:30)
[2023-09-25 07:00] VITALS: BMI 23.5
[2023-09-25 07:55] VITALS: BP 122/80; PULSE 85; RESP 18; TEMP 36.4; O2SAT 98
[2023-09-25] MEDS: amLODIPine Besylate 5 MG TABLET PO (08:00)
[2023-09-25] MEDS: Atorvastatin Calcium 20 MG TABLET PO (08:01)
[2023-09-25] MEDS: Meclizine HCl 25 MG TABLET PO (08:01)
[2023-09-25] MEDS: buPROPion HCl XL 150 MG TAB.ER.24H PO (08:01)
[2023-09-25] MEDS: busPIRone HCl 5 MG TABLET PO ×3 (08:01→20:35)
[2023-09-25] MEDS: Sertraline HCL 50 MG TABLET PO (08:01)
--- NOTE | 2023-09-25 11:35 | P.PNPSI_ITS ---
Subjective Subjective Date of Service: 09/25/23 Reason For Visit: depression si instability Subjective Notes: Conditional Voluntary Interim History: Pt slept through the night. Pt denies depressed mood or anxious mood. She reports her sleep significantly improved with clonazepam. Pt reports dizziness when standing up. No spinning of room but she does report benefit from meclizine. No signs of orthostatic changes. No SI/HI. Review of Systems Review of Systems dizziness, tinnitus Constitutional: Denies body ache(s), Denies chills, Denies fever(s) and Denies headache(s) Eyes: Denies blurry vision Denies vertigo, Denies dizziness, Denies dry mouth and Denies headache(s) Cardiovascular: Denies chest pain and Denies dyspnea Respiratory: Denies cough and Denies dyspnea Gastrointestinal: Denies abdominal pain, Denies nausea and Denies vomiting Musculoskeletal: Denies back pain Skin/Breast: Denies rash Denies vertigo, Denies dizziness, Denies headache(s) and Reports memory loss Psychiatric: Reports anxiety, Reports depression, Reports irritability, Reports anhedonia, Reports memory loss, Reports mood swings, Reports panic attacks, Reports paranoia and Reports suicidal ideation Mental Status Exam Mental Status Exam Patient Appearance: Appropriate Patient Orientation: Person and Situation Level of Consciousness: Awake and Appropriate Patient Behavior: Guarded and Passive Mood Description: Withdrawn Affect Description: Constricted Patient Cognition Impaired: Yes Ability to Follow Directions: Good Speech Pattern: Clear Diagnostics Vital Signs (24Hr): Vital Signs - 24 hr 09/24/23 20:00 09/25/23 07:55 Temperature 98.3 F 97.5 F Pulse Rate 63 85 Respiratory Rate 18 18 Blood Pressure 134/90 H 122/80 Pulse Oximetry 100 98 Oxygen Delivery Method Room Air Room Air BMI result Body Mass Index 23.5 Labs 09/14/23 18:14 09/15/23 14:06 Imaging Radiology Impressions: ITS Impressions Head CT 09/14/23 18:46 IMPRESSION: No acute intracranial pathology. Medications Medications Current Medications Acetaminophen (Acetaminophen 325 Mg Tablet) 650 mg PO Q6H PRN PRN Reason: Headache/Pain Mild Scale (1-3) Last Admin: 09/22/23 08:07 Dose: 650 mg Al Hydroxide/Mg Hydroxide (Magnesium Hydrox/Alum Hydrox 30 Ml Oral.Susp) 30 ml PO Q6H PRN PRN Reason: Heartburn/Nausea Last Admin: 09/17/23 14:03 Dose: 30 ml Amlodipine Besylate (Amlodipine Besylate 5 Mg Tablet) 5 mg PO DAILY [facility]; Protocol Last Admin: 09/25/23 08:00 Dose: 5 mg Atorvastatin Calcium (Atorvastatin Calcium 20 Mg Tablet) 20 mg PO DAILY [facility] Last Admin: 09/25/23 08:01 Dose: 20 mg Bupropion HCl (Bupropion Hcl Xl 150 Mg Tab.Er.24h) 150 mg PO DAILY [facility] Last Admin: 09/25/23 08:01 Dose: 150 mg Buspirone HCl (Buspirone Hcl 5 Mg Tablet) 5 mg PO TID [facility] Last Admin: 09/25/23 08:01 Dose: 5 mg Clonazepam (Clonazepam 0.5 Mg Tablet) 0.5 mg PO BID PRN PRN Reason: Anxiety Last Admin: 09/23/23 23:30 Dose: 0.5 mg Clonazepam (Clonazepam 0.5 Mg Tablet) 0.5 mg PO BEDTIME [facility] Last Admin: 09/24/23 20:46 Dose: 0.5 mg Magnesium Hydroxide (Milk Of Magnesia 30 Ml Oral.Susp) 30 ml PO DAILY PRN PRN Reason: Constipation Last Admin: 09/16/23 08:27 Dose: 30 ml Meclizine HCl (Meclizine Hcl 25 Mg Tablet) 25 mg PO BID PRN PRN Reason: dizziness Last Admin: 09/25/23 08:01 Dose: 25 mg Mirtazapine (Mirtazapine 15 Mg Tablet) 15 mg PO BEDTIME PRN PRN Reason: insomnia Last Admin: 09/23/23 23:30 Dose: 15 mg Mirtazapine (Mirtazapine 30 Mg Tablet) 30 mg PO BEDTIME [facility] Last Admin: 09/24/23 20:46 Dose: 30 mg Omeprazole (Omeprazole 20 Mg Capsule.Dr) 20 mg PO BID@0630,1530 [facility] Last Admin: 09/25/23 06:08 Dose: 20 mg Polyethylene Glycol (Polyethylene Glycol 3350 17 Gm Powd.Pack) 17 gm PO DAILY PRN PRN Reason: Constipation Last Admin: 09/17/23 13:12 Dose: 17 gm Quetiapine Fumarate (Quetiapine Fumarate 200 Mg Tablet) 200 mg PO BEDTIME [facility] Last Admin: 09/24/23 20:46 Dose: 200 mg Sertraline HCl (Sertraline Hcl 50 Mg Tablet) 50 mg PO DAILY [facility] Last Admin: 09/25/23 08:01 Dose: 50 mg Allergies Allergies Allergy/AdvReac Type Severity Reaction Status Date / Time No Known Allergies Allergy Verified 09/14/23 17:49 Assessment & Plan Assessment & Plan (1) Anxiety disorder, unspecified: Status: Acute Code(s): F41.9 - Anxiety disorder, unspecified (2) Depression: Status: Acute Code(s): F32.A - Depression, unspecified (3) Cannabis abuse: Status: Acute Code(s): F12.10 - Cannabis abuse, uncomplicated (4) Cognitive disorder: Status: Acute Code(s): F09 - Unspecified mental disorder due to known physiological condition Plan 09/15: start remeron 7.5 QHS with repeat PRN for insomnia. plan to start SSRI soon. increase omeprazole for GERD Sx. best plan would be to taper klonopin, but will need to get control over anxiety some other way first and establish rapport first. cannabis POS utox noted, pt reported having only tried cannabis over the period of one month sufficiently long ago that she cannot recall quite how long ago it was. work with family on [employer]. 09/16: add zoloft 50 mg daily for depression/anxiety. miralax PRN constipation. increase HS remeron to 15 mg. increase omep to 20 BID. otherwise continue current mgmt. 09/17: slept well last night. continues to c/o anxiety. informed of timeframe to expect improvement from sertraline. continue current mgmt. eval cognitive performance. 09/18 increase Seroquel up to 100 mg p.o. q.h.s.. 09/19 increase Klonopin to prn qid 09/20 Less anxious, with dizziness, tinnitus, decrease Klonopin to bid prn. 09/21 increase Seroquel up to 200 mg p.o. q.h.s. 09/21 increase Remeron up to 30 mg p.o. q.h.s. 09/23 add Klonopin 0.5 at bedtime. 09/24 continue tx. Reason for continued inpatient stay Substantial Risk for: inability to function Time Spent With Patient Time: Total time managing care of this patient today ____ minutes.
[2023-09-25 20:00] VITALS: BP 146/76; PULSE 68; RESP 18; TEMP 36.7; O2SAT 99
[2023-09-25] MEDS: clonazePAM 0.5 MG TABLET PO (20:35)
[2023-09-25] MEDS: QUEtiapine Fumarate 200 MG TABLET PO (20:35)
[2023-09-25] MEDS: Mirtazapine 30 MG TABLET PO (20:35)
[2023-09-26] MEDS: Omeprazole 20 MG CAPSULE.DR PO ×2 (05:44→15:12)
[2023-09-26] MEDS: Acetaminophen 325 MG TABLET 650 MG PO (05:48)
[2023-09-26] MEDS: Meclizine HCl 25 MG TABLET PO (06:25)
[2023-09-26 08:00] VITALS: BP 126/76; PULSE 75; RESP 17; TEMP 36.1; O2SAT 100
[2023-09-26] MEDS: amLODIPine Besylate 5 MG TABLET PO (08:17)
[2023-09-26] MEDS: Sertraline HCL 50 MG TABLET PO (08:17)
[2023-09-26] MEDS: busPIRone HCl 5 MG TABLET PO ×3 (08:17→20:38)
[2023-09-26] MEDS: Atorvastatin Calcium 20 MG TABLET PO (08:17)
[2023-09-26] MEDS: buPROPion HCl XL 150 MG TAB.ER.24H PO (08:17)
--- NOTE | 2023-09-26 15:21 | HO.PSYCHPN ---
Subjective Subjective Date of Service: 09/26/23 Reason For Visit: depression si instability Subjective Notes: Conditional Voluntary Interim History: The nursing staff reported the patient was pleasant, no changes in her mental status state most of the time in her bed. She slept 7 hours and stated that the Klonopin at night help. On interview the patient denies new symptoms, reports improvement of mood with better still with Klonopin at night. Mental Status Exam Mental Status Exam Patient Appearance: Appropriate Patient Orientation: Person and Situation Level of Consciousness: Awake and Appropriate Patient Behavior: Guarded and Passive Mood Description: Withdrawn Affect Description: Constricted Patient Cognition Impaired: Yes Ability to Follow Directions: Good Speech Pattern: Clear Hallucinations: None Delusions: Not Present Thought Process: Distracted and Slowed Thinking Thought Content: positive for [place] and positive for Poverty of Content Judgement: Poor Diagnostics Vital Signs (24Hr): Vital Signs - 24 hr 09/25/23 20:00 09/26/23 08:00 Temperature 98.1 F 97.0 F Pulse Rate 68 75 Respiratory Rate 18 17 Blood Pressure 146/76 H 126/76 Pulse Oximetry 99 100 Oxygen Delivery Method Room Air Room Air BMI result Body Mass Index 23.5 Labs 09/14/23 18:14 09/15/23 14:06 Imaging Radiology Impressions: ITS Impressions Head CT 09/14/23 18:46 IMPRESSION: No acute intracranial pathology. Medications Medications Current Medications Acetaminophen (Acetaminophen 325 Mg Tablet) 650 mg PO Q6H PRN PRN Reason: Headache/Pain Mild Scale (1-3) Last Admin: 09/26/23 05:48 Dose: 650 mg Al Hydroxide/Mg Hydroxide (Magnesium Hydrox/Alum Hydrox 30 Ml Oral.Susp) 30 ml PO Q6H PRN PRN Reason: Heartburn/Nausea Last Admin: 09/17/23 14:03 Dose: 30 ml Amlodipine Besylate (Amlodipine Besylate 5 Mg Tablet) 5 mg PO DAILY [facility]; Protocol Last Admin: 09/26/23 08:17 Dose: 5 mg Atorvastatin Calcium (Atorvastatin Calcium 20 Mg Tablet) 20 mg PO DAILY [facility] Last Admin: 09/26/23 08:17 Dose: 20 mg Bupropion HCl (Bupropion Hcl Xl 150 Mg Tab.Er.24h) 150 mg PO DAILY [facility] Last Admin: 09/26/23 08:17 Dose: 150 mg Buspirone HCl (Buspirone Hcl 5 Mg Tablet) 5 mg PO TID [facility] Last Admin: 09/26/23 14:19 Dose: 5 mg Clonazepam (Clonazepam 0.5 Mg Tablet) 0.5 mg PO BID PRN PRN Reason: Anxiety Last Admin: 09/23/23 23:30 Dose: 0.5 mg Clonazepam (Clonazepam 0.5 Mg Tablet) 0.5 mg PO BEDTIME [facility] Last Admin: 09/25/23 20:35 Dose: 0.5 mg Magnesium Hydroxide (Milk Of Magnesia 30 Ml Oral.Susp) 30 ml PO DAILY PRN PRN Reason: Constipation Last Admin: 09/16/23 08:27 Dose: 30 ml Meclizine HCl (Meclizine Hcl 25 Mg Tablet) 25 mg PO BID PRN PRN Reason: dizziness Last Admin: 09/26/23 06:25 Dose: 25 mg Mirtazapine (Mirtazapine 30 Mg Tablet) 30 mg PO BEDTIME [facility] Last Admin: 09/25/23 20:35 Dose: 30 mg Omeprazole (Omeprazole 20 Mg Capsule.Dr) 20 mg PO BID@0630,1530 [facility] Last Admin: 09/26/23 15:12 Dose: 20 mg Polyethylene Glycol (Polyethylene Glycol 3350 17 Gm Powd.Pack) 17 gm PO DAILY PRN PRN Reason: Constipation Last Admin: 09/17/23 13:12 Dose: 17 gm Quetiapine Fumarate (Quetiapine Fumarate 200 Mg Tablet) 200 mg PO BEDTIME [facility] Last Admin: 09/25/23 20:35 Dose: 200 mg Sertraline HCl (Sertraline Hcl 50 Mg Tablet) 50 mg PO DAILY [facility] Last Admin: 09/26/23 08:17 Dose: 50 mg Allergies Allergies Allergy/AdvReac Type Severity Reaction Status Date / Time No Known Allergies Allergy Verified 09/14/23 17:49 Assessment & Plan Assessment & Plan (1) Anxiety disorder, unspecified: Status: Acute Code(s): F41.9 - Anxiety disorder, unspecified (2) Depression: Status: Acute Code(s): F32.A - Depression, unspecified (3) Cannabis abuse: Status: Acute Code(s): F12.10 - Cannabis abuse, uncomplicated (4) Cognitive disorder: Status: Acute Code(s): F09 - Unspecified mental disorder due to known physiological condition Plan 09/15: start remeron 7.5 QHS with repeat PRN for insomnia. plan to start SSRI soon. increase omeprazole for GERD Sx. best plan would be to taper klonopin, but will need to get control over anxiety some other way first and establish rapport first. cannabis POS utox noted, pt reported having only tried cannabis over the period of one month sufficiently long ago that she cannot recall quite how long ago it was. work with family on dispo. 09/16: add zoloft 50 mg daily for depression/anxiety. miralax PRN constipation. increase HS remeron to 15 mg. increase omep to 20 BID. otherwise continue current mgmt. 09/17: slept well last night. continues to c/o anxiety. informed of timeframe to expect improvement from sertraline. continue current mgmt. eval cognitive performance. 09/18 increase Seroquel up to 100 mg p.o. q.h.s.. 09/19 increase Klonopin to prn qid 09/20 Less anxious, with dizziness, tinnitus, decrease Klonopin to bid prn. 09/21 increase Seroquel up to 200 mg p.o. q.h.s. 09/21 increase Remeron up to 30 mg p.o. q.h.s. 09/23 add Klonopin 0.5 at bedtime. 09/24 continue tx. 09/25 continue same treatment Reason for continued inpatient stay Substantial Risk for: inability to function, rapid decompensation and med/psych decompensation Time Spent With Patient Time: Total time managing care of this patient today __20__ minutes.
[2023-09-26 20:00] VITALS: BP 113/76; PULSE 67; RESP 16; TEMP 36.8; O2SAT 99
[2023-09-26] MEDS: QUEtiapine Fumarate 200 MG TABLET PO (20:37)
[2023-09-26] MEDS: Mirtazapine 30 MG TABLET PO (20:37)
[2023-09-26] MEDS: clonazePAM 0.5 MG TABLET PO (20:37)
[2023-09-27 08:29] VITALS: BP 135/61; PULSE 76; RESP 16; TEMP 36.7; O2SAT 100
[2023-09-27] MEDS: Atorvastatin Calcium 20 MG TABLET PO (08:33)
[2023-09-27] MEDS: Sertraline HCL 50 MG TABLET PO (08:33)
[2023-09-27] MEDS: Omeprazole 20 MG CAPSULE.DR PO ×2 (08:33→15:16)
[2023-09-27] MEDS: buPROPion HCl XL 150 MG TAB.ER.24H PO (08:33)
[2023-09-27] MEDS: busPIRone HCl 5 MG TABLET PO ×3 (08:33→20:04)
[2023-09-27] MEDS: amLODIPine Besylate 5 MG TABLET PO (08:33)
[2023-09-27] MEDS: clonazePAM 0.5 MG TABLET PO ×2 (10:37→20:05)
--- NOTE | 2023-09-27 18:46 | P.PNPSI_ITS ---
Subjective Subjective Date of Service: 09/27/23 Reason For Visit: depression si instability Interim History: Met with patient; discussed with team Patient pleasant on approach. Was very anxious this morning had a panic attack but clonazepam was helpful. Mental Status Exam Mental Status Exam Patient Appearance: Appropriate Patient Orientation: Person and Situation Level of Consciousness: Awake and Appropriate Patient Behavior: Guarded and Passive Mood Description: Withdrawn Affect Description: Constricted Patient Cognition Impaired: Yes Ability to Follow Directions: Good Speech Pattern: Clear Hallucinations: None Delusions: Not Present Thought Process: Distracted and Slowed Thinking Thought Content: positive for [place] and positive for Poverty of Content Judgement: Poor Diagnostics Vital Signs (24Hr): Vital Signs - 24 hr 09/26/23 20:00 09/27/23 08:29 Temperature 98.3 F 98.1 F Pulse Rate 67 76 Respiratory Rate 16 16 Blood Pressure 113/76 135/61 Pulse Oximetry 99 100 Oxygen Delivery Method Room Air Room Air BMI result Body Mass Index 23.5 Labs 09/14/23 18:14 09/15/23 14:06 Imaging Radiology Impressions: ITS Impressions Head CT 09/14/23 18:46 IMPRESSION: No acute intracranial pathology. Medications Medications Current Medications Acetaminophen (Acetaminophen 325 Mg Tablet) 650 mg PO Q6H PRN PRN Reason: Headache/Pain Mild Scale (1-3) Last Admin: 09/26/23 05:48 Dose: 650 mg Al Hydroxide/Mg Hydroxide (Magnesium Hydrox/Alum Hydrox 30 Ml Oral.Susp) 30 ml PO Q6H PRN PRN Reason: Heartburn/Nausea Last Admin: 09/17/23 14:03 Dose: 30 ml Amlodipine Besylate (Amlodipine Besylate 5 Mg Tablet) 5 mg PO DAILY [facility]; Protocol Last Admin: 09/27/23 08:33 Dose: 5 mg Atorvastatin Calcium (Atorvastatin Calcium 20 Mg Tablet) 20 mg PO DAILY [facility] Last Admin: 09/27/23 08:33 Dose: 20 mg Bupropion HCl (Bupropion Hcl Xl 150 Mg Tab.Er.24h) 150 mg PO DAILY [facility] Last Admin: 09/27/23 08:33 Dose: 150 mg Buspirone HCl (Buspirone Hcl 5 Mg Tablet) 5 mg PO TID [facility] Last Admin: 09/27/23 15:16 Dose: 5 mg Clonazepam (Clonazepam 0.5 Mg Tablet) 0.5 mg PO BEDTIME [facility] Last Admin: 09/26/23 20:37 Dose: 0.5 mg Clonazepam (Clonazepam 0.5 Mg Tablet) 0.5 mg PO BID PRN PRN Reason: Anxiety Last Admin: 09/27/23 10:37 Dose: 0.5 mg Magnesium Hydroxide (Milk Of Magnesia 30 Ml Oral.Susp) 30 ml PO DAILY PRN PRN Reason: Constipation Last Admin: 09/16/23 08:27 Dose: 30 ml Meclizine HCl (Meclizine Hcl 25 Mg Tablet) 25 mg PO BID PRN PRN Reason: dizziness Last Admin: 09/26/23 06:25 Dose: 25 mg Mirtazapine (Mirtazapine 30 Mg Tablet) 30 mg PO BEDTIME [facility] Last Admin: 09/26/23 20:37 Dose: 30 mg Omeprazole (Omeprazole 20 Mg Capsule.Dr) 20 mg PO BID@0630,1530 [facility] Last Admin: 09/27/23 15:16 Dose: 20 mg Polyethylene Glycol (Polyethylene Glycol 3350 17 Gm Powd.Pack) 17 gm PO DAILY PRN PRN Reason: Constipation Last Admin: 09/17/23 13:12 Dose: 17 gm Quetiapine Fumarate (Quetiapine Fumarate 200 Mg Tablet) 200 mg PO BEDTIME [facility] Last Admin: 09/26/23 20:37 Dose: 200 mg Sertraline HCl (Sertraline Hcl 50 Mg Tablet) 50 mg PO DAILY [facility] Last Admin: 09/27/23 08:33 Dose: 50 mg Allergies Allergies Allergy/AdvReac Type Severity Reaction Status Date / Time No Known Allergies Allergy Verified 09/14/23 17:49 Assessment & Plan Assessment & Plan (1) Anxiety disorder, unspecified: Status: Acute Code(s): F41.9 - Anxiety disorder, unspecified (2) Depression: Status: Acute Code(s): F32.A - Depression, unspecified (3) Cannabis abuse: Status: Acute Code(s): F12.10 - Cannabis abuse, uncomplicated (4) Cognitive disorder: Status: Acute Code(s): F09 - Unspecified mental disorder due to known physiological condition Plan 09/15: start remeron 7.5 QHS with repeat PRN for insomnia. plan to start SSRI soon. increase omeprazole for GERD Sx. best plan would be to taper klonopin, but will need to get control over anxiety some other way first and establish rapport first. cannabis POS utox noted, pt reported having only tried cannabis over the period of one month sufficiently long ago that she cannot recall quite how long ago it was. work with family on dispo. 09/16: add zoloft 50 mg daily for depression/anxiety. miralax PRN constipation. increase HS remeron to 15 mg. increase omep to 20 BID. otherwise continue current mgmt. 09/17: slept well last night. continues to c/o anxiety. informed of timeframe to expect improvement from sertraline. continue current mgmt. eval cognitive performance. 09/18 increase Seroquel up to 100 mg p.o. q.h.s.. 09/19 increase Klonopin to prn qid 09/20 Less anxious, with dizziness, tinnitus, decrease Klonopin to bid prn. 09/21 increase Seroquel up to 200 mg p.o. q.h.s. 09/21 increase Remeron up to 30 mg p.o. q.h.s. 09/23 add Klonopin 0.5 at bedtime. 09/24 continue tx. 09/25 continue same treatment 09/26 continue treatment plan; restarted clonazepam which fell off Reason for continued inpatient stay Substantial Risk for: inability to function Time Spent With Patient Time: Total time managing care of this patient today ____ minutes.
[2023-09-27 20:00] VITALS: BP 145/64; PULSE 79; RESP 16; TEMP 36.6; O2SAT 100
[2023-09-27] MEDS: Mirtazapine 30 MG TABLET PO (20:04)
[2023-09-27] MEDS: QUEtiapine Fumarate 200 MG TABLET PO (20:05)
[2023-09-28] MEDS: Omeprazole 20 MG CAPSULE.DR PO ×2 (06:17→15:23)
[2023-09-28 07:53] VITALS: BP 134/61; PULSE 64; RESP 18; TEMP 36.4; O2SAT 100
[2023-09-28] MEDS: buPROPion HCl XL 150 MG TAB.ER.24H PO (07:54)
[2023-09-28] MEDS: busPIRone HCl 5 MG TABLET PO ×3 (07:54→20:43)
[2023-09-28] MEDS: Atorvastatin Calcium 20 MG TABLET PO (07:54)
[2023-09-28] MEDS: amLODIPine Besylate 5 MG TABLET PO (07:55)
[2023-09-28] MEDS: clonazePAM 0.5 MG TABLET PO ×3 (07:55→23:44)
[2023-09-28] MEDS: Sertraline HCL 50 MG TABLET PO (07:55)
--- NOTE | 2023-09-28 16:49 | HO.PSYCHPN ---
Subjective Subjective Date of Service: 09/28/23 Reason For Visit: depression si instability Interim History: Met with patient; discussed with team Patient reports that she is okay... A lot better.. No other problems or complaints Mental Status Exam Mental Status Exam Patient Appearance: Appropriate Patient Orientation: Person and Situation Level of Consciousness: Awake and Appropriate Patient Behavior: Guarded and Passive Mood Description: Withdrawn Affect Description: Constricted Patient Cognition Impaired: Yes Ability to Follow Directions: Good Speech Pattern: Clear Hallucinations: None Delusions: Not Present Thought Process: Distracted and Slowed Thinking Thought Content: positive for [place] and positive for Poverty of Content Judgement: Poor Diagnostics Vital Signs (24Hr): Vital Signs - 24 hr 09/27/23 20:00 09/28/23 07:53 Temperature 97.9 F 97.6 F Pulse Rate 79 64 Respiratory Rate 16 18 Blood Pressure 145/64 H 134/61 Pulse Oximetry 100 100 Oxygen Delivery Method Room Air Room Air BMI result Body Mass Index 23.5 Labs 09/14/23 18:14 09/15/23 14:06 Imaging Radiology Impressions: ITS Impressions Head CT 09/14/23 18:46 IMPRESSION: No acute intracranial pathology. Medications Medications Current Medications Acetaminophen (Acetaminophen 325 Mg Tablet) 650 mg PO Q6H PRN PRN Reason: Headache/Pain Mild Scale (1-3) Last Admin: 09/26/23 05:48 Dose: 650 mg Al Hydroxide/Mg Hydroxide (Magnesium Hydrox/Alum Hydrox 30 Ml Oral.Susp) 30 ml PO Q6H PRN PRN Reason: Heartburn/Nausea Last Admin: 09/17/23 14:03 Dose: 30 ml Amlodipine Besylate (Amlodipine Besylate 5 Mg Tablet) 5 mg PO DAILY [facility]; Protocol Last Admin: 09/28/23 07:55 Dose: 5 mg Atorvastatin Calcium (Atorvastatin Calcium 20 Mg Tablet) 20 mg PO DAILY [facility] Last Admin: 09/28/23 07:54 Dose: 20 mg Bupropion HCl (Bupropion Hcl Xl 150 Mg Tab.Er.24h) 150 mg PO DAILY [facility] Last Admin: 09/28/23 07:54 Dose: 150 mg Buspirone HCl (Buspirone Hcl 5 Mg Tablet) 5 mg PO TID [facility] Last Admin: 09/28/23 15:23 Dose: 5 mg Clonazepam (Clonazepam 0.5 Mg Tablet) 0.5 mg PO BEDTIME [facility] Last Admin: 09/27/23 20:05 Dose: 0.5 mg Clonazepam (Clonazepam 0.5 Mg Tablet) 0.5 mg PO BID PRN PRN Reason: Anxiety Last Admin: 09/28/23 07:55 Dose: 0.5 mg Magnesium Hydroxide (Milk Of Magnesia 30 Ml Oral.Susp) 30 ml PO DAILY PRN PRN Reason: Constipation Last Admin: 09/16/23 08:27 Dose: 30 ml Meclizine HCl (Meclizine Hcl 25 Mg Tablet) 25 mg PO BID PRN PRN Reason: dizziness Last Admin: 09/26/23 06:25 Dose: 25 mg Mirtazapine (Mirtazapine 30 Mg Tablet) 30 mg PO BEDTIME [facility] Last Admin: 09/27/23 20:04 Dose: 30 mg Omeprazole (Omeprazole 20 Mg Capsule.Dr) 20 mg PO BID@0630,1530 [facility] Last Admin: 09/28/23 15:23 Dose: 20 mg Polyethylene Glycol (Polyethylene Glycol 3350 17 Gm Powd.Pack) 17 gm PO DAILY PRN PRN Reason: Constipation Last Admin: 09/17/23 13:12 Dose: 17 gm Quetiapine Fumarate (Quetiapine Fumarate 200 Mg Tablet) 200 mg PO BEDTIME [facility] Last Admin: 09/27/23 20:05 Dose: 200 mg Sertraline HCl (Sertraline Hcl 50 Mg Tablet) 50 mg PO DAILY [facility] Last Admin: 09/28/23 07:55 Dose: 50 mg Allergies Allergies Allergy/AdvReac Type Severity Reaction Status Date / Time No Known Allergies Allergy Verified 09/14/23 17:49 Assessment & Plan Assessment & Plan (1) Anxiety disorder, unspecified: Status: Acute Code(s): F41.9 - Anxiety disorder, unspecified (2) Depression: Status: Acute Code(s): F32.A - Depression, unspecified (3) Cannabis abuse: Status: Acute Code(s): F12.10 - Cannabis abuse, uncomplicated (4) Cognitive disorder: Status: Acute Code(s): F09 - Unspecified mental disorder due to known physiological condition Plan 09/15: start remeron 7.5 QHS with repeat PRN for insomnia. plan to start SSRI soon. increase omeprazole for GERD Sx. best plan would be to taper klonopin, but will need to get control over anxiety some other way first and establish rapport first. cannabis POS utox noted, pt reported having only tried cannabis over the period of one month sufficiently long ago that she cannot recall quite how long ago it was. work with family on dispo. 09/16: add zoloft 50 mg daily for depression/anxiety. miralax PRN constipation. increase HS remeron to 15 mg. increase omep to 20 BID. otherwise continue current mgmt. 09/17: slept well last night. continues to c/o anxiety. informed of timeframe to expect improvement from sertraline. continue current mgmt. eval cognitive performance. 09/18 increase Seroquel up to 100 mg p.o. q.h.s.. 09/19 increase Klonopin to prn qid 09/20 Less anxious, with dizziness, tinnitus, decrease Klonopin to bid prn. 09/21 increase Seroquel up to 200 mg p.o. q.h.s. 09/21 increase Remeron up to 30 mg p.o. q.h.s. 09/23 add Klonopin 0.5 at bedtime. 09/24 continue tx. 09/25 continue same treatment 09/26 continue treatment plan; restarted clonazepam which fell off 09/27 continue treatment plan Patient educated on: diagnosis Informed Consent: understands Reason for continued inpatient stay Substantial Risk for: med/psych decompensation Time Spent With Patient Time: Total time managing care of this patient today ____ minutes.
[2023-09-28 20:00] VITALS: BP 131/60; PULSE 66; RESP 18; TEMP 36.6; O2SAT 96
[2023-09-28] MEDS: Mirtazapine 30 MG TABLET PO (20:43)
[2023-09-28] MEDS: QUEtiapine Fumarate 200 MG TABLET PO (20:43)
[2023-09-29] MEDS: Omeprazole 20 MG CAPSULE.DR PO ×2 (06:04→15:34)
[2023-09-29 07:55] VITALS: BP 126/62; PULSE 70; RESP 16; TEMP 36.8; O2SAT 100
[2023-09-29] MEDS: Sertraline HCL 50 MG TABLET PO (08:01)
[2023-09-29] MEDS: buPROPion HCl XL 150 MG TAB.ER.24H PO (08:01)
[2023-09-29] MEDS: busPIRone HCl 5 MG TABLET PO ×3 (08:01→21:01)
[2023-09-29] MEDS: Atorvastatin Calcium 20 MG TABLET PO (08:01)
[2023-09-29] MEDS: amLODIPine Besylate 5 MG TABLET PO (08:01)
[2023-09-29] MEDS: Magnesium Hydrox/Alum Hydrox 30 ML ORAL.SUSP PO (15:23)
--- NOTE | 2023-09-29 15:32 | HO.PSYCHPN ---
Subjective Subjective Date of Service: 09/29/23 Reason For Visit: depression si instability Subjective Notes: Conditional Voluntary Interim History: The nursing staff reported the patient had been compliant with treatment used p.r.n. Klonopin frequently. On interview the patient reports that she is anxious she agreed on discontinue Wellbutrin and increase Zoloft to 100 mg p.o. daily to target depression and anxiety. Mental Status Exam Mental Status Exam Patient Appearance: Appropriate Patient Orientation: Person and Situation Level of Consciousness: Awake and Appropriate Patient Behavior: Guarded and Passive Mood Description: Withdrawn Affect Description: Constricted Patient Cognition Impaired: Yes Ability to Follow Directions: Good Speech Pattern: Clear Hallucinations: None Delusions: Not Present Thought Process: Distracted and Slowed Thinking Thought Content: positive for [place] and positive for Poverty of Content Judgement: Fair Diagnostics Vital Signs (24Hr): Vital Signs - 24 hr 09/28/23 20:00 09/29/23 07:55 Temperature 97.9 F 98.2 F Pulse Rate 66 70 Respiratory Rate 18 16 Blood Pressure 131/60 126/62 Pulse Oximetry 96 100 Oxygen Delivery Method Room Air Room Air BMI result Body Mass Index 23.5 Labs 09/14/23 18:14 09/15/23 14:06 Imaging Radiology Impressions: [facility] Impressions Head CT 09/14/23 18:46 IMPRESSION: No acute intracranial pathology. Medications Medications Current Medications Acetaminophen (Acetaminophen 325 Mg Tablet) 650 mg PO Q6H PRN PRN Reason: Headache/Pain Mild Scale (1-3) Last Admin: 09/26/23 05:48 Dose: 650 mg Al Hydroxide/Mg Hydroxide (Magnesium Hydrox/Alum Hydrox 30 Ml Oral.Susp) 30 ml PO Q6H PRN PRN Reason: Heartburn/Nausea Last Admin: 09/29/23 15:23 Dose: 30 ml Amlodipine Besylate (Amlodipine Besylate 5 Mg Tablet) 5 mg PO DAILY [facility]; Protocol Last Admin: 09/29/23 08:01 Dose: 5 mg Atorvastatin Calcium (Atorvastatin Calcium 20 Mg Tablet) 20 mg PO DAILY [facility] Last Admin: 09/29/23 08:01 Dose: 20 mg Buspirone HCl (Buspirone Hcl 5 Mg Tablet) 5 mg PO TID [facility] Last Admin: 09/29/23 15:23 Dose: 5 mg Clonazepam (Clonazepam 0.5 Mg Tablet) 0.5 mg PO BEDTIME [facility] Last Admin: 09/28/23 20:43 Dose: 0.5 mg Clonazepam (Clonazepam 0.5 Mg Tablet) 0.5 mg PO BID PRN PRN Reason: Anxiety Last Admin: 09/28/23 23:44 Dose: 0.5 mg Magnesium Hydroxide (Milk Of Magnesia 30 Ml Oral.Susp) 30 ml PO DAILY PRN PRN Reason: Constipation Last Admin: 09/16/23 08:27 Dose: 30 ml Meclizine HCl (Meclizine Hcl 25 Mg Tablet) 25 mg PO BID PRN PRN Reason: dizziness Last Admin: 09/26/23 06:25 Dose: 25 mg Mirtazapine (Mirtazapine 30 Mg Tablet) 30 mg PO BEDTIME [facility] Last Admin: 09/28/23 20:43 Dose: 30 mg Omeprazole (Omeprazole 20 Mg Capsule.Dr) 20 mg PO BID@0630,1530 [facility] Last Admin: 09/29/23 06:04 Dose: 20 mg Polyethylene Glycol (Polyethylene Glycol 3350 17 Gm Powd.Pack) 17 gm PO DAILY PRN PRN Reason: Constipation Last Admin: 09/17/23 13:12 Dose: 17 gm Quetiapine Fumarate (Quetiapine Fumarate 200 Mg Tablet) 200 mg PO BEDTIME [facility] Last Admin: 09/28/23 20:43 Dose: 200 mg Sertraline HCl (Sertraline Hcl 100 Mg Tablet) 100 mg PO DAILY [facility] Allergies Allergies Allergy/AdvReac Type Severity Reaction Status Date / Time No Known Allergies Allergy Verified 09/14/23 17:49 Assessment & Plan Assessment & Plan (1) Anxiety disorder, unspecified: Status: Acute Code(s): F41.9 - Anxiety disorder, unspecified (2) Depression: Status: Acute Code(s): F32.A - Depression, unspecified (3) Cannabis abuse: Status: Acute Code(s): F12.10 - Cannabis abuse, uncomplicated (4) Cognitive disorder: Status: Acute Code(s): F09 - Unspecified mental disorder due to known physiological condition Plan 09/15: start remeron 7.5 QHS with repeat PRN for insomnia. plan to start SSRI soon. increase omeprazole for GERD Sx. best plan would be to taper klonopin, but will need to get control over anxiety some other way first and establish rapport first. cannabis POS utox noted, pt reported having only tried cannabis over the period of one month sufficiently long ago that she cannot recall quite how long ago it was. work with family on dispo. 09/16: add zoloft 50 mg daily for depression/anxiety. miralax PRN constipation. increase HS remeron to 15 mg. increase omep to 20 BID. otherwise continue current mgmt. 09/17: slept well last night. continues to c/o anxiety. informed of timeframe to expect improvement from sertraline. continue current mgmt. eval cognitive performance. 09/18 increase Seroquel up to 100 mg p.o. q.h.s.. 09/19 increase Klonopin to prn qid 09/20 Less anxious, with dizziness, tinnitus, decrease Klonopin to bid prn. 09/21 increase Seroquel up to 200 mg p.o. q.h.s. 09/21 increase Remeron up to 30 mg p.o. q.h.s. 09/23 add Klonopin 0.5 at bedtime. 09/24 continue tx. 09/25 continue same treatment 09/26 continue treatment plan; restarted clonazepam which fell off 09/28 discontinue Wellbutrin increase Zoloft up to 100. Reason for continued inpatient stay Substantial Risk for: inability to function, rapid decompensation and med/psych decompensation Time Spent With Patient Time: Total time managing care of this patient today __20__ minutes.
[2023-09-29 20:00] VITALS: BP 143/65; PULSE 66; RESP 18; TEMP 36.6; O2SAT 66
[2023-09-29] MEDS: Mirtazapine 30 MG TABLET PO (21:01)
[2023-09-29] MEDS: clonazePAM 0.5 MG TABLET PO (21:01)
[2023-09-29] MEDS: QUEtiapine Fumarate 200 MG TABLET PO (21:01)
[2023-09-30] MEDS: Omeprazole 20 MG CAPSULE.DR PO ×2 (06:06→15:47)
[2023-09-30 08:00] VITALS: BP 130/63; PULSE 82; RESP 16; TEMP 36.4; O2SAT 99
[2023-09-30] MEDS: busPIRone HCl 5 MG TABLET PO ×3 (08:29→20:29)
[2023-09-30] MEDS: Atorvastatin Calcium 20 MG TABLET PO (08:29)
[2023-09-30] MEDS: Sertraline HCL 100 MG TABLET PO (08:29)
[2023-09-30] MEDS: amLODIPine Besylate 5 MG TABLET PO (08:29)
--- NOTE | 2023-09-30 15:22 | HO.PSYCHPN ---
Subjective Subjective Date of Service: 09/30/23 Reason For Visit: depression si instability Subjective Notes: Conditional Voluntary Interim History: The nursing staff reported the patient had been compliant with treatment, she had been quiet with good appetite and she slept well. The occupational therapist will do a [place] today with an [place] test. Mental Status Exam Mental Status Exam Patient Appearance: Appropriate Patient Orientation: Person and Situation Level of Consciousness: Awake and Appropriate Patient Behavior: Guarded and Passive Mood Description: Withdrawn Affect Description: Constricted Patient Cognition Impaired: Yes Ability to Follow Directions: Good Speech Pattern: Clear Hallucinations: None Delusions: Not Present Thought Process: Distracted and Slowed Thinking Thought Content: positive for [place] and positive for Poverty of Content Judgement: Fair Diagnostics Vital Signs (24Hr): Vital Signs - 24 hr 09/29/23 20:00 09/30/23 08:00 Temperature 98 F 97.6 F Pulse Rate 66 82 Respiratory Rate 18 16 Blood Pressure 143/65 H 130/63 Pulse Oximetry 66 L 99 Oxygen Delivery Method Room Air Room Air BMI result Body Mass Index 23.5 Labs 09/14/23 18:14 09/15/23 14:06 Imaging Radiology Impressions: [facility] Impressions Head CT 09/14/23 18:46 IMPRESSION: No acute intracranial pathology. Medications Medications Current Medications Acetaminophen (Acetaminophen 325 Mg Tablet) 650 mg PO Q6H PRN PRN Reason: Headache/Pain Mild Scale (1-3) Last Admin: 09/26/23 05:48 Dose: 650 mg Al Hydroxide/Mg Hydroxide (Magnesium Hydrox/Alum Hydrox 30 Ml Oral.Susp) 30 ml PO Q6H PRN PRN Reason: Heartburn/Nausea Last Admin: 09/29/23 15:23 Dose: 30 ml Amlodipine Besylate (Amlodipine Besylate 5 Mg Tablet) 5 mg PO DAILY [facility]; Protocol Last Admin: 09/30/23 08:29 Dose: 5 mg Atorvastatin Calcium (Atorvastatin Calcium 20 Mg Tablet) 20 mg PO DAILY [facility] Last Admin: 09/30/23 08:29 Dose: 20 mg Buspirone HCl (Buspirone Hcl 5 Mg Tablet) 5 mg PO TID [facility] Last Admin: 09/30/23 08:29 Dose: 5 mg Clonazepam (Clonazepam 0.5 Mg Tablet) 0.5 mg PO BEDTIME [facility] Last Admin: 09/29/23 21:01 Dose: 0.5 mg Clonazepam (Clonazepam 0.5 Mg Tablet) 0.5 mg PO BID PRN PRN Reason: Anxiety Last Admin: 09/28/23 23:44 Dose: 0.5 mg Magnesium Hydroxide (Milk Of Magnesia 30 Ml Oral.Susp) 30 ml PO DAILY PRN PRN Reason: Constipation Last Admin: 09/16/23 08:27 Dose: 30 ml Meclizine HCl (Meclizine Hcl 25 Mg Tablet) 25 mg PO BID PRN PRN Reason: dizziness Last Admin: 09/26/23 06:25 Dose: 25 mg Mirtazapine (Mirtazapine 30 Mg Tablet) 30 mg PO BEDTIME [facility] Last Admin: 09/29/23 21:01 Dose: 30 mg Omeprazole (Omeprazole 20 Mg Capsule.Dr) 20 mg PO BID@0630,1530 [facility] Last Admin: 09/30/23 06:06 Dose: 20 mg Polyethylene Glycol (Polyethylene Glycol 3350 17 Gm Powd.Pack) 17 gm PO DAILY PRN PRN Reason: Constipation Last Admin: 09/17/23 13:12 Dose: 17 gm Quetiapine Fumarate (Quetiapine Fumarate 200 Mg Tablet) 200 mg PO BEDTIME [facility] Last Admin: 09/29/23 21:01 Dose: 200 mg Sertraline HCl (Sertraline Hcl 100 Mg Tablet) 100 mg PO DAILY [facility] Last Admin: 09/30/23 08:29 Dose: 100 mg Allergies Allergies Allergy/AdvReac Type Severity Reaction Status Date / Time No Known Allergies Allergy Verified 09/14/23 17:49 Assessment & Plan Assessment & Plan (1) Anxiety disorder, unspecified: Status: Acute Code(s): F41.9 - Anxiety disorder, unspecified (2) Depression: Status: Acute Code(s): F32.A - Depression, unspecified (3) Cannabis abuse: Status: Acute Code(s): F12.10 - Cannabis abuse, uncomplicated (4) Cognitive disorder: Status: Acute Code(s): F09 - Unspecified mental disorder due to known physiological condition Plan 09/15: start remeron 7.5 QHS with repeat PRN for insomnia. plan to start SSRI soon. increase omeprazole for GERD Sx. best plan would be to taper klonopin, but will need to get control over anxiety some other way first and establish rapport first. cannabis POS utox noted, pt reported having only tried cannabis over the period of one month sufficiently long ago that she cannot recall quite how long ago it was. work with family on dispo. 09/16: add zoloft 50 mg daily for depression/anxiety. miralax PRN constipation. increase HS remeron to 15 mg. increase omep to 20 BID. otherwise continue current mgmt. 09/17: slept well last night. continues to c/o anxiety. informed of timeframe to expect improvement from sertraline. continue current mgmt. eval cognitive performance. 09/18 increase Seroquel up to 100 mg p.o. q.h.s.. 09/19 increase Klonopin to prn qid 09/20 Less anxious, with dizziness, tinnitus, decrease Klonopin to bid prn. 09/21 increase Seroquel up to 200 mg p.o. q.h.s. 09/21 increase Remeron up to 30 mg p.o. q.h.s. 09/23 add Klonopin 0.5 at bedtime. 09/24 continue tx. 09/25 continue same treatment 09/26 continue treatment plan; restarted clonazepam which fell off 09/28 discontinue Wellbutrin increase Zoloft up to 100. 09/29 continue same treatment Reason for continued inpatient stay Substantial Risk for: inability to function, rapid decompensation and med/psych decompensation Time Spent With Patient Time: Total time managing care of this patient today __20__ minutes.
[2023-09-30 20:00] VITALS: BP 135/76; PULSE 75; RESP 16; TEMP 36.6; O2SAT 100
[2023-09-30] MEDS: Mirtazapine 30 MG TABLET PO (20:28)
[2023-09-30] MEDS: clonazePAM 0.5 MG TABLET PO (20:28)
[2023-09-30] MEDS: QUEtiapine Fumarate 200 MG TABLET PO (20:29)
[2023-10-01] MEDS: clonazePAM 0.5 MG TABLET PO ×2 (01:54→20:25)
[2023-10-01] MEDS: Omeprazole 20 MG CAPSULE.DR PO ×2 (06:18→15:14)
[2023-10-01 08:00] VITALS: BP 135/63; PULSE 70; RESP 16; TEMP 36.4; O2SAT 100
[2023-10-01] MEDS: Atorvastatin Calcium 20 MG TABLET PO (08:37)
[2023-10-01] MEDS: amLODIPine Besylate 5 MG TABLET PO (08:37)
[2023-10-01] MEDS: busPIRone HCl 5 MG TABLET PO ×3 (08:37→20:24)
[2023-10-01] MEDS: Sertraline HCL 100 MG TABLET PO (08:37)
[2023-10-01] MEDS: Acetaminophen 325 MG TABLET 650 MG PO (08:46)
--- NOTE | 2023-10-01 15:29 | HO.PSYCHPN ---
Subjective Subjective Date of Service: 10/01/23 Reason For Visit: depression si instability Subjective Notes: Conditional Voluntary Interim History: The nursing staff reported the patient had been compliant with treatment, he reports that her anxiety is slightly better she slept well with Klonopin at night. The occupational therapist did a [place] and [place] she scored 15/30 she has a with a brighter affect. She comes to groups. On interview the patient denies new symptoms she states that she is feeling better. We are going to start working on discharge planning. Mental Status Exam Mental Status Exam Patient Appearance: Appropriate Patient Orientation: Person and Situation Level of Consciousness: Awake and Appropriate Patient Behavior: Guarded and Passive Mood Description: Calm and Constricted Affect Description: Constricted Patient Cognition Impaired: Yes Ability to Follow Directions: Good Speech Pattern: Clear Hallucinations: None Delusions: Not Present Thought Process: Distracted and Slowed Thinking Thought Content: positive for [place] and positive for Poverty of Content Judgement: Fair Diagnostics Vital Signs (24Hr): Vital Signs - 24 hr 09/30/23 20:00 10/01/23 08:00 Temperature 97.9 F 97.5 F Pulse Rate 75 70 Respiratory Rate 16 16 Blood Pressure 135/76 135/63 Pulse Oximetry 100 100 Oxygen Delivery Method Room Air Room Air BMI result Body Mass Index 23.5 Labs 09/14/23 18:14 09/15/23 14:06 Imaging Radiology Impressions: [facility] Impressions Head CT 09/14/23 18:46 IMPRESSION: No acute intracranial pathology. Medications Medications Current Medications Acetaminophen (Acetaminophen 325 Mg Tablet) 650 mg PO Q6H PRN PRN Reason: Headache/Pain Mild Scale (1-3) Last Admin: 10/01/23 08:46 Dose: 650 mg Al Hydroxide/Mg Hydroxide (Magnesium Hydrox/Alum Hydrox 30 Ml Oral.Susp) 30 ml PO Q6H PRN PRN Reason: Heartburn/Nausea Last Admin: 09/29/23 15:23 Dose: 30 ml Amlodipine Besylate (Amlodipine Besylate 5 Mg Tablet) 5 mg PO DAILY [facility]; Protocol Last Admin: 10/01/23 08:37 Dose: 5 mg Atorvastatin Calcium (Atorvastatin Calcium 20 Mg Tablet) 20 mg PO DAILY [facility] Last Admin: 10/01/23 08:37 Dose: 20 mg Buspirone HCl (Buspirone Hcl 5 Mg Tablet) 5 mg PO TID [facility] Last Admin: 10/01/23 15:14 Dose: 5 mg Clonazepam (Clonazepam 0.5 Mg Tablet) 0.5 mg PO BEDTIME [facility] Last Admin: 09/30/23 20:28 Dose: 0.5 mg Clonazepam (Clonazepam 0.5 Mg Tablet) 0.5 mg PO BID PRN PRN Reason: Anxiety Last Admin: 10/01/23 01:54 Dose: 0.5 mg Magnesium Hydroxide (Milk Of Magnesia 30 Ml Oral.Susp) 30 ml PO DAILY PRN PRN Reason: Constipation Last Admin: 09/16/23 08:27 Dose: 30 ml Meclizine HCl (Meclizine Hcl 25 Mg Tablet) 25 mg PO BID PRN PRN Reason: dizziness Last Admin: 09/26/23 06:25 Dose: 25 mg Mirtazapine (Mirtazapine 30 Mg Tablet) 30 mg PO BEDTIME [facility] Last Admin: 09/30/23 20:28 Dose: 30 mg Omeprazole (Omeprazole 20 Mg Capsule.Dr) 20 mg PO BID@0630,1530 [facility] Last Admin: 10/01/23 15:14 Dose: 20 mg Polyethylene Glycol (Polyethylene Glycol 3350 17 Gm Powd.Pack) 17 gm PO DAILY PRN PRN Reason: Constipation Last Admin: 09/17/23 13:12 Dose: 17 gm Quetiapine Fumarate (Quetiapine Fumarate 200 Mg Tablet) 200 mg PO BEDTIME [facility] Last Admin: 09/30/23 20:29 Dose: 200 mg Sertraline HCl (Sertraline Hcl 100 Mg Tablet) 100 mg PO DAILY [facility] Last Admin: 10/01/23 08:37 Dose: 100 mg Allergies Allergies Allergy/AdvReac Type Severity Reaction Status Date / Time No Known Allergies Allergy Verified 09/14/23 17:49 Assessment & Plan Assessment & Plan (1) Anxiety disorder, unspecified: Status: Acute Code(s): F41.9 - Anxiety disorder, unspecified (2) Depression: Status: Acute Code(s): F32.A - Depression, unspecified (3) Cannabis abuse: Status: Acute Code(s): F12.10 - Cannabis abuse, uncomplicated (4) Cognitive disorder: Status: Acute Code(s): F09 - Unspecified mental disorder due to known physiological condition Plan 09/15: start remeron 7.5 QHS with repeat PRN for insomnia. plan to start SSRI soon. increase omeprazole for GERD Sx. best plan would be to taper klonopin, but will need to get control over anxiety some other way first and establish rapport first. cannabis POS utox noted, pt reported having only tried cannabis over the period of one month sufficiently long ago that she cannot recall quite how long ago it was. work with family on dispo. 09/16: add zoloft 50 mg daily for depression/anxiety. miralax PRN constipation. increase HS remeron to 15 mg. increase omep to 20 BID. otherwise continue current mgmt. 09/17: slept well last night. continues to c/o anxiety. informed of timeframe to expect improvement from sertraline. continue current mgmt. eval cognitive performance. 09/18 increase Seroquel up to 100 mg p.o. q.h.s.. 09/19 increase Klonopin to prn qid 09/20 Less anxious, with dizziness, tinnitus, decrease Klonopin to bid prn. 09/21 increase Seroquel up to 200 mg p.o. q.h.s. 09/21 increase Remeron up to 30 mg p.o. q.h.s. 09/23 add Klonopin 0.5 at bedtime. 09/24 continue tx. 09/25 continue same treatment 09/26 continue treatment plan; restarted clonazepam which fell off 09/28 discontinue Wellbutrin increase Zoloft up to 100. 09/29 continue same treatment 09/30 start Aricept 5 mg p.o. q.h.s. to target dementia Reason for continued inpatient stay Substantial Risk for: inability to function, rapid decompensation and med/psych decompensation Time Spent With Patient Time: Total time managing care of this patient today __20__ minutes.
[2023-10-01 20:00] VITALS: BP 131/60; PULSE 70; RESP 18; TEMP 36.6; O2SAT 99
[2023-10-01] MEDS: QUEtiapine Fumarate 200 MG TABLET PO (20:24)
[2023-10-01] MEDS: Mirtazapine 30 MG TABLET PO (20:24)
[2023-10-01] MEDS: Donepezil HCl 5 MG TABLET PO (20:25)
[2023-10-02] MEDS: Omeprazole 20 MG CAPSULE.DR PO ×2 (06:03→15:04)
[2023-10-02 07:00] VITALS: BMI 24.0
[2023-10-02 07:55] VITALS: BP 118/71; PULSE 64; RESP 16; TEMP 36.8; O2SAT 98
[2023-10-02] MEDS: busPIRone HCl 5 MG TABLET PO ×3 (08:04→21:07)
[2023-10-02] MEDS: amLODIPine Besylate 5 MG TABLET PO (08:04)
[2023-10-02] MEDS: Atorvastatin Calcium 20 MG TABLET PO (08:05)
[2023-10-02] MEDS: Sertraline HCL 100 MG TABLET PO (08:05)
--- NOTE | 2023-10-02 16:04 | P.PNPSI_ITS ---
Subjective Subjective Date of Service: 10/02/23 Reason For Visit: depression si instability Subjective Notes: Conditional Voluntary Interim History: The nursing staff reported that the patient has been compliant with treatment, she stated that she felt better. On interview, she denies side effects, the web content & social media manager contacted her daughter, she was on agreement and we will continue with the discharge planning next Friday. Mental Status Exam Mental Status Exam Patient Appearance: Appropriate Patient Orientation: Person and Situation Level of Consciousness: Awake and Appropriate Patient Behavior: Guarded and Passive Mood Description: Calm Affect Description: Withdrawn Patient Cognition Impaired: Yes Ability to Follow Directions: Good Speech Pattern: Clear Hallucinations: None Delusions: Grandiose and Ideas of Reference Thought Process: Distracted and Slowed Thinking Thought Content: positive for [place] and positive for Poverty of Content Judgement: Poor Diagnostics Vital Signs (24Hr): Vital Signs - 24 hr 10/01/23 20:00 10/02/23 07:55 Temperature 97.9 F 98.2 F Pulse Rate 70 64 Respiratory Rate 18 16 Blood Pressure 131/60 118/71 Pulse Oximetry 99 98 Oxygen Delivery Method Room Air Room Air BMI result Body Mass Index 24.0 Labs 09/14/23 18:14 09/15/23 14:06 Imaging Radiology Impressions: [facility] Impressions Head CT 09/14/23 18:46 IMPRESSION: No acute intracranial pathology. Medications Medications Current Medications Acetaminophen (Acetaminophen 325 Mg Tablet) 650 mg PO Q6H PRN PRN Reason: Headache/Pain Mild Scale (1-3) Last Admin: 10/01/23 08:46 Dose: 650 mg Al Hydroxide/Mg Hydroxide (Magnesium Hydrox/Alum Hydrox 30 Ml Oral.Susp) 30 ml PO Q6H PRN PRN Reason: Heartburn/Nausea Last Admin: 09/29/23 15:23 Dose: 30 ml Amlodipine Besylate (Amlodipine Besylate 5 Mg Tablet) 5 mg PO DAILY [facility]; Protocol Last Admin: 10/02/23 08:04 Dose: 5 mg Atorvastatin Calcium (Atorvastatin Calcium 20 Mg Tablet) 20 mg PO DAILY [facility] Last Admin: 10/02/23 08:05 Dose: 20 mg Buspirone HCl (Buspirone Hcl 5 Mg Tablet) 5 mg PO TID [facility] Last Admin: 10/02/23 15:04 Dose: 5 mg Clonazepam (Clonazepam 0.5 Mg Tablet) 0.5 mg PO BEDTIME [facility] Last Admin: 10/01/23 20:25 Dose: 0.5 mg Clonazepam (Clonazepam 0.5 Mg Tablet) 0.5 mg PO BID PRN PRN Reason: Anxiety Last Admin: 10/01/23 01:54 Dose: 0.5 mg Donepezil HCl (Donepezil Hcl 5 Mg Tablet) 5 mg PO BEDTIME [facility] Last Admin: 10/01/23 20:25 Dose: 5 mg Magnesium Hydroxide (Milk Of Magnesia 30 Ml Oral.Susp) 30 ml PO DAILY PRN PRN Reason: Constipation Last Admin: 09/16/23 08:27 Dose: 30 ml Meclizine HCl (Meclizine Hcl 25 Mg Tablet) 25 mg PO BID PRN PRN Reason: dizziness Last Admin: 09/26/23 06:25 Dose: 25 mg Mirtazapine (Mirtazapine 30 Mg Tablet) 30 mg PO BEDTIME [facility] Last Admin: 10/01/23 20:24 Dose: 30 mg Omeprazole (Omeprazole 20 Mg Capsule.Dr) 20 mg PO BID@0630,1530 [facility] Last Admin: 10/02/23 15:04 Dose: 20 mg Polyethylene Glycol (Polyethylene Glycol 3350 17 Gm Powd.Pack) 17 gm PO DAILY PRN PRN Reason: Constipation Last Admin: 09/17/23 13:12 Dose: 17 gm Quetiapine Fumarate (Quetiapine Fumarate 200 Mg Tablet) 200 mg PO BEDTIME [facility] Last Admin: 10/01/23 20:24 Dose: 200 mg Sertraline HCl (Sertraline Hcl 100 Mg Tablet) 100 mg PO DAILY [facility] Last Admin: 10/02/23 08:05 Dose: 100 mg Allergies Allergies Allergy/AdvReac Type Severity Reaction Status Date / Time No Known Allergies Allergy Verified 09/14/23 17:49 Assessment & Plan Assessment & Plan (1) Anxiety disorder, unspecified: Status: Acute Code(s): F41.9 - Anxiety disorder, unspecified (2) Depression: Status: Acute Code(s): F32.A - Depression, unspecified (3) Cannabis abuse: Status: Acute Code(s): F12.10 - Cannabis abuse, uncomplicated (4) Cognitive disorder: Status: Acute Code(s): F09 - Unspecified mental disorder due to known physiological condition Plan 09/15: start remeron 7.5 QHS with repeat PRN for insomnia. plan to start SSRI soon. increase omeprazole for GERD Sx. best plan would be to taper klonopin, but will need to get control over anxiety some other way first and establish rapport first. cannabis POS utox noted, pt reported having only tried cannabis over the period of one month sufficiently long ago that she cannot recall quite how long ago it was. work with family on [place]. 09/16: add zoloft 50 mg daily for depression/anxiety. miralax PRN constipation. increase HS remeron to 15 mg. increase omep to 20 BID. otherwise continue current mgmt. 09/17: slept well last night. continues to c/o anxiety. informed of timeframe to expect improvement from sertraline. continue current mgmt. eval cognitive performance. 09/18 increase Seroquel up to 100 mg p.o. q.h.s.. 09/19 increase Klonopin to prn qid 09/20 Less anxious, with dizziness, tinnitus, decrease Klonopin to bid prn. 09/21 increase Seroquel up to 200 mg p.o. q.h.s. 09/21 increase Remeron up to 30 mg p.o. q.h.s. 09/23 add Klonopin 0.5 at bedtime. 09/24 continue tx. 09/25 continue same treatment 09/26 continue treatment plan; restarted clonazepam which fell off 09/28 discontinue Wellbutrin increase Zoloft up to 100. 09/29 continue same treatment 09/30 start Aricept 5 mg p.o. q.h.s. to target dementia 10/01 keep same treatment. Reason for continued inpatient stay Substantial Risk for: inability to function, rapid decompensation and med/psych decompensation Time Spent With Patient Time: Total time managing care of this patient today __20__ minutes.
[2023-10-02 20:00] VITALS: BP 125/59; PULSE 79; RESP 16; TEMP 36.6; O2SAT 99
[2023-10-02] MEDS: QUEtiapine Fumarate 200 MG TABLET PO (21:07)
[2023-10-02] MEDS: Mirtazapine 30 MG TABLET PO (21:07)
[2023-10-02] MEDS: Donepezil HCl 5 MG TABLET PO (21:07)
[2023-10-02] MEDS: clonazePAM 0.5 MG TABLET PO (21:08)
[2023-10-03] MEDS: Omeprazole 20 MG CAPSULE.DR PO ×2 (06:12→15:00)
[2023-10-03 08:32] VITALS: BP 156/69; PULSE 70; RESP 18; TEMP 36.5; O2SAT 100
[2023-10-03] MEDS: clonazePAM 0.5 MG TABLET PO ×2 (08:33→20:38)
[2023-10-03] MEDS: amLODIPine Besylate 5 MG TABLET PO (08:33)
[2023-10-03] MEDS: Sertraline HCL 100 MG TABLET PO (08:34)
[2023-10-03] MEDS: busPIRone HCl 5 MG TABLET PO ×3 (08:34→20:37)
[2023-10-03] MEDS: Atorvastatin Calcium 20 MG TABLET PO (08:34)
--- NOTE | 2023-10-03 15:38 | P.PNPSI_ITS ---
Subjective Subjective Date of Service: 10/03/23 Reason For Visit: depression si instability Subjective Notes: Conditional Voluntary Interim History: The nursing staff reported the patient had been compliant with treatment she is alert, cooperative and participating groups. She is going to be discharged tomorrow. On interview the patient is future oriented and she feels much better. Mental Status Exam Mental Status Exam Patient Appearance: Appropriate Patient Orientation: Person and Situation Level of Consciousness: Awake and Appropriate Patient Behavior: Guarded and Passive Mood Description: Withdrawn Affect Description: Constricted Patient Cognition Impaired: Yes Ability to Follow Directions: Good Speech Pattern: Clear Hallucinations: None Delusions: Ideas of Reference Thought Process: Distracted and Slowed Thinking Thought Content: positive for [place] and positive for Circumstantial Judgement: Fair Diagnostics Vital Signs (24Hr): Vital Signs - 24 hr 10/02/23 20:00 10/03/23 08:32 Temperature 97.9 F 97.7 F Pulse Rate 79 70 Respiratory Rate 16 18 Blood Pressure 125/59 L 156/69 H Pulse Oximetry 99 100 Oxygen Delivery Method Room Air Room Air BMI result Body Mass Index 24.0 Labs 09/14/23 18:14 09/15/23 14:06 Imaging Radiology Impressions: ITS Impressions Head CT 09/14/23 18:46 IMPRESSION: No acute intracranial pathology. Medications Medications Current Medications Acetaminophen (Acetaminophen 325 Mg Tablet) 650 mg PO Q6H PRN PRN Reason: Headache/Pain Mild Scale (1-3) Last Admin: 10/01/23 08:46 Dose: 650 mg Al Hydroxide/Mg Hydroxide (Magnesium Hydrox/Alum Hydrox 30 Ml Oral.Susp) 30 ml PO Q6H PRN PRN Reason: Heartburn/Nausea Last Admin: 09/29/23 15:23 Dose: 30 ml Amlodipine Besylate (Amlodipine Besylate 5 Mg Tablet) 5 mg PO DAILY [facility]; Protocol Last Admin: 10/03/23 08:33 Dose: 5 mg Atorvastatin Calcium (Atorvastatin Calcium 20 Mg Tablet) 20 mg PO DAILY [facility] Last Admin: 10/03/23 08:34 Dose: 20 mg Buspirone HCl (Buspirone Hcl 5 Mg Tablet) 5 mg PO TID [facility] Last Admin: 10/03/23 15:00 Dose: 5 mg Clonazepam (Clonazepam 0.5 Mg Tablet) 0.5 mg PO BEDTIME [facility] Last Admin: 10/02/23 21:08 Dose: 0.5 mg Clonazepam (Clonazepam 0.5 Mg Tablet) 0.5 mg PO BID PRN PRN Reason: Anxiety Last Admin: 10/03/23 08:33 Dose: 0.5 mg Donepezil HCl (Donepezil Hcl 5 Mg Tablet) 5 mg PO BEDTIME [facility] Last Admin: 10/02/23 21:07 Dose: 5 mg Magnesium Hydroxide (Milk Of Magnesia 30 Ml Oral.Susp) 30 ml PO DAILY PRN PRN Reason: Constipation Last Admin: 09/16/23 08:27 Dose: 30 ml Meclizine HCl (Meclizine Hcl 25 Mg Tablet) 25 mg PO BID PRN PRN Reason: dizziness Last Admin: 09/26/23 06:25 Dose: 25 mg Mirtazapine (Mirtazapine 30 Mg Tablet) 30 mg PO BEDTIME TAE Last Admin: 10/02/23 21:07 Dose: 30 mg Omeprazole (Omeprazole 20 Mg Capsule.Dr) 20 mg PO BID@0630,1530 [facility] Last Admin: 10/03/23 15:00 Dose: 20 mg Polyethylene Glycol (Polyethylene Glycol 3350 17 Gm Powd.Pack) 17 gm PO DAILY PRN PRN Reason: Constipation Last Admin: 09/17/23 13:12 Dose: 17 gm Quetiapine Fumarate (Quetiapine Fumarate 200 Mg Tablet) 200 mg PO BEDTIME TAE Last Admin: 10/02/23 21:07 Dose: 200 mg Sertraline HCl (Sertraline Hcl 100 Mg Tablet) 100 mg PO DAILY [facility] Last Admin: 10/03/23 08:34 Dose: 100 mg Allergies Allergies Allergy/AdvReac Type Severity Reaction Status Date / Time No Known Allergies Allergy Verified 09/14/23 17:49 Assessment & Plan Assessment & Plan (1) Anxiety disorder, unspecified: Status: Acute Code(s): F41.9 - Anxiety disorder, unspecified (2) Depression: Status: Acute Code(s): F32.A - Depression, unspecified (3) Cannabis abuse: Status: Acute Code(s): F12.10 - Cannabis abuse, uncomplicated (4) Cognitive disorder: Status: Acute Code(s): F09 - Unspecified mental disorder due to known physiological condition Plan 09/15: start remeron 7.5 QHS with repeat PRN for insomnia. plan to start SSRI soon. increase omeprazole for GERD Sx. best plan would be to taper klonopin, but will need to get control over anxiety some other way first and establish rapport first. cannabis POS utox noted, pt reported having only tried cannabis over the period of one month sufficiently long ago that she cannot recall quite how long ago it was. work with family on dispo. 09/16: add zoloft 50 mg daily for depression/anxiety. miralax PRN constipation. increase HS remeron to 15 mg. increase omep to 20 BID. otherwise continue current mgmt. 09/17: slept well last night. continues to c/o anxiety. informed of timeframe to expect improvement from sertraline. continue current mgmt. eval cognitive performance. 09/18 increase Seroquel up to 100 mg p.o. q.h.s.. 09/19 increase Klonopin to prn qid 09/20 Less anxious, with dizziness, tinnitus, decrease Klonopin to bid prn. 09/21 increase Seroquel up to 200 mg p.o. q.h.s. 09/21 increase Remeron up to 30 mg p.o. q.h.s. 09/23 add Klonopin 0.5 at bedtime. 09/24 continue tx. 09/25 continue same treatment 09/26 continue treatment plan; restarted clonazepam which fell off 09/28 discontinue Wellbutrin increase Zoloft up to 100. 09/29 continue same treatment 09/30 start Aricept 5 mg p.o. q.h.s. to target dementia 10/01 keep same treatment. 10/02 keep same treatment, discharge tomorrow Reason for continued inpatient stay Substantial Risk for: inability to function, rapid decompensation and med/psych decompensation Time Spent With Patient Time: Total time managing care of this patient today __20__ minutes.
--- NOTE | 2023-10-03 15:47 | P.DS_ITS ---
DS: Providers Provider Date of Service: 10/03/23 Date of admission: 09/15/23 15:04 Date of discharge: 10/04/23 Primary care physician: Unknown Physician DS: Diagnosis Discharge Diagnosis (1) Anxiety disorder, unspecified: Status: Acute (2) Depression: Status: Acute (3) Cannabis abuse: Status: Acute (4) Cognitive disorder: Status: Acute DS: Medications Discharge Medications Home Medications: Home Medications ?Medication ?Instructions ?Recorded ?Confirmed clonazepam 0.5 mg tablet 0.5 mg PO BID PRN Anxiety 08/21/22 09/14/23 amlodipine 5 mg tablet 5 mg PO DAILY 09/14/23 09/14/23 atorvastatin 20 mg tablet 20 mg PO DAILY 09/14/23 09/14/23 bupropion HCl 200 mg tablet,12 hr 200 mg PO QAM 09/14/23 09/14/23 sustained-release buspirone 5 mg tablet 5 mg PO BID 09/14/23 09/14/23 meclizine 25 mg tablet 25 mg PO BID PRN dizziness 09/14/23 09/14/23 omeprazole 20 mg capsule,delayed 20 mg PO DAILY 09/14/23 09/14/23 release quetiapine 50 mg tablet 50 mg PO BEDTIME 09/14/23 09/14/23 Previous Rx's ?Medication ?Instructions ?Recorded amlodipine 5 mg tablet 5 mg PO DAILY 30 days #30 tabs 10/03/23 atorvastatin 20 mg tablet 20 mg PO DAILY 30 days #30 tabs 10/03/23 buspirone 5 mg tablet 5 mg PO TID 30 days #90 tabs 10/03/23 clonazepam 0.5 mg tablet 0.5 mg PO BEDTIME 30 days #30 tabs 10/03/23 clonazepam 0.5 mg tablet 0.5 mg PO BID PRN Anxiety 30 days 10/03/23 #60 tabs donepezil 5 mg tablet 5 mg PO BEDTIME 30 days #30 tabs 10/03/23 meclizine 25 mg tablet 25 mg PO BID PRN dizziness 30 days 10/03/23 #60 tabs mirtazapine 30 mg tablet 30 mg PO BEDTIME 30 days #30 tabs 10/03/23 omeprazole 20 mg capsule,delayed 20 mg PO BID@0630,1530 30 days #60 08/02/24 release caps polyethylene glycol 3350 17 gram 17 g PO DAILY PRN Constipation #30 10/03/23 oral powder packet ea quetiapine 200 mg tablet 200 mg PO BEDTIME 30 days #30 tabs 10/03/23 sertraline 100 mg tablet 100 mg PO DAILY 30 days #30 tabs 10/03/23 Mental Status Exam Mental Status Exam Patient Appearance: Well Grooomed and Appropriate Patient Orientation: Person and Situation Level of Consciousness: Awake and Appropriate Patient Behavior: Guarded and Passive Mood Description: Withdrawn Affect Description: Constricted Patient Cognition Impaired: Yes Ability to Follow Directions: Good Speech Pattern: Clear Hallucinations: None Delusions: Not Present Thought Process: Distracted and Slowed Thinking Thought Content: positive for [place] and positive for Poverty of Content Judgement: Fair Data Imaging Diagnostic Imaging Impressions Head CT 09/14/23 18:46 IMPRESSION: No acute intracranial pathology. DS: Summary Hospital Course Hospital Course: The patient is a 68-year-old [place] female mother of adult children with a past history of major depressive disorder, PTSD, past abuse of benzodiazepines and recent cognitive impairment. The patient was brought to the emergency room after she reported suicidal ideation in the context of conflicts with the family. She was assessed by crisis and transferring to this facility for psychiatric stabilization. Please see the HPI of the admission note for further details. On the intake the patient was confused, very anxious and labile complaining of poor sleep and neurovegetative symptoms such as poor appetite poor sleep and lack of energy. 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 She had been treated as an outpatient and she has prior admissions into the hospital for exacerbation of depression. The daughter's also reported that most likely the patient have a cognitive impairment that it was more evident in the last months. We review her list of medications and she had been taking Wellbutrin for years. She also had been started on Zoloft and Remeron. The patient has a chronic use of benzodiazepines and benzodiazepine abuse but her main complaint was poor sleep. We start using a low dose of Klonopin at night 0.5 with for improvement. We decided to discontinue Wellbutrin since her anxiety was increased. We titrated up Zoloft up to 100 mg and increase Remeron up to 30 mg p.o. q.h.s. to target depression with for improvement. Seroquel had been started to be titrated slowly up to 200 mg p.o. q.h.s. as an augmentation for depression and insomnia. The patient's mood improved she was able to participate in groups and she was future oriented. The occupational therapist did a [place] testing and she scored below normal range. We started Aricept 5 mg p.o. q.h.s. as neuro protective. The patient's mood improved she was future oriented and since there were no safety concerns discharge planning was discussed. The patient will be discharged to the care of her family. Time spent discussing smoking cessation with patient: 3 to 10 minutes Status at Discharge Cognitive/behavioral status at discharge: Impaired at baseline Functional status at discharge: independent ambulation Overall status at discharge: patient is back to baseline Time Spent with Patient Time attestation: Total time managing care of this patient today _30___ minutes. Time spent: Less than 30 minutes Discharge Plan Discharge Anticipated Discharge Date/Time: 10/04/23 11:00 Patient Disposition: Home, Self-Care Discharge Diagnosis: Major depressive disorder recurrent episode severe without psychosis. Dementia Alzheimer's type Referrals: Wade Rodriguez APRN: [facility] [Other] - 10/24/23 1:30 pm (Hospital discharge appointment for psychiatric medication management. Appointment in person at [facility].) [facility] (therapy) [Other] - 1 Week (Hospital discharge referral for therapy services Clinician from the agency will reach out to you to schedule initial intake with them.) Discharge Medications: New buspirone 5 mg Tablet 5 mg PO TID 30 Days Qty: 90 0RF atorvastatin 20 mg Tablet 20 mg PO DAILY 30 Days Qty: 30 0RF donepezil 5 mg Tablet 5 mg PO BEDTIME 30 Days Qty: 30 0RF polyethylene glycol 3350 17 gram Powder In Packet 17 g PO DAILY PRN (Reason: Constipation) Qty: 30 0RF clonazepam 0.5 mg Tablet 0.5 mg PO BEDTIME 30 Days Qty: 30 0RF clonazepam 0.5 mg Tablet 0.5 mg PO BID PRN (Reason: Anxiety) 30 Days Qty: 60 0RF sertraline 100 mg Tablet 100 mg PO DAILY 30 Days Qty: 30 0RF quetiapine 200 mg Tablet 200 mg PO BEDTIME 30 Days Qty: 30 0RF amlodipine 5 mg Tablet 5 mg PO DAILY 30 Days Qty: 30 0RF Protocol: Hold for SBP< HOLD for SBP < : 90 meclizine 25 mg Tablet 25 mg PO BID PRN (Reason: dizziness) 30 Days Qty: 60 0RF mirtazapine 30 mg Tablet 30 mg PO BEDTIME 30 Days Qty: 30 0RF omeprazole 20 mg Capsule,Delayed Release(Dr/Ec) 20 mg PO BID@0630,1530 30 Days Qty: 60 0RF Discontinued buspirone 5 mg tablet 5 mg PO BID amlodipine 5 mg tablet 5 mg PO DAILY meclizine 25 mg tablet 25 mg PO BID PRN (Reason: dizziness) quetiapine 50 mg tablet 50 mg PO BEDTIME atorvastatin 20 mg tablet 20 mg PO DAILY omeprazole 20 mg capsule,delayed release(DR/EC) 20 mg PO DAILY bupropion HCl 200 mg tablet sustained-release 12 hr 200 mg PO QAM clonazepam 0.5 mg tablet 0.5 mg PO BID PRN (Reason: Anxiety) Discharge Orders: Discharge Order (Routine); Ordered 10/04/23 Ordered By: Allan Medeiros Diet: Advance to usual diet Activity on Discharge: As tolerated Stand Alone Forms: Patient Portal Discharge page Print Language: Mold[place] Care Plan Goals: Care plan goals achieved in this admission Health Concerns: Continue with outpatient providers and specialists such as PCP and other providers Plan of Treatment: Continue with outpatient services as per discharge plan Assessment: Elderly [place] female with a past history of major depressive disorder, most likely cluster B personality traits and several psychosocial stressors admitted for suicidal ideation. She was cross tapered from Wellbutrin that she has been taking for years to SSRIs to target anxiety and depression with for improvement. Currently she is on Remeron 30 mg p.o. q.h.s. Zoloft 100 mg, low doses of p.r.n. benzodiazepines and Seroquel 200 mg at night with for tolerability. The patient is future oriented ready to be discharged to the community.
[2023-10-03 20:00] VITALS: BP 135/64; PULSE 67; RESP 18; TEMP 37; O2SAT 98
[2023-10-03] MEDS: Mirtazapine 30 MG TABLET PO (20:38)
[2023-10-03] MEDS: Donepezil HCl 5 MG TABLET PO (20:38)
[2023-10-03] MEDS: QUEtiapine Fumarate 200 MG TABLET PO (20:38)
[2023-10-04] MEDS: Omeprazole 20 MG CAPSULE.DR PO (06:30)
[2023-10-04 08:15] VITALS: BP 143/69; PULSE 68; RESP 16; TEMP 35.8; O2SAT 100
[2023-10-04] MEDS: Sertraline HCL 100 MG TABLET PO (08:30)
[2023-10-04 08:31] VITALS: BP 143/69
[2023-10-04] MEDS: Atorvastatin Calcium 20 MG TABLET PO (08:31)
[2023-10-04] MEDS: busPIRone HCl 5 MG TABLET PO (08:31)
[2023-10-04] MEDS: amLODIPine Besylate 5 MG TABLET PO (08:31)
[2023-10-04] MEDS: Acetaminophen 325 MG TABLET 650 MG PO (08:33)
== END 2023-10-04 11:05 | disposition home or self-care (01) | DRG 885 ==
LOC: HO.ED 19:10 → HO.PGERI 09-15 15:14
PROVIDERS: Physician Assistant; Admitting Provider Psychiatry & Neurology Psychiatry; Emergency Provider Internal Medicine; Visit Provider Psychiatry & Neurology Psychiatry
DX: F33.2 Major depressive disorder, recurrent severe without psychotic features (principal); F41.9 Anxiety disorder, unspecified; G30.9 Alzheimer's disease, unspecified; F02.80 Dementia in other diseases classified elsewhere, unspecified severity, without behavioral disturbance, psychotic disturbance, mood disturbance, and anxiety; F12.10 Cannabis abuse, uncomplicated; Z79.899 Other long term (current) drug therapy
CPT/HCPCS: 36415; 70450; 80048; 80053; 80179; 80307; 81001; 85025; 93005; 99285; S9485

== ENCOUNTER → 2023-09-14 17:48 | Outpatient (BNV) | payer MEDICARE, MEDICAID, SELFPAY | PROVIDERS: Emergency Provider Internal Medicine; Visit Provider Internal Medicine Cardiovascular Disease | DX: R94.31 Abnormal electrocardiogram [ECG] [EKG] (principal) | CPT/HCPCS: 93010 ==

== ENCOUNTER → 2023-09-15 15:04 | Outpatient (BNV) | payer MEDICARE, MEDICAID, SELFPAY | PROVIDERS: Admitting Provider Psychiatry & Neurology Psychiatry; Emergency Provider Internal Medicine; Visit Provider Psychiatry & Neurology Psychiatry | DX: F32.2 Major depressive disorder, single episode, severe without psychotic features (principal); F41.9 Anxiety disorder, unspecified; F12.10 Cannabis abuse, uncomplicated; F09 Unspecified mental disorder due to known physiological condition | CPT/HCPCS: 90792; 99231; 99232; 99238 ==